=== PATIENT | male | born 1955 | race Caucasian/White ===

== ENCOUNTER → 2019-09-26 13:08 | Outpatient (CLI) | payer MEDICARE, BC, SELFPAY | PROVIDERS: PCP Family Medicine; Referring Provider Family Medicine; Visit Provider Family Medicine | DX: R68.89 Other general symptoms and signs (principal) | CPT/HCPCS: 87635; G2023; U0004 ==

== ENCOUNTER → 2020-08-26 11:32 | Outpatient (CLI) | payer MEDICARE, BC, SELFPAY ==
[2020-08-26 15:38] LABS: AST(SGOT) 16 U/L (15-37); Alanine Aminotransfer ALT/SGPT 20 U/L (16-61); Albumin, Serum 3.6 g/dL (3.2-5.0); Alkaline Phosphatase 95 U/L (45-117); Anion Gap 5 (5-15); BUN 9 mg/dL (7-18); BUN/Creat Ratio 7.5 RATIO (10-20); Calcium,Total 9.1 mg/dL (8.5-10.1); Chloride 97 mmol/L (98-107); Cholesterol 165 mg/dL (200); EST Glomerular Filtration Rate 65 mL/min (>60); Est Glom Filt Rate - Afr Amer 78 mL/min (>60); Globulin 3.5 g/dL (2.2-4.2); Glucose 101 mg/dL (74-106); High Density Lipoprotein 47 mg/dL; Potassium 3.9 mmol/L (3.5-5.1); Protein, Total 7.1 g/dL (6.4-8.2); Sodium Level 134 mmol/L (136-145); Triglycerides 253 mg/dL; Very Low Density Lipoprotein 51 mg/dL (5-40)
== END ==
PROVIDERS: PCP Family Medicine; Referring Provider Family Medicine; Visit Provider Family Medicine
DX: I10 Essential (primary) hypertension (principal); E78.5 Hyperlipidemia, unspecified
CPT/HCPCS: 36415; 80053; 80061

== ENCOUNTER → 2020-09-01 09:27 | Outpatient (CLI) | payer MEDICARE, BC, SELFPAY ==
--- NOTE | 2020-09-01 14:24 | PFTCOMP ---
COMPLETE PULMONARY FUNCTION TEST INTERPRETATION Brief HPI: Patient is a 65 year old male, currently under the care of Dr. Streeter, who presents to [facility] for complete pulmonary function tests secondary to diagnosis of COPD. Respiratory therapist reports good effort and reproducible results. Interpretation: Forced expiration spirometry shows no large airways obstructive ventilatory defect with an FEV1 of 79% predicted. There is no significant bronchodilator response by strict ATS criteria. Spirograms are of good quality and plateau normally. The respiratory flow volume loop shows a normal pattern. Lung volumes by body plethysmography show a normal total lung capacity at 5.15 L, 88% predicted. All other lung volumes are within normal limits. Diffusion capacity by carbon monoxide is normal at 90% predicted. The airway resistance is slightly elevated. No previous pulmonary function tests were available for review. Impression: These pulmonary function tests are grossly within normal limits
== END ==
PROVIDERS: PCP Family Medicine; Referring Provider Family Medicine; Visit Provider Family Medicine
DX: J44.9 Chronic obstructive pulmonary disease, unspecified (principal)
CPT/HCPCS: 94060; 94726; 94729

== ENCOUNTER → 2020-11-04 20:03 | Outpatient (CLI) | payer MEDICARE, BC, SELFPAY ==
--- NOTE | 2020-11-04 09:26 | HP.SP.AD_ITS ---
History - History Date of Eval: 11/02/20 Medical Diagnosis (from RX): CVA,I63.81;Dysarthria,I63.9,R47.1;Right sided weakness,R53.1;Ataxia,I69.393 Date of Onset of Diagnosis: 07/31/20 Previous speech therapy: Yes Results: Home Health for about 2-3 weeks, d/c 2/2 PT/OT recommendations for outpatient balance training. Other Relevant Medical History/Diagnoses/Surgery: Pt seen on this date for skill ed cognitive-linguistic assessment. Pt seen s/p CVA on July 31, 2020. Pt referred to this facility for PT/OT/ST for further evaluation of goals met during home health services since onset of CVA. Pt on speech therapy home health caseload for cognition and dysphagia, however orders for today's evaluation were only for cognition. Pt's present for session. Pt on nasal cannula, 2L. Pt described his typical day at home to include sitting and watching tv 2/2 having depression and no motivation. Pt reported he used to be more active via having a flower garden, however he no longer engages with this activity. MILITARY TECHNOLOGY MANAGER encouraged jigsaw puzzles, word search, and cross words. Pt's reporting Pt is also experiencing 'extensive white brain matter disease,' however it appears at this time Pt does not have a formal dx. 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 Visual Assistive Devices: Glasses Patients Living Arrangements: With Significant Other Subjective Dysphagia - Symptoms Reported Symptoms/Problems with: Choking, Difficulty Swallowing Liquids Other: meds whole w/puree w/no overt s/s of a/p - Current Diet Solids Current Diet: Regular Other: During HH Pt was originally on Puree, however @ d/c MILITARY TECHNOLOGY MANAGER upgraded to regular - Current Diet Liquids Current Liquids: Thin Objective Cog/Ling/Com - Test Administered Njbjbxwpw-Hmunkciqqf-Tymryxmcntdxu Assessment Administered: Yes Xbyyywvqv-Nfmhdtqwyd-Xkyyypjrqczzx Assessment: Cognitive ? Linguistic skills were evaluated using patient/family interview, skilled observation and informal evaluation through tasks completed by the patient. - Orientation Orientation: Person, Place, Day, Birthdate, Medical Diagnosis - Identification Body parts/objects: WFL Numbers: WFL - Answer Yes/No Questions Simple: WFL Complex: WFL - Follows Commands 2 Step: WFL - Repetition Words: WFL Sentences: WFL - Naming Responsive naming: WFL Abstract: Moderate - Recall Repeating Words: Immediate: 0%, benefits from min A semantic cues. Short-term: 0%, benefits from min A semantic cues and max A MC cues. Working memory: Pt demonstrated great difficulty continuous subtracting 7 from 100, He performed the task with 20% acc independently. - Problem Solving Simple: Moderate - Deductive Reasoning Deductive Reasoning: Mild - Cognitive Linguistic Supervision/Saftey Awareness of deficits: WFL Being left home alone: Mild - Executive Function Comments Comments: Pt completed planning, sequencing, and organizing task via clock drawing w/100% acc independently. Pt included appropriate contour, 12 hr markers equally spaced, and had two distinct lengths for the hr/min hands which were placed at the target time. Pt completed attention, problem solving/reasoning, and planning task via alternating trail making task with 100% acc independently following initial task instructions. Pt completed visuospatial task via copying a picture of a cube with 100% acc independently. Cognitive Linguistic Comments - Comments Areas of Greatest Deficits During today's evaluation, Pt demonstrated strengths in executive functioning, attention, and repetition. Areas of need for this Pt include memory, thought flexibility, and problem solving/reasoning. Objective Dysarthira/Motor - Speech Intelligibility Single Words: WFL Phrases: WFL Sentences: Mild Paragraphs: Mild Conversation: Mild - Volume Volume: WFL Loudness: [place] loudness - Observation Observation of Apraxia of Speech: No Oral Groping for Placement: No Inconsistent Errors: No - Awareness/Strategy Use Uses strategies intermittently to improve intelligibility or listener's understanding of message: Yes - Comments Informal Observations -: Pt's speech was observed informally throughout conversation tasks during session. Pt is edentulous and does not like to wear his dentures. Given his lack of dentition, Pt's baseline speech intelligibility would be expected to be lower than a speaker with dentition. This unknown speaker would rate his speech intelligibility as 75% acc during conversation. Pt would benefit from direct education re: compensatory strategies to assist in improving overall speech intelligibility. Plan - Plan Plan: Will recommend Pt for weekly outpatient speech therapy to address mild- moderate cognitive impairment characterized by immediate and short term memory loss, difficulty with word retrieval, and problem solving/reasoning. Pt would benefit from training in compensatory strategies for recall and word retrieval, as well as cognitive training to improve cognitive functioning. Without skilled ST services, the Pt is at risk for decreased independence completing daily living tasks. - Recommendations MBS: Yes Treatment Warranted: Yes - Frequency Frequency: 1x/Week Duration: 6 Weeks Visits in this POC: 6 - Prognosis Prognosis: Good - Goals that are Established: Determination:: Goals will be added/modified as deemed necessary and appropriate. Therapy will be discontinued when results of re-evaluation indicate therapy is no longer needed or lack of progress has been documented. - Goal #1-5 Goal #1: Pt will complete basic to mod complex immediate, short-term, and working memory tasks with 90% acc independently across 3 measured opportunities. Goal #2: Pt will complete basic to mod complex functional math, money, and time tasks with 90% acc independently across 3 measured opportunities. Goal #3: Pt will complete basic to mod complex problem solving/reasoning and safety awareness tasks with 90% acc independently across 3 measured opportunities Goal #4: Pt will complete basic to mod complex divergent naming tasks with 90% acc independently across 3 measured opportunities to improve word retrieval. Goal #5: Pt will utilize compensatory strategies to improve speech clarity with 90% acc in simple to mod complex conversation independently across 3 measured opportunities. Education - Patient has Indicated that the Following Identified Educational Needs: None The Patient has indicated that they have no educational or learning abilities that may effect their care.: Yes - Patient Instruction Patient Education: Treatment Plan, Goals Person Taught: Patient, Significant Other Teaching Method: Discussion Response to teaching: Return demonstration, Verbalize understanding
== END ==
PROVIDERS: PCP Family Medicine; Referring Provider Family Medicine; Visit Provider Family Medicine
DX: G47.10 Hypersomnia, unspecified (principal); I63.9 Cerebral infarction, unspecified; I69.322 Dysarthria following cerebral infarction; I69.351 Hemiplegia and hemiparesis following cerebral infarction affecting right dominant side; I69.393 Ataxia following cerebral infarction; Z99.81 Dependence on supplemental oxygen
CPT/HCPCS: 92523; 95810

== ENCOUNTER → 2020-11-27 20:00 | Outpatient (CLI) | payer MEDICARE, BC, SELFPAY | PROVIDERS: PCP Family Medicine; Referring Provider Family Medicine; Visit Provider Family Medicine | DX: G47.33 Obstructive sleep apnea (adult) (pediatric) (principal); R09.02 Hypoxemia | CPT/HCPCS: 95811 ==

== ENCOUNTER → 2020-12-15 20:00 | Outpatient (CLI) | payer MEDICARE, BC, SELFPAY | PROVIDERS: PCP Family Medicine; Referring Provider Family Medicine; Visit Provider Family Medicine | DX: G47.31 Primary central sleep apnea (principal) | CPT/HCPCS: 95811 ==

== ENCOUNTER → 2021-01-15 12:49 | Outpatient (CLI) | payer MEDICARE, BC, SELFPAY ==
[2021-01-15 13:11] VITALS: PULSE 103; PULSE 106; PULSE 109; PULSE 115; PULSE 79; PULSE 81; PULSE 95; O2SAT 90; O2SAT 91; O2SAT 92; O2SAT 93; O2SAT 94; O2SAT 97
--- NOTE | 2021-01-16 10:18 | PCM.PSN.6M ---
PSN 6 Minute Walk Test 6 Minute Walk Test 6 Minute Walk Test: 6 Minute Walk Test PSN:6-Minute Walk Test Start: 01/15/21 13:11 Freq: Status: Active Protocol: [id number].[id number] Document 01/15/21 13:11 KIAH (Rec: 01/15/21 13:13 KIAH [id number]) 6 Minute Walk Test Date Performed 01/15/21 Time Performed 13:00 Height 5 ft 7 in Weight: 86.183 kg Weight in Pounds 190.[address]: Eduardo Streeter Assistive device used: None Pre-test Oxygen Delivery Method Room Air Pulse Ox (%) 92 Pulse Rate (60-100 beats/min) 79 Dyspnea Kiana Scale (0-10) 0 Exertion Kiana Scale (6-20) 6 1st minute Oxygen Delivery Method Room Air Pulse Ox (%) 91 Pulse Rate (60-100 beats/min) 95 2nd minute Oxygen Delivery Method Room Air Pulse Ox (%) 90 Pulse Rate (60-100 beats/min) 103 H 3rd minute Oxygen Delivery Method Room Air Pulse Ox (%) 92 Pulse Rate (60-100 beats/min) 115 H 4th minute Oxygen Delivery Method Room Air Pulse Ox (%) 92 Pulse Rate (60-100 beats/min) 109 H 5th minute Oxygen Delivery Method Room Air Pulse Ox (%) 93 Pulse Rate (60-100 beats/min) 106 H 6th minute Oxygen Delivery Method Room Air Pulse Ox (%) 94 Pulse Rate (60-100 beats/min) 109 H Dyspnea Kiana Scale (0-10) 3 Exertion Kiana Scale (6-20) 13 Post-test Oxygen Delivery Method Room Air Pulse Ox (%) 97 Pulse Rate (60-100 beats/min) 81 Full Laps Walked 20 Partial Lap, Number of Tiles Walked 10 Total Distance Walked (ft) 1190 Interpretation Interpretation: The patient ambulated 1190 feet over the course of 6 minutes beginning on room air without assistive devices. Pretesting oxygen saturation was noted to be 92% on room air. With ambulation, the elza oxygen saturation was 90%. There was no significant exertional oxygen desaturation. Recommendations Recommendations: There is no indication for the use of supplemental oxygen at this time.
== END ==
PROVIDERS: PCP Family Medicine; Referring Provider Family Medicine; Visit Provider Family Medicine
DX: R09.02 Hypoxemia (principal); Z87.891 Personal history of nicotine dependence
CPT/HCPCS: 94618

== ENCOUNTER → 2021-01-28 13:26 | Outpatient (CLI) | payer MEDICARE, BC, SELFPAY ==
--- NOTE | 2021-01-28 15:14 | ST.MBS ---
Modified Barium Swallow - Patient Information Study Date: 01/28/21 Study Time: 13:30 Direct Billable Minutes: 135 Total Minutes procedure & reportin Diagnosis: CVA Referring Physician: Eduardo Streeter Reason for Referral: Suspected aspiration/penetration of thin liquids Medical History: Pt seen on this date d/t concerns of aspiration/penetration at bedside during OP speech therapy at [facility]. Pt w/ overt s/s of aspiration/penetration w/thin liquids at bedside when consuming sips of water throughout OP therapy sessions. Pt s/p CVA on July 31, 2020. Pt referred to this facility for PT/OT/ST for further evaluation of goals met during home health services since onset of CVA. Pt was receiving speech therapy home health for cognition and dysphagia, however orders for the outpatient evaluation were only for cognition, so BSE was not performed. Today, Pt's present for session. Pt described his typical day at home to include sitting and watching tv 2/2 having depression and no motivation. Pt reported he used to be more active via having a flower garden, however he no longer engages with this activity. Pt's reporting Pt is also experiencing 'extensive white brain matter disease,' however it appears at this time Pt does not have a formal dx. At this time, Pt and Pt's endorse difficulty w/thin liquids and choking on solids at home. Current Diet Ordered: Regular/Thins Dentition: Edentulous Mental Status: Impaired Comment: Cognitive deficits: memory, problem solving/reasoning Respiratory Status: Oxygenating on Room Air - Penetration-Aspiration Scale Penetration-Aspiration Scale: OBJECTIVE ASSESSMENT OF SWALLOW FUNCTION (QUANTITATIVE ? PER TRIAL): PENETRATION / ASPIRATION SCALE (DIAL): 1 = does not enter airway 2 = enters airway/above vocal folds/ejected 3 = enters airway/above vocal folds/not ejected 4 = enters airway/contacts vocal folds/ejected 5 = enters airway/contacts vocal folds/not ejected 6 = enters airway/below vocal folds/ejected 7 = enters airway/below vocal folds/not ejected despite effort 8 = enters airway/below vocal folds/no effort VIDEOFLOROSCOPIC SCALE SCORE (DIAL): Grade I = aspiration of material that has penetrated into the laryngeal vestibule, intact cough reflex Grade II = aspiration < 10 % of the bolus, intact cough reflex Grade III = aspiration of < 10 % of the bolus, reduced cough reflex or aspiration of > 10 % of the bolus, intact cough reflex Grade IV = aspiration of > 10 % of the bolus, reduced cough reflex - Penetration-Aspiration Scale Score Thin Liquid via teaspoon Result: 1= does not enter airway Thin Liquid via teaspoon Trial 2 Result: 1= does not enter airway - Increased residue; Cued reswallow Thin Liquid via large single sip from cup Result: 3= enters airways/above vocal folds/not ejected - Penetration w/second swallow Thin Liquid via sequential sips from cup Result: 8= enters airway/below vocal folds/no effort - SILENT ASPIRATION [place] Thick Liquid via large single sip from cup Result: 3= enters airways/above vocal folds/not ejected [place] Thick Liquid via small single sip from cup Result: 2= enter airway/above vocal folds/ejected [place] Thick Liquid via small single sip from cup Result: 1= does not enter airway - Cued reswallow 2/2 increased residue Pudding via teaspoon Result: 1= does not enter airway Cookie Result: 1= does not enter airway - Pt required two swallows to clear from oral cavity. Thin Liquid via small single sip from cup Effortful swallow Result: 8= enters airway/below vocal folds/no effort - SILENT ASPIRATION Thin Liquid via small single sip from cup - Oral Hold Result: 1= does not enter airway Thin Liquid via small single sip from cup Chin tuck Result: 3= enters airways/above vocal folds/not ejected Thin Liquid via single sip from straw Result: 1= does not enter airway - Cued double swallow to clear residue - Oral Phase Labial Seal: No Labial Escape Tongue Control During Bolus Hold: Posterior escape of less than half of bolus Bolus Preparation/Mastication: Slow prolonged chewing/mashing with complete recollection Bolus Transport/Lingual Motion: Delayed initiation of tongue motion Oral Residue: Trace residue lining oral structures - Pharyngeal Phase Initiation of Pharyngeal Swallow: Bolus head in pyriforms Soft Palate Elevation: Trace column of contrast/air between soft palate and pharyngeal wall Laryngeal Elevation: Partial superior movement thyroid cart/partial apprx aryt-epig petiole Anterior Hyoid Excursion: Partial anterior movement - Very minimal anterior excursion. Epiglottic Movement: Partial inversion Laryngeal Vestibule Closure at Height of Swallow: Incomplete; narrow column of air/contrast in laryngeal vestibule Pharyngeal Stripping Wave: Present - diminished - Reduced pharyngeal pressure/contraction Pharyngoesophageal Segment Opening: Parital distension and partial duration; parital obstruction of flow Tongue Base Retraction: Trace column of contrast between tongue base & post. pharyngeal wall Pharyngeal Residue: Collection of residue within or on pharyngeal structures - Esophageal Phase Esophageal Clearance: Esophageal retention - Treatment Strategies Effects of treatment strategies attemped:: Chin tuck posture = INEFFECTIVE 3 second bolus hold = EFFECTIVE Cough and reswallow = MOD EFFECTIVE Effortful swallow = EFFECTIVE W/SMALL BOLUS Double swallow = EFFECTIVE Reduced bolus size = EFFECTIVE - Diagnosis/Impression Diagnosis: Moderate Oropharyngeal Dysphagia (R13.12) Impression: The oral phase is primarily marked by: Mild mastication insufficiency likely 2/2 Pt being edentulous. Swallow onset delay approximately 2-3 seconds in length resulting in premature bolus loss to the pyriform sinuses The pharyngeal phase is primarily marked by: Delayed pharyngeal swallow onset timing resulting w/head of bolus in pyriform sinus contributing to prandial aspiration Poor epiglottic inversion resulting in reduced closure of the airway during deglutition Reduced laryngeal elevation and anterior hyoid excursion resulting in poor laryngeal vestibule closure and reduced PES distention SILENT ASPIRATION of thin liquids w/large or sequential cup sips Reduced strength of tongue base retraction and pharyngeal contraction/stripping wave coupled w/ reduced hyolaryngeal elevation and excursion resulted in insufficient epiglottic inversion, insufficient laryngeal vestibule closure, and reduced distention/duration of the PES w/noted significant residue remaining in the valleculae and lining the aryepiglottic folds. Small drinks, bolus hold, and double effortful swallows were effective to reduce amount of initial residue The esophageal phase is primarily marked by: Minimal esophageal retention below the level of the PES - Recommendations Diet: Mechanical Soft Textures - Easy to Chew, Thin Liquids Comment: Straws OK w/small sips Compensatory Strategies: Small Bites, Small Sips - One at a time, Slow Rate, Multiple Swallows - Two effortful swallows for every bite/drink, Alternate bites/solids and sips/liquids, Sitting upright, Remain sitting upright for 30 minutes after PO intake, Assist with verbal cues to use recommended strategies Supervision: 1:1 Close Supervision Recommend Repeat Modified Barium Swallow: TBD Need for Skilled Speech Therapy Services: Yes - Continue w/OP speech therapy Comment: Patient requires intensive skilled speech-language intervention targeting: continued diet texture management training and implementation of recommended compensatory strategies detailed above to reduce aspiration risk training and implementation of recommended oropharyngeal strengthening exercises to facilitate improved lingual strength, laryngeal vestibule closure/pressure, pharyngeal motility w/hyolaryngeal elevation, tongue base retraction), and PES opening ([place], [place], [place]aker, Effortful Swallows) Education Completed: 1. Described result of evaluation., 2. Pt understands evaluation & agrees with goals and treatment plan., 4. Family/caregivers understand evaluation & agree w/ goals & tx plan., 7. Pt requires further education on strategies & risks. - Status Active ST Patient: Active
== END ==
PROVIDERS: PCP Family Medicine; Referring Provider Family Medicine; Visit Provider Family Medicine
DX: R13.10 Dysphagia, unspecified (principal); Z86.73 Personal history of transient ischemic attack (TIA), and cerebral infarction without residual deficits
CPT/HCPCS: 74230; 92611

== ENCOUNTER 2021-02-22 15:00 | Outpatient (RCR) | payer MEDICARE, BC, SELFPAY ==
--- NOTE | 2020-10-08 16:09 | HP.PTEVAL ---
Patient's Visit Information MICHELE ALLEN is a 65 year old M referred to Physical Therapy by Dr. Eduardo Streeter, DO with a diagnosis of CVA, L/S stenosis, falls, dizzyness. Date of Evaluation: 10/08/20 Physical Therapist: Emiliano Rocha, DPT, OCS, CSCS - Visit Plan Frequency: 3x /Week Duration: 4-6 Weeks Plan: 3x/week for 3-6 weeks for. 1. sink and home based ex for postural and LE strength and progress to I. 2. Gait training for balance with weight shfit, turning, high step, stairs, head movements. 3. Progress to gym based strengthening to tolerance. 4. HS and gastroc stretching. - Subjective I had a stroke on 07/31/20, speech became rough. Went to ER and had CATSCAN adn has had 3 strokes, changed meds for cholesterol adn HTN. Found COPD , sleep apnea tests to be done. Then went to [facility] for rehab. Did not like it. Too loud and interruptive. Was in 4-5 days. Went home for home heatlh for PT, OT, speech and now PT. Has fallen 3x adn stumbles often. Had some balance issues prior to stroke. Will ahve OT and speech next week. Sees Dr. Olguin for neuro. No pain. Is on disability since 2004, fell of doc and brike hip and has had some back and hip issues since. Will see [facility] for knee adn hip soon. H/Oneck surgery. Balance much worse since stroke, no spinning dizzyness. Has had two falls since home and maybe due to fatigue. One time fell getting into car. One time tripped over o2. Has o2 since stroke and pushes tank around. Feels weak on R side adn generally. Has steps at home which with raling which he seems to maneuver OK. Carpeting is more challenging. Can catch R foot. Does not use cane or walker. Sleeping is not great and will have study. Basic ADLs are OK and gets bathroom I. Spends day sitting around. Doesn't have any hobbies and very sedentary. No regular exercises. - Objective 99% SO2 on oxygen, and 74 Resting heart rate. 93% after 500 feet walk and steps ith 88 HR. No obvious SOB. I ambulation today without AD. Trasnfers bed and chair I. Steps with rail reciprocal and I, slightly tired after. HS and gastroc mod tight. L/S AROM WFL and imited in standing more by balance. reflexes 3/3 patella adn achilles. Sensatio LE WNL to gross light touch. Coordination to reciprocal toe tap slight R deficits, heel to wells OK. LE AROM WFL. Strength LE 4 R and 4+/L. UE AROM WFL but R elevation limited slightly vs L and weaker 4- vs 4 in UE. - Balance Scores Functional Gait Assessment Score: 21 % Disability: 30.0000 CATSIB Score (Max score 120 seconds): 64 - Goals Goal 1:: Pt I appropriate home strength to limit effects of sedentary lifestyle Goal Time Frame: 4-6 Weeks Goal 2:: Pt score 25+/30 on FGA to limit fall risk. Goal Time Frame: 4-6 Weeks Goal 3:: Pt feel back to mobility and safety level prior to stroke. Goal Time Frame: 4-6 Weeks Goal 4:: 43/30 LEFS to show improved mobility. - Rehabilitation Potential Physical Therapy Diagnosis: Pt very sedentary and weaker R side giving fall risk and limiting mobility Rehabilitation Potential: Fair - Anticipated Interventions Patient/Client Instruction: Educate patient on: Condition, Plan of Care For the Purpose of:: To improve muscle performance and motor function, To increase tolerance to activity/condition/position, To improve gait and locomotor functions Therapeutic Exercise to Include: Strength training, Balance training, Flexibilty training, Gait and locomotor training For the Purpose of:: To improve muscle performance and motor function, To improve ability of physical actions for home/community/work/leisure, To improve gait and locomotor functions, To improve balance Thank you for the opportunity to evaluate your patient. For Medicare and Medicare HMO plans, please review the plan of care and approve it. It will need to be FAXED BACK to us at [phone] for Medicare purposes. For Medicare only, by signing this I certify the plan of care. Please let me know if there are questions or concerns regarding this plan of care. Physician Signature: Date:
--- NOTE | 2020-11-05 15:54 | HP.OTEVAL_ITS ---
Patient's Visit Information MICHELE ALLEN is a 65 year old M, referred to Occupational Therapy by Dr. Eduardo Streeter DO, with a diagnosis of CVA weakness. Date of Evaluation: 11/02/20 Occupational Therapist: JOE Chaparro/Briseyda, CHT - Subjective This 65 year old male was seen for OT eval with dx of CVA. pt states three mon ths ago he woke up and couldn't talk well - called squad and was taken to ER. pt states his right side does feel weak, pt was placed on O2 2 liters following his stroke. pt is right handed and is having trouble with his handwriting, cutting food. Disability since 2004. pt states he has spends time watching tv. Pt states he feels he has lost strength since his stroke and this has affected his ind. with ADLS and IADLs, cutting food and limited writing. pt states he was ind. with driving to the pharmacy and to his dr. solano. is retired but she does go to check on her 93 year old mother daily for a few hours. pt states he does struggle with depression. states pt was dx small vessel disease effecting white matter. - Pain back pain 0 Pain Intensity Range: 0, 5 - ROM ROM Comments: pt demo bilateral ROM WNL - Strength Shoulder: right 4/5 left 4+/5 Elbow: right 4/5 left 4+/5 Small Appliance Assembly Supervisor: right 50# left 65# Lateral Pinch: right 10# left 10# Tripod Pinch: right 8# left 10# - Sensation Sensation Comments: denies - Nine Hole Peg Right: 40.34 sec. Left: 28.36 sec. - Quick DASH-Disab of Arm,Shoulder& Hand Quick DASH Score: 34.0900 - Goals Goal:: pt will demo a increase in UE MMT to 5/5 to increase pts ind. with ADLs and IADls by d.c. pt will demo a increase in right tree thinner strength by 15# or greater to increase pts ind. with ADLs and IADLs by d/c Goal:: pt will demo a reduction in right hand 9hole peg testing to less than 30sec. indicating increase in FMS by d.c. pt will demo legible writing ability by d.c Goal:: pt will report he is IND with food cutting without spillage by d/c - Rehabilitation General Assessment: pt demo with weakness and limitations with his FMS. This is limiting pts ind with ADLs and IADLS. pt would benefit from skilled OT services 2-3x week for 4 weeks to increase his functional strength and increase fine motor coordination. Pt demo understanding and agrees with POC. agrees as well. Rehabilitation Potential: Good - Anticipated Interventions A/AAROM/PROM, Strengthening, Fine Motor Coord/Jose, Neuro Reeducation - Visit Plan Frequency: 2-3x /Week Duration: 4 Weeks TEXT: Thank you for the opportunity to evaluate your patient. For Medicare and Medicare HMO plans, please review the plan of care and approve it. It will need to be FAXED BACK to us at [phone] for Medicare purposes. Please let me know if there are questions or concerns regarding this plan of care. Physician Signature: Date:
--- NOTE | 2020-11-16 09:33 | HP.SP.AD_ITS ---
History - History Date of Eval: 11/02/20 Medical Diagnosis (from RX): CVA,I63.81;Dysarthria,I63.9,R47.1;Right sided weakness,R53.1;Ataxia,I69.393 Previous speech therapy: Yes Results: Home Health for about 2-3 weeks, d/c 2/2 PT/OT recommendations for outpatient balance training Other Relevant Medical History/Diagnoses/Surgery: Pt seen on this date for skilled cognitive-linguistic assessment. Pt seen s/p CVA on July 31, 2020. Pt referred to this facility for PT/OT/ST for further evaluation of goals met during home health services since onset of CVA. Pt on speech therapy home health caseload for cognition and dysphagia, however orders for today's evaluation were only for cognition. Pt's present for session. Pt on nasal cannula, 2L. Pt described his typical day at home to include sitting and watching tv 2/2 having depression and no motivation. Pt reported he used to be more active via having a flower garden, however he no longer engages with this activity. NEUROLOGY TECHNICIAN encouraged jigsaw puzzles, word search, and cross words. Pt's reporting Pt is also experiencing 'extensive white brain matter disease,' however it appears at this time Pt does not have a formal dx. 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 Linguistic skills were evaluated using patient/family interview, skilled observation and informal evaluation through tasks completed by the patient. - Orientation Orientation: Person, Place, Day, Birthdate, Medical Diagnosis - Identification Body parts/objects: WFL Numbers: WFL - Answer Yes/No Questions Simple: WFL Complex: WFL - Follows Commands 2 Step: WFL - Repetition Words: WFL Sentences: WFL - Naming Responsive naming: WFL Abstract: Moderate - Recall Repeating Words: Immediate: 0%, benefits from min A semantic cues. Short-term: 0%, benefits from min A semantic cues and max A MC cues. Working memory: Pt demonstrated great difficulty continuous subtracting 7 from 100, He performed the task with 20% acc independently. - Problem Solving Simple: Moderate - Deductive Reasoning Deductive Reasoning: Mild - Cognitive Linguistic Supervision/Saftey Awareness of deficits: WFL Being left home alone: Mild - Executive Function Comments Comments: Pt completed planning, sequencing, and organizing task via clock drawing w/100% acc independently. Pt included appropriate contour, 12 hr markers equally spaced, and had two distinct lengths for the hr/min hands which were placed at the target time. Pt completed attention, problem solving/reasoning, and planning task via alternating trail making task with 100% acc independently following initial task instructions. Pt completed visuospatial task via copying a picture of a cube with 100% acc independently. Cognitive Linguistic Comments - Comments Areas of Greatest Deficit During today's evaluation, Pt demonstrated strengths in executive functioning, attention, and repetition. Areas of need for this Pt include memory, thought flexibility, and problem solving/reasoning. Objective Dysarthira/Motor - Speech Intelligibility Single Words: WFL Phrases: WFL Sentences: Mild Paragraphs: Mild Conversation: Mild - Volume Volume: WFL Loudness: [place] loudness - Observation Observation of Apraxia of Speech: No Oral Groping for Placement: No Inconsistent Errors: No - Awareness/Strategy Use Uses strategies intermittently to improve intelligibility or listener's understanding of message: Yes - Comments Informal Observations -: Pt's speech was observed informally throughout conversation tasks during session. Pt is edentulous and does not like to wear his dentures. Given his lack of dentition, Pt's baseline speech intelligibility would be expected to be lower than a speaker with dentition. This unknown speaker would rate his speech intelligibility as 75% acc during conversation. Pt would benefit from direct education re: compensatory strategies to assist in improving overall speech intelligibility. Plan - Plan Plan: Will recommend Pt for weekly outpatient speech therapy to address mild- moderate cognitive impairment characterized by immediate and short term memory loss, difficulty with word retrieval, and problem solving/reasoning. Pt would benefit from training in compensatory strategies for recall and word retrieval, as well as cognitive training to improve cognitive functioning. Without skilled ST services, the Pt is at risk for decreased independence completing daily living tasks. - Recommendations MBS: Yes Treatment Warranted: Yes - Frequency Frequency: 1x/Week Duration: 6 Weeks Visits in this POC: 6 - Prognosis Prognosis: Good - Goals that are Established: Determination:: Goals will be added/modified as deemed necessary and appropriate. Therapy will be discontinued when results of re-evaluation indicate therapy is no longer needed or lack of progress has been documented. - Goal #1-5 Goal #1: Pt will complete basic to mod complex immediate, short-term, and working memory tasks with 90% acc independently across 3 measured opportunities. Goal #2: Pt will complete basic to mod complex functional math, money, and time tasks with 90% acc independently across 3 measured opportunities. Goal #3: Pt will complete basic to mod complex problem solving/reasoning and safety awareness tasks with 90% acc independently across 3 measured opportunities Goal #4: Pt will complete basic to mod complex divergent naming tasks with 90% acc independently across 3 measured opportunities to improve word retrieval. Goal #5: Pt will utilize compensatory strategies to improve speech clarity with 90% acc in simple to mod complex conversation independently across 3 measured opportunities. Education - Patient has Indicated that the Following Identified Educational Needs: None The Patient has indicated that they have no educational or learning abilities that may effect their care.: Yes - Patient Instruction Patient Education: Diagnosis, Treatment Plan, Goals Person Taught: Patient, Significant Other Teaching Method: Discussion Response to teaching: Return demonstration, Verbalize understanding
--- NOTE | 2020-12-03 07:41 | OTREVAL_ITS ---
Dr. Eduardo Streeter, DO, It has been my pleasure to treat MICHELE ALLEN over the last 9 visits for CVA weakness. Please see the progress note below for an update on the occupational therapy plan of care! Subjective: Pt arrives to session with and O2 tank. Pt states that he is doing fine. Objective/Function: pt has been seen for 9 OT visits- pt has a HEP for UB strength using t-band and free wts. In OT therapy is challenging him with a divers PRE program on the BTE and FMS. Pt became fatigued very easily today, so times were reduces, but resistance was increased. Nine Hole Peg: Decreased from 40 seconds to 37.72 seconds. MMT of BUE 4+/5. After re-measure pt demo with making gains with strength and endurance of UB and talking with pt's , pt would benefit from 2x a week for 4 more weeks starting after 12/18/20 to keep increasing strength and FMS and independence in ADLs and IADLs. Plan Frequency: 2x /Week Duration: 4 Weeks Plan: cont POC. initiate gym equipment. Fine motor Goals - Goals Patient Goals: Regain Strength, Use Hand/Wrist/Arm Normally Again, Be More Independent in ADLS Goal:: pt will demo a increase in UE MMT to 5/5 to increase pts ind. with ADLs and IADls by d.c. pt will demo a increase in right planting supervisor strength by 15# or greater to increase pts ind. with ADLs and IADLs by d/c Goal:: pt will demo a reduction in right hand 9hole peg testing to less than 30sec. indicating increase in FMS by d.c. pt will demo legible writing ability by d.c Goal:: pt will report he is IND with food cutting without spillage by d/c Anticipated Interventions Anticipated Interventions: A/AAROM/PROM, Strengthening, Fine Motor Coord/Jose, Neuro Reeducation Please do not hesitate to contact me at [phone] by phone or if you have questions or concerns regarding this new plan of care! Sincerely, Radha Caal, OTR/L, CHT
--- NOTE | 2020-12-30 14:20 | HP.PTREVAL_ITS ---
Dr. Eduardo Streeter, DO, It has been my pleasure to treat MICHELE ALLEN over the last 18 visits for CVA, L/S stenosis, falls, dizzyness. Please see the progress note below for an update on the physical therapy plan of care! Subjective: I am getting better. OT going much better. Getting around a lot better. Balance is not the greatest yet but can walk functionally OK. Still doesn't trust self on steps as he needs to hang on the handrail. Sleep is so- so. Will get CPAP today. Still on O2. Basic ADLs I at home. Has not mowed the lawn due to fatigue. Not doing home exercises regularly. Saw Syl yesterday and getting CPAP for sleep apnea. Will have MBS also. Objective/Function: FGA is +4 from last session and +6 opverall. improving confidence with ambulation. Noncompliance with hoime walking and HEP have limited progress but due to fatigue which CPAP could help out with. Plan Plan: f/u one month for FGA and activity check adn d/c if doing well, pt to call prior if problems. Goal is to maintain improvement over next month without regular PT but via HEP Balance/Gait/Functional tests - Balance/Special Test Scores Functional Gait Assessment Score: 27 % Disability: 10.0000 CATSIB Score (Max score 120 seconds): 64 Lower Extremity Functional Score: 38 Goals Goal 1:: Pt I appropriate home strength to limit effects of sedentary lifestyle Goal Time Frame: 4-6 Weeks Goal Progress: noncompliant Goal 2:: Pt score 25+/30 on FGA to limit fall risk. Goal Time Frame: 4-6 Weeks Goal Progress: Goal Met Goal 3:: Pt feel back to mobility and safety level prior to stroke. Goal Time Frame: 4-6 Weeks Goal Progress: 60% Goal 4:: 43/30 LEFS to show improved mobility. Goal Progress: slow progress. Goal 5:: Walk 8 houses down at home without pain or fatigue. Goal Time Frame: 4-6 Weeks Goal Progress: noncompliant trying. Anticipated Interventions Patient/Client Instruction: Educate patient on: Condition, Plan of Care For the Purpose of:: To improve muscle performance and motor function, To increase tolerance to activity/condition/position, To improve gait and locomotor functions Therapeutic Exercise to Include: Strength training, Balance training, Flexibilty training, Gait and locomotor training For the Purpose of:: To improve muscle performance and motor function, To improve ability of physical actions for home/community/work/leisure, To improve gait and locomotor functions, To improve balance Please do not hesitate to contact me at [phone] by phone or if you have questions or concerns regarding this new plan of care! Sincerely, Emiliano Rocha, DPT, OCS, CSCS
--- NOTE | 2020-12-30 16:07 | HP.OTDCSUM ---
It has been my pleasure to treat MICHELE ALLEN under orders from Dr. Eduardo Streeter DO, for the diagnosis of CVA weakness for a total of 16 visit(s). Please see the following information for a summary of their discharge status. % Improvement: 75 Objective/Function: MMT SH: 4+/5 (was 4/5 at eval). MMT Elbow: 4+/5 (was 4/5 at eval). 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 3-J: 16# (was 8# at eval). Nine-hole: R- 31.53 (was 40.34 sec). pt has demo a increase in strength Patient Goals: Regain Strength, Use Hand/Wrist/Arm Normally Again, Be More Independent in ADLS Goal:: pt will demo a increase in UE MMT to 5/5 to increase pts ind. with ADLs and IADls by d.c. pt will demo a increase in right fire extinguisher repairer inspector strength by 15# or greater to increase pts ind. with ADLs and IADLs by d/c Goal:: pt will demo a reduction in right hand 9hole peg testing to less than 30sec. indicating increase in FMS by d.c. pt will demo legible writing ability by d.c Goal:: pt will report he is IND with food cutting without spillage by d/c Plan: d/c Discharge Comments: Pt was seen for 16 visits to increase strength and FMS after a CVA. He has met 3/5 goals, with those progressing at home. He has made significant gains since the beginning of therapy and should be d/c at this time. Pt to continue to do HEP and continue to help around the house to continue to increase strength and FMS. Pt and agree and understand d/c. If there are questions or concerns regarding this patient's occupational therapy, please fell free to call me at [phone]. Thank you for the referral of this patient. Sincerely, Radha Caal, OTR/L, CHT
--- NOTE | 2021-04-22 10:57 | HP.SP.DC ---
ST Discharge Summary - Discharged: Discharge: MICHELE ALLEN, 66 yo male, was seen for initial speech evaluation at [facility] on 11/16/2020 secondary to dx of CVA. Pt attended 9 additional sessions from initial evaluation targeting dysarthria, memory, problem solving/reasoning, and executive functioning skills. Pt being discharged from speech therapy caseload on this date, 04/22/21, after deeming Pt is close to baseline functioning. Home exercise program provided for memory skills. Thank you for allowing me to participate the care of your Pt. Will reevaluate at Pt?s request following script from physician.
== END 2021-02-22 19:00 | disposition home or self-care (01) ==
LOC: SP 15:00
PROVIDERS: PCP Family Medicine; Referring Provider Family Medicine; Visit Provider Family Medicine
DX: I69.322 Dysarthria following cerebral infarction (principal); I69.393 Ataxia following cerebral infarction; I69.351 Hemiplegia and hemiparesis following cerebral infarction affecting right dominant side
CPT/HCPCS: 92507; 92526; 97110; 97163; 97164; 97166; 97530

== ENCOUNTER → 2021-09-13 | Outpatient (CLI) | payer MEDICARE, BC, SELFPAY ==
--- NOTE | 2021-09-13 16:20 | MRI_ITS ---
STUDY: MRI CERVICAL SPINE WITHOUT CONTRAST REASON FOR EXAM: Male, 66 years old. Gait disorder; Hx cervical spine fusion; neck pain TECHNIQUE: Standardized fat and water weighted pulse sequences were obtained in the sagittal and axial planes. COMPARISON: None FINDINGS: Normal foramen magnum and brainstem-cervical cord junction. Cerebellar tonsils are normally positioned. Normal craniovertebral junction. The odontoid is intact. Mild degenerative spurring noted about the predental distance. There is straightening of the normal cervical lordosis. Solid interbody fusion noted at the C4/5, C5/6 and C6/7 levels; an anterior fixation plate and screws extend from C4 to C7, with associated signal dropout and distortion. C2/3 disc is degenerated; neural foramina are patent at this level. C3/4 disc is degenerated with annular bulging and marginal osteophytes. There is minimal right paracentral broad-based disc protrusion at this level, indenting the ventral aspect of the thecal sac and minimally contacting the cervical cord, which is not effaced. Neural foramina are severely narrowed bilaterally at this level by uncinate and facet hypertrophy. Posterior osseous ridge at C4 minimally indents the ventral aspect of the thecal sac. Additional posterior osseous ridge at the C7 level minimally flattens the ventral aspect of the thecal sac. Neural foramina are widely patent at the C4/5 level. There is moderate asymmetric narrowing of the left neural foramen at C5/6 by uncinate hypertrophy. There is mild left-sided neural foraminal encroachment at C6/7 by uncinate hypertrophy. C7/T1 neural foramina are patent. Upper thoracic discs are degenerated without evidence for annular bulge or disc extrusion. There is no thecal sac stenosis. No intrinsic signal abnormalities are noted within the cervical cord. There is no abnormal epidural fluid collection. Cervical facet arthritis is present, most severe at C3/4. MRI/Spine Cervical (Routine) IMPRESSION: Solid interbody fusion from C4 to C7 with anterior fixation plate and screws in place. Annular bulging, minimal right paracentral disc protrusion, and bilateral facet hypertrophy at C3/4 level. No thecal sac stenosis or intrinsic cervical cord signal abnormalities identified. Electronically Signed: Brad Castillo MD at 1:14 EDT ,
--- NOTE | 2021-09-13 16:20 | MRI_ITS ---
STUDY: MRI BRAIN WITH AND WITHOUT CONTRAST REASON FOR EXAM: Male, 66 years old. Hx CVA; mild cognitive impairment; gait disorder TECHNIQUE: Standardized multiplanar fat and water weighted pulse sequences were obtained. IV DOTAREM 20 CC was administered for the contrast portion of the examination. COMPARISON: None. FINDINGS: Old lacunar infarct with cystic parenchymal loss is present in the posterior aspect of the left thalamic lobe and within the central aspect of the left caudate nucleus/basal ganglia. There is mild to moderate cerebral atrophy with widening of the extra-axial spaces and ventricular dilatation. There are multiple white matter hyperintensities, distributed throughout the deep white matter tracts of the cerebral hemispheres, consistent with moderate chronic white matter ischemic changes. There is no evidence for recent intracranial ischemia or other cause of cytotoxic edema on diffusion weighted imaging (DWI). No focal or suspicious parenchymal lesions of the brain. No abnormal enhancement of the brain parenchyma or meninges or dura. No visualized thickening of the meninges or dura. There is no extra-axial fluid accumulation. Normal flow voids within the major intracranial circulation suggesting patency by spin echo criteria. Normal venous enhancement. There is no enhancing intra-axial or extra-axial abnormality. Normal sella turcica, pituitary gland, infundibular stalk, optic chiasm and hypothalamus. Normal tectal plate and pineal gland. Normal midbrain, arturo and medulla. Normal cerebellum. Normal basal cisterns. Normal bilateral temporal bones. Normal bilateral internal auditory canals. No demonstrated orbital abnormality, within the constraints of a routine brain study. Normal visualized paranasal sinuses. Normal calvarium and skull base. Normal visualized soft tissue structures. Normal visualized upper cervical spine. MRI/Brain W/WO Contrast IMPRESSION: 1. Old lacunar infarct with cystic parenchymal loss is present in the posterior aspect of the left thalamic lobe and within the central aspect of the left caudate nucleus/basal ganglia. 2. Chronic ischemic and involutional changes of the brain, as described above. 3. No focal or suspicious parenchymal lesions of the brain. No abnormal enhancement of the brain parenchyma or meninges or dura. No visualized thickening of the meninges or dura. Electronically Signed: Escobar Caballero MD at 14:28 EDT ,
[2021-09-13 16:45] LABS: EGFR FINGERSTICK > 60.0000 mL/min (>60)
== END | disposition home or self-care (01) ==
LOC: MRI 16:09
PROVIDERS: PCP Family Medicine; Visit Provider Psychiatry & Neurology Neurology
DX: I69.398 Other sequelae of cerebral infarction (principal); G31.84 Mild cognitive impairment of uncertain or unknown etiology; R26.9 Unspecified abnormalities of gait and mobility; M54.2 Cervicalgia; Z98.1 Arthrodesis status
CPT/HCPCS: 70553; 72141; A9575

== ENCOUNTER → 2021-12-22 | Outpatient (CLI) | payer MEDICARE, BC, SELFPAY ==
[2021-12-22 15:20] LABS: Erythrocyte Sedimentation Rate 15 mm/hr (0-20)
[2021-12-22 15:49] LABS: Anion Gap 6 (5-15); BUN 11 mg/dL (7-18); BUN/Creat Ratio 8.2 RATIO (10-20); Chloride 97 mmol/L (98-107); Creatinine, Serum 1.34 mg/dL (0.70-1.30); EST Glomerular Filtration Rate 57 mL/min (>60); Est Glom Filt Rate - Afr Amer 69 mL/min (>60); Glucose 94 mg/dL (74-106); Potassium 3.7 mmol/L (3.5-5.1); Sodium Level 133 mmol/L (136-145)
[2021-12-24 13:15] LABS: ANTINUCLEAR ANTIBODIES DIRECT Negative (Negative)
[2021-12-30 15:07] LABS: Complement C3 152 mg/dL (82-167); Dilute Prothrombin Time (dPT) 39.8 sec (0.0-47.6); Dilute Russell Viper Venom 44.3 sec (0.0-47.0); PTT-LA 44.2 sec (0.0-51.9); Protein C Antigen 114 % (60-150); Protein S, Free 118 % (61-136); Thrombin Time 19.8 sec (0.0-23.0); Vitamin B1, Thiamine 113.9 nmol/L (66.5-200.0); dPT Confirm Ratio 1.11 Ratio (0.00-1.34)
[2021-12-31 18:10] LABS: Complement CH50 > 60 U/mL (>41); Protein C, Functional 137 % (73-180); Protein S, Funtional 107 % (63-140); Protein S, Total 120 % (60-150)
[2021-12-31 18:11] LABS: Anti-Cardiolipin Ab, IgA, Qn < 9 APL U/mL (0-11); Anti-Cardiolipin Ab, IgG, Qn < 9 GPL U/mL (0-14); Anti-Cardiolipin Ab, IgM, Qn < 9 MPL U/mL (0-12); Anti-Thrombin 3 AG, Immunol 114 % (72-124); Antithrombin 3 Function 106 % (75-135); Interpretation Comment: (.); Trileptal-Oxcarbazepine 7 ug/mL (10-35)
== END | disposition home or self-care (01) ==
PROVIDERS: PCP Family Medicine; Referring Provider Psychiatry & Neurology Neurology; Visit Provider Psychiatry & Neurology Neurology
DX: I67.9 Cerebrovascular disease, unspecified (principal); G31.84 Mild cognitive impairment of uncertain or unknown etiology; I10 Essential (primary) hypertension; F32.A Depression, unspecified
CPT/HCPCS: 36415; 80048; 81240; 81241; 82542; 84425; 84443; 85300; 85301; 85302; 85303; 85305; 85306; 85652; 86038; 86147; 86160; 86162; 86225; 86235

== ENCOUNTER → 2022-05-31 | Outpatient (CLI) | payer MEDICARE, BC, SELFPAY ==
[2022-05-31 18:59] LABS: AST(SGOT) 18 U/L (15-37); Alanine Aminotransfer ALT/SGPT 31 U/L (16-61); Alkaline Phosphatase 108 U/L (45-117); Anion Gap 8 (5-15); BUN 10 mg/dL (7-18); BUN/Creat Ratio 6.4 RATIO (10-20); Bilirubin, Direct 0.17 mg/dL (0.00-0.30); Calcium,Total 8.5 mg/dL (8.5-10.1); Chloride 102 mmol/L (98-107); Cholesterol 164 mg/dL (200); Creatinine, Serum 1.56 mg/dL (0.70-1.30); EST Glomerular Filtration Rate 48 mL/min (>60); Est Glom Filt Rate - Afr Amer 58 mL/min (>60); Globulin 3.6 g/dL (2.2-4.2); Glucose 96 mg/dL (74-106); High Density Lipoprotein 39 mg/dL; PSA,Total - Annual Screen 3.03 ng/mL (0.00-4.00); Protein, Total 6.6 g/dL (6.4-8.2); Sodium Level 137 mmol/L (136-145); Triglycerides 154 mg/dL; Very Low Density Lipoprotein 31 mg/dL (5-40)
== END | disposition home or self-care (01) ==
LOC: MTLAB 15:52
PROVIDERS: Psychiatry & Neurology Neurology; PCP Family Medicine; Referring Provider Family Medicine; Visit Provider Family Medicine
DX: N18.31 Chronic kidney disease, stage 3a (principal); I69.398 Other sequelae of cerebral infarction; E78.5 Hyperlipidemia, unspecified; R26.9 Unspecified abnormalities of gait and mobility; Z12.5 Encounter for screening for malignant neoplasm of prostate
CPT/HCPCS: 80048; 80061; 80076; 84153; G0103

== ENCOUNTER → 2022-07-14 | Outpatient (CLI) | payer MEDICARE, BC, SELFPAY ==
[2022-07-14 18:17] LABS: Hemoglobin A1c 5.7 % (3.8-5.6)
[2022-07-14 19:43] LABS: BUN 7 mg/dL (7-18); Creatinine, Serum 1.54 mg/dL (0.70-1.30); Glucose 90 mg/dL (74-106)
[2022-07-14 19:44] LABS: Anion Gap 6 (5-15); BUN/Creat Ratio 4.5 RATIO (10-20); Calcium,Total 8.7 mg/dL (8.5-10.1); Chloride 101 mmol/L (98-107); EST Glomerular Filtration Rate 48 mL/min (>60); Est Glom Filt Rate - Afr Amer 58 mL/min (>60); Potassium 4.5 mmol/L (3.5-5.1); Sodium Level 134 mmol/L (136-145)
== END | disposition home or self-care (01) ==
LOC: BFHLAB 15:17
PROVIDERS: PCP Family Medicine; Visit Provider Family Medicine
DX: R73.03 Prediabetes (principal); Z18.31 Retained animal quills or spines
CPT/HCPCS: 36415; 80048; 83036

== ENCOUNTER → 2022-11-30 | Outpatient (CLI) | payer MEDICARE, BC, SELFPAY ==
--- NOTE | 2022-11-30 15:44 | CT_ITS ---
INDICATION: SCREENING EXAMINATION: CT Low Dose CT Chest for Lung Cancer Screening TECHNIQUE: Helically acquired images were obtained of the chest with sagittal and coronal reconstructed images. Low-dose technique was utilized. Individualized dose optimization techniques were used for this CT. COMPARISON: None. FINDINGS: LUNGS, PLEURA AND LARGE AIRWAYS: No consolidation or edema. Right lower lobe calcified granuloma. No noncalcified pulmonary nodules. No pleural effusion. No pneumothorax. THYROID: Unremarkable. HEART AND PERICARDIUM: Coronary artery calcifications are present. No pericardial effusion. MEDIASTINUM AND LAMINE: No mediastinal or hilar adenopathy. Esophagus is unremarkable. No hiatal hernia. VESSELS: No thoracic aortic aneurysm. UPPER ABDOMEN: The visualized upper abdomen is unremarkable. BONES: No focal osseous abnormality. CT/Low Dose CT Lung Screening IMPRESSION: Right lower lobe calcified granuloma. No noncalcified pulmonary nodules. Lung-RADS Category 1 (negative, <1% chance of malignancy). Recommend continuing annual screening with low-dose CT. Electronically Signed: Charlie Jones DO at 3:31 EDT ,
== END | disposition home or self-care (01) ==
LOC: CT 15:43
PROVIDERS: PCP Family Medicine; Referring Provider Family Medicine; Visit Provider Family Medicine
DX: Z12.2 Encounter for screening for malignant neoplasm of respiratory organs (principal); F17.210 Nicotine dependence, cigarettes, uncomplicated
CPT/HCPCS: 71271

== ENCOUNTER → 2023-01-25 | Outpatient (CLI) | payer MEDICARE, BC, SELFPAY ==
[2023-01-25 17:38] LABS: Absolute Lymphocyte Count 1.97 X10^3/uL (0.83-4.51); Absolute Neutrophil Count 3.5 X10^3/uL (2.0-7.7); Basophil# 0.04 X10^3/uL; Basophil% 0.6 % (0-1); Eosinophil# 0.06 X10^3/uL; Hemoglobin 13.5 g/dL (13.0-16.5); Lymphocyte # 1.97 X10^3/ul (0.83-4.51); Lymphocyte % 31.9 % (19-41); Mean Corp Hgb Conc 32.1 g/dL (32-36); Mean Corpuscular Hgb 29.7 pg (27.0-32.0); Mean Corpuscular Volume 92.3 fL (80-94); Mean Platelet Vol. 10.7 fl (6.2-12.0); Monocyte% 9.7 % (0-10); NRBC Flagged by Analyzer 0 % (0-5); Neutrophil # 3.47 X10^3/uL (2.7-7.7); Neutrophil % 56.3 % (47-70); Platelet Count 271 K/mm3 (150-450); RBC Distribution Width CV 15.3 % (11.6-14.6); RBC Distribution Width SD 51.4 fl (35.1-43.9); Red Blood Count 4.55 M/mm3 (4.6-6.2); White Blood Count 6.2 K/mm3 (4.4-11.0)
[2023-01-25 18:04] LABS: ALB/GLOB Ratio 0.9 RATIO (0.9-2.4); AST(SGOT) 21 U/L (15-37); Alanine Aminotransfer ALT/SGPT 29 U/L (16-61); Albumin, Serum 3.2 g/dL (3.2-5.0); Alkaline Phosphatase 121 U/L (45-117); Anion Gap 5 (5-15); BUN 8 mg/dL (7-18); BUN/Creat Ratio 5.8 RATIO (10-20); Calcium,Total 8.5 mg/dL (8.5-10.1); Chloride 107 mmol/L (98-107); Cholesterol 140 mg/dL (200); Creatinine, Serum 1.38 mg/dL (0.70-1.30); EST Glomerular Filtration Rate 55 mL/min (>60); Est Glom Filt Rate - Afr Amer 66 mL/min (>60); Globulin 3.6 g/dL (2.2-4.2); Glucose 98 mg/dL (74-106); High Density Lipoprotein 50 mg/dL; Potassium 3.9 mmol/L (3.5-5.1); Protein, Total 6.8 g/dL (6.4-8.2); Sodium Level 138 mmol/L (136-145); Triglycerides 107 mg/dL; Very Low Density Lipoprotein 21 mg/dL (5-40)
[2023-01-25 18:09] LABS: Hemoglobin A1c 5.6 % (3.8-5.6)
== END | disposition home or self-care (01) ==
LOC: BFHLAB 14:32
PROVIDERS: PCP Family Medicine; Referring Provider Family Medicine; Visit Provider Family Medicine
DX: I25.10 Atherosclerotic heart disease of native coronary artery without angina pectoris (principal); N18.31 Chronic kidney disease, stage 3a; I12.9 Hypertensive chronic kidney disease with stage 1 through stage 4 chronic kidney disease, or unspecified chronic kidney disease; E78.5 Hyperlipidemia, unspecified; R73.03 Prediabetes
CPT/HCPCS: 36415; 80053; 80061; 83036; 85025

== ENCOUNTER → 2023-03-17 | Outpatient (CLI) | payer MEDICARE, BC, SELFPAY ==
--- NOTE | 2023-03-17 12:34 | CDU_ITS ---
Reason For Study: TIA 10/2022 w/right arm weakness Rt. Velocities/BP Lt. Velocities/BP Prox CCA 71.3/13.1 cm/sec. Prox CCA 131.3/23.6 cm/sec. Mid CCA 49.3/17.5 cm/sec. Mid CCA 89.3/21.7 cm/sec. Dist CCA 58.1/17.5 cm/sec. Dist CCA 62.9/27.3 cm/sec. Prox ICA 89.3/19.9 cm/sec. Prox ICA 64.1/16.9 cm/sec. Mid ICA 94.8/38.2 cm/sec. Mid ICA 87.5/29.9 cm/sec. Dist ICA 85.8/28.1 cm/sec. Dist ICA 62.0/23.2 cm/sec. Rt. ICA/CCA = 94.8/49.3=1.9. Lt. ICA/CCA = 87.5/89.3=1.0. Prox ECA 103.9/14.4 cm/sec. Prox ECA 92.0/12.2 cm/sec. Rt. Vert. 57.0/20.8 cm/sec. Lt. Vert. 54.4/15.7 cm/sec. Right Extracranial There is heterogeneous, smooth atherosclerotic plaque noted in the right common carotid artery. There is heterogeneous, irregular atherosclerotic plaque noted in the right internal carotid artery. There is homogeneous, smooth atherosclerotic plaque noted in the right external carotid artery. Antegrade flow is noted in the right vertebral artery. Left Extracranial There is homogeneous, smooth atherosclerotic plaque noted in the left common carotid artery. There is heterogeneous, smooth atherosclerotic plaque noted in the left internal carotid artery. There is intimal thickening but no significant atherosclerotic plaque noted in the left external carotid artery. Antegrade flow is noted in the left vertebral artery. Procedure Carotid Duplex [id number]. This is a Carotid Duplex examination using B-mode, color flow and specral Doppler. Exam performed in department. VL/Carotid Duplex Ultrasound Interpretation Summary Mild (<50%) stenosis right extracranial internal carotid. Mild (<50%) stenosis left extracranial internal carotid. Patent and antegrade vertebrals bilaterally. Ordering Physician: Isaac Gaytan Referring Physician: Eduardo Streeter Performed By: Tanisha Barros, ANAT, RVT
--- NOTE | 2023-03-17 12:34 | EKG12_ITS ---
Test Reason : Blood Pressure : / mmHG Vent. Rate : 087 BPM Atrial Rate : 087 BPM P-R Int : 170 ms QRS Dur : 084 ms QT Int : 352 ms P-R-T Axes : 049 016 073 degrees QTc Int : 423 ms Normal sinus rhythm Normal ECG Confirmed by KATHY DOVE, IRMA ([id number]), editor newspaper HELGA AYALA ([id number]) on 03/20/2023 8:21:38 AM Referred By: Isaac Gaytan Confirmed By:SHIRAZ CHAVEZ MD
== END | disposition home or self-care (01) ==
LOC: CVS 12:33
PROVIDERS: PCP Family Medicine; Referring Provider Psychiatry & Neurology Neurology; Visit Provider Psychiatry & Neurology Neurology
DX: I25.10 Atherosclerotic heart disease of native coronary artery without angina pectoris (principal); Z86.73 Personal history of transient ischemic attack (TIA), and cerebral infarction without residual deficits
CPT/HCPCS: 93005; 93880

== ENCOUNTER 2023-07-03 17:00 | Outpatient (RCR) | payer MEDICARE, BC, SELFPAY ==
--- NOTE | 2023-07-12 14:45 | SP.MBSS_ITS ---
Modified Barium Swallow Patient Information Study Date: 07/12/23 Study Time: 13:00 Direct Billable Minutes: 116 Total Minutes procedure & reportin Diagnosis: Dysphagia R13.10 Referring Physician: Isaac Gaytan Reason for Referral: Objectively assess swallow function, assess risk for aspiration, and determine recommendations for least restrictive diet textures and compensatory strategies to improve safety of swallow. Medical History: PMH: Dysphagia, CVA (left posterior limb internal capsule ischemic stroke in July 2020), MCI, HLD, Fatigue, CAD, COPD (See EMR for full PMH). The patient had moderate oropharyngeal dysphagia s/p CVA in July 2020. He did participate in OP and HH ST to address dysphagia, as well as dysarthria and cognitive impairment from his CVA. In the past 3 months, he has had worsening swallow functioning per his . She is concerned for choking. He will consume food/drinks with coughing episodes, turning bright red. She feels his swallowing difficulties are on both solids and liquids. He avoids regular textured meats and veggies. His cuts tougher meats/foods into bite sizes. Current Diet Ordered: Soft solids / Thin liquids Dentition: Edentulous Mental Status: Impaired (MCI) Respiratory Status: Oxygenating on Room Air Penetration-Aspiration Scale Penetration-Aspiration Scale: OBJECTIVE ASSESSMENT OF SWALLOW FUNCTION (QUANTITATIVE ? PER TRIAL): PENETRATION / ASPIRATION SCALE (DIAL): 1 = does not enter airway 2 = enters airway/above vocal folds/ejected 3 = enters airway/above vocal folds/not ejected 4 = enters airway/contacts vocal folds/ejected 5 = enters airway/contacts vocal folds/not ejected 6 = enters airway/below vocal folds/ejected 7 = enters airway/below vocal folds/not ejected despite effort 8 = enters airway/below vocal folds/no effort VIDEOFLOROSCOPIC SCALE SCORE (DIAL): Grade I = aspiration of material that has penetrated into the laryngeal vesti bule, intact cough reflex Grade II = aspiration < 10 % of the bolus, intact cough reflex Grade III = aspiration of < 10 % of the bolus, reduced cough reflex or aspiration of > 10 % of the bolus, intact cough reflex Grade IV = aspiration of > 10 % of the bolus, reduced cough reflex Penetration-Aspiration Scale Score Thin Liquid via teaspoon: Result: 1= does not enter airway Thin Liquid via teaspoon Trial 2: Result: 5= enters airways/contacts vocal folds/not ejected (trace) Thin Liquid via small single sip: cup: Result: 3= enters airways/above vocal folds/not ejected (trace) Konterra Thick Liquid via small single sip: cup: Result: 5= enters airways/contacts vocal folds/not ejected (trace) Pudding via teaspoon: Result: 1= does not enter airway 1/4 Cookie: Result: 1= does not enter airway Thin Liquid via small single sip: straw: Result: 1= does not enter airway Thin Liquid via large single sip: straw: Result: 2= enter airway/above vocal folds/ejected [place] Thick Liquid via small single sip: cup Trial 2: Result: 2= enter airway/above vocal folds/ejected Oral Phase Labial Seal: No Labial Escape Tongue Control During Bolus Hold: Posterior escape of greater than half of bolus Bolus Preparation/Mastication: Slow prolonged chewing/mashing with complete recollection Bolus Transport/Lingual Motion: Delayed initiation of tongue motion Oral Residue: Trace residue lining oral structures Pharyngeal Phase Initiation of Pharyngeal Swallow: Bolus head in pyriforms Soft Palate Elevation: Trace column of contrast/air between soft palate and phar yngeal wall Laryngeal Elevation: Partial superior movement thyroid cart/partial apprx aryt- epig petiole Anterior Hyoid Excursion: Partial anterior movement Epiglottic Movement: Partial inversion Laryngeal Vestibule Closure at Height of Swallow: Incomplete; narrow column of air/contrast in laryngeal vestibule Pharyngeal Stripping Wave: Present - diminished Pharyngoesophageal Segment Opening: Parital distension and partial duration; parital obstruction of flow Tongue Base Retraction: Wide column of contrast between tongue base & post. pharyngeal wall Pharyngeal Residue: Collection of residue within or on pharyngeal structures Esophageal Phase Esophageal Clearance: Esophageal retention w/ retrograde flow below pharyngoesophageal seg. Diagnosis/Impression Diagnosis: Moderate oropharyngeal dysphagia R13.12; Esophageal dysphagia R13.14 Impression: The oral phase is primarily marked by... -Decreased bolus control with >1/2 of the bolus spilling posteriorly to the pharynx prior to swallow onset observed with thin liquids especially. -Slowed, but complete mastication of 1/4 Evonne Doone cookie. The pharyngeal phase is primarily marked by... -Decreased airway closure during the swallow due to decreased anterior hyoid excursion, partial epiglottic inversion, and decreased laryngeal elevation. -Decreased tongue base retraction, UES opening/duration, and pharyngeal stripping wave with resulting mild-moderate pharyngeal residues after the swallow. Double swallow was most effective in clearing pharyngeal residue. -Aspiration of thin liquids by cup w/ cued double swallow with delayed, weak cough reflex. Deep laryngeal penetration with thin liquids via tsp and nectar thick liquids via cup, which did not reliably eject from the laryngeal vestibule after the swallow. Consuming sips via straw was most effective in decreasing laryngeal penetration. The esophageal phase is primarily marked by... -Esophageal retention of pudding in mid and lower esophagus, which somewhat cleared when provided thin liquid wash; however, retrograde flow of thin liquid wash was observed. Recommendations Diet: Mechanical Soft Textures (Easy to Chew textures - IDDSI Level 7 w/ meats prepared bite size) and Thin Liquids Compensatory Strategies: Small Bites, Small Sips, Slow Rate, Alternate bites/solids and sips/liquids, Sitting upright, Remain sitting upright for 30 minutes after PO intake and Assist with verbal cues to use recommended strategies ( to assist with verbal cues) Supervision: 1:1 Close Supervision Recommend Repeat Modified Barium Swallow: TBD (Repeat MBSS if concern for increased s/s of aspiration or worsening respiratory status) Need for Skilled Speech Therapy Services: Yes Comment: -Train the patient in use of strategies to decrease risk for aspiration and reflux aspiration. -Ongoing assessment of diet tolerance of recommended textures. -Train the patient oropharyngeal exercise program to improve bolus control, pharyngeal motility, and airway closure (lingual resistance, Eugenia, [place], CTAR). Recommended Referrals: GI Consult Education Completed: 1. Described result of evaluation., 4. Family/caregivers understand evaluation & agree w/ goals & tx plan., 6. Family/caregivers demonstrate recommended strategies. and 7. Pt requires further education on strategies & risks. Status Active ST Patient: Active Contact Information [facility]:: Roselyn Dietrich M.A. CCC-GEOMAGNETIST? Speech-Language Pathologist?? [facility] [address]?? [place] [address]?? [email or web address]?? [phone]?
== END 2023-07-03 19:00 | disposition home or self-care (01) ==
LOC: SP 17:00
PROVIDERS: PCP Family Medicine; Referring Provider Psychiatry & Neurology Neurology; Visit Provider Psychiatry & Neurology Neurology
DX: R13.10 Dysphagia, unspecified (principal); I69.322 Dysarthria following cerebral infarction
CPT/HCPCS: 92611

== ENCOUNTER → 2023-07-12 | Outpatient (CLI) | payer MEDICARE, BC, SELFPAY | END | disposition home or self-care (01) | LOC: RAD 12:49 | PROVIDERS: PCP Family Medicine; Referring Provider Psychiatry & Neurology Neurology; Visit Provider Psychiatry & Neurology Neurology | DX: R13.10 Dysphagia, unspecified (principal); I69.322 Dysarthria following cerebral infarction | CPT/HCPCS: 74230 ==

== ENCOUNTER → 2023-07-17 | Outpatient (CLI) | payer MEDICARE, BC, SELFPAY ==
[2023-07-17 18:11] LABS: Vitamin D,25 Hydroxy 35.6 ng/mL
[2023-07-17 18:12] LABS: Anion Gap 5 (5-15); BUN 10 mg/dL (7-18); BUN/Creat Ratio 7.1 RATIO (10-20); Calcium,Total 8.6 mg/dL (8.5-10.1); Chloride 107 mmol/L (98-107); EST Glomerular Filtration Rate 54 mL/min (>60); Est Glom Filt Rate - Afr Amer 65 mL/min (>60); Glucose 96 mg/dL (74-106); Sodium Level 140 mmol/L (136-145); T4 Free Direct 1.01 ng/dL (0.76-1.46); Thyroid Stim Hormone (TSH) 4.27 uIU/mL (0.358-3.74)
--- OUTSIDE RECORDS SUMMARY | 2023-07-17 21:22 | XMS RPT_ITS | CCD ---
Author Name Unknown Address [address] [place] [address] Organization [facility] Care Team Providers Care Journalist Name Role Phone TYRA GIGI Unavailable Unavailable Petrilla, Michele Unavailable Unavailable Petrilla, Michele Unavailable Unavailable TYRA, GIGI Unavailable Unavailable Petrilla, Michele Unavailable Unavailable Petrilla, Michele Unavailable Unavailable TYRA, GIGI Unavailable Unavailable Petrilla, Michele Unavailable Unavailable TYRA, GIGI HERNANDEZ Unavailable Unavail able PETRILLA, MICHELE F Unavailable Unavailable TYRA, GIGI MARY Unavailable Unavail able Petrilla, Michele F Primary Care Provider Syl DO, Brooks A Primary Care Provider Syl DO, Brooks A Primary Care Provider Syl DO, Brooks A Primary Care Provider LOW BROWN Referring Unavailable BROOKS STREETER A Primary Care Unavailable LOW BROWN Attending Unavailable BROOKS STREETER A Primary Care Unavailable LOW BROWN Attending Unavailable BROOKS STREETER A Primary Care Unavailable LOW BROWN Attending Unavailable SYLBROOKS A Primary Care Unavailable BROOKS STREETER A Primary Care Unavailable Allergies Allergy Classification Reported Allergen(s) Allergy Type Date of Onset Reaction(s) Facility (7 sources) Tolmetin; Translations: [TOLMETIN] Drug Allergy 09-23-2010 Unknown [facility] Repository Medications Current Medications Medication Drug Class(es) Dates Sig (Normalized) Sig (Original) 168 hr buprenorphine 0.01 mg/hr transdermal system (7 sources) Partial Opioid Agonist Start: 03-15-2021 End: 11-17-2022 apply 1 dose transdermal route every week buprenorphine (BUTRANS) 10 mcg/hour Indications: Postlaminectomy syndrome of cervical region , Cervical radicular pain , Spinal stenosis, lumbar region, without neurogenic claudication , Lumbosacral spondylosis without myelopathy Apply 1 Patch as directed one time a week for 84 days. 12 Patch 1 08/25/2022 11/17/2022 Active Completed/Discontinued Medications Medication Drug Class(es) Dates Sig (Normalized) Sig (Original) aspirin 81 mg chewable tablet (3 sources) Platelet Aggregation Inhibitor, Nonsteroidal Anti-inflammatory Drug Start: 08-05-2020 take 1 tablet by mouth once daily aspirin 81 mg chewable tablet 1 tablet by ORAL/FEEDING TUBE route once daily. 0 08/05/2020 Active Problems Active Problems Problem Classification Problem Date Documented Date Episodic/Chronic Anxiety disorders (3 sources) Mixed anxiety and depressive disorder; Translations: [Anxiety disorder, unspecified] Onset: 10-11-2020 10-13-2020 Chronic Disorders of lipid metabolism (3 sources) Hypercholesterolemia; Translations: [Pure hypercholesterolemia] Onset: 07-09-2015 Resolved: 01-25-2016 01-25-2016 Chronic Essential hypertension (4 sources) Essential hypertension; Translations: [Essential (primary) hypertension] Onset: 05-08-2010 10-09-2017 Chronic Hyperplasia of prostate (2 sources) Benign prostatic hyperplasia with lower urinary tract symptoms; Translations: [Benign prostatic hyperplasia] Onset: 03-12-2018 11-27-2014 Chronic Mood disorders (2 sources) Depressive disorder; Translations: [Major depressive disorder] 01-25-2016 Chronic Other aftercare (1 source) Patient encounter status; Translations: [Other fpc (current) drug therapy] Episodic Other diseases of bladder and urethra (2 sources) Other specified disorders of bladder; Translations: [Other specified disorders of bladder] Onset: 03-12-2018 Chronic Other diseases of kidney and ureters (1 source) Other obstructive and reflux uropathy; Translations: [Other obstructive and reflux uropathy] Onset: 03-12-2018 Episodic Other endocrine disorders (3 sources) Syndrome of inappropriate vasopressin secretion; Translations: [Syndrome of inappropriate secretion of antidiuretic hormone] Onset: 10-12-2020 10-14-2020 Chronic Other male genital disorders (1 source) Male erectile dysfunction, unspecified; Translations: [Male erectile dysfunction, unspecified] Onset: 03-12-2018 Chronic Other nervous system disorders (4 sources) Chronic postoperative pain; Translations: [Other chronic postprocedural pain] Onset: 07-07-2015 12-18-2017 Chronic Other nutritional; endocrine; and metabolic disorders (1 source) Cholesterol level - finding; Translations: [Low HDL (under 40)] 11-27-2014 Chronic Other nutritional; endocrine; and metabolic disorders (3 sources) Obese class I; Translations: [Obesity, unspecified] Onset: 08-04-2020 10-11-2020 Chronic Other screening for suspected conditions (not mental disorders or infectious disease) (1 source) Hypotestosteronism; Translations: [Hypotestosteronism] Onset: 11-05-2010 11-27-2014 Chronic Other screening for suspected conditions (not mental disorders or infectious disease) (1 source) Encounter for screening for malignant neoplasm of prostate; Translations: [Encounter for screening for malignant neoplasm of prostate] Onset: 03-12-2018 Episodic Residual codes; unclassified (3 sources) Restlessness and agitation; Translations: [Restlessness and agitation] Onset: 10-11-2020 10-13-2020 Chronic Residual codes; unclassified (1 source) H/O: Disorder; Translations: [History of ulcer disease] 11-27-2014 Episodic Respiratory failure; insufficiency; arrest (adult) (3 sources) Chronic respiratory failure; Translations: [Chronic respiratory failure with hypoxia] Onset: 08-04-2020 08-04-2020 Chronic Spondylosis; intervertebral disc disorders; other back problems (15 sources) Prolapsed cervical intervertebral disc; Translations: [Lumbosacral spondylosis without myelopathy] Onset: 04-10-2012 11-27-2014 Chronic Spondylosis; intervertebral disc disorders; other back problems (20 sources) Thoracic and lumbosacral neuritis; Translations: [Chronic low back pain] Onset: 04-10-2012 12-18-2017 Episodic Substance-related disorders (2 sources) Smoker; Translations: [Smoker] 11-27-2014 Chronic Unclassified (1 source) Unknown / UNK(Unknown) Onset: 03-12-2018 Past or Other Problems Problem Classification Problem Date Documented Date Episodic/Chronic Diseases of white blood cells (1 source) Granulomatous disorder; Translations: [Granulomatous lung disease] Onset: 05-08-2016 12-03-2017 Episodic Other aftercare (1 source) Other fpc (current) drug therapy; Translations: [Encounter for long-term (current) use of medications] Onset: 08-18-2022 Episodic Other and unspecified benign neoplasm (1 source) History of polyp of colon; Translations: [History of colonic polyps] Onset: 05-08-2010 01-25-2016 Episodic Results Test Name Value Interpretation Reference Range Facil ity Vital Signs Date Time Vital Sign Value Performing Clinician Lili chase 08-23-2021 15:03-0400 Body weight 99.79 kg Low Brown APRN.CNP Work Phone: [facility] 08-23-2021 15:03-0400 Heart rate 82 /min Low Brown APRN.CNP Work Phone: [facility] 08-23-2021 15:03-0400 SaO2% (BldA) [Mass fraction] 100 % Low Brown APRN.CNP Work Phone: [facility] Encounters Encounter Date Encounter Type Care Provider Facility Start: 05-04-2023 End: 05-04-2023 ambulatory LOW BROWN Facility:[facility] Start: 11-24-2022 End: 11-24-2022 [facility] Start: 08-25-2022 End: 08-25-2022 ambulatory [facility] Facility:[facility] Start: 08-25-2022 End: 08-25-2022 Patient encounter procedure Low Brown APRN.CNP Work Phone: Pain Management Plan of Treatment Date Care Activity Detail Author Start: 06-19-2028 Colon cancer screen colonoscopy Colon cancer screen colon[place] Start: 10-11-2025 LIPID SCREEN LIPID SCREEN [facility] Start: 06-19-2025 PROSTATE CANCER SCREENING DISCUSSION PROSTATE CANCER SCREENING DISCUSSION [facility] Start: 10-15-2023 DIABETES SCREEN DIABETES SCREEN [facility] Start: 12-22-2022 Lipid screen [place] Start: 08-23-2022 End: 10-23-2022 PAIN PANEL, UR QUANT PAIN PANEL, UR QUANT Lab Routine Encounter for long-term (current) use of medications Expected: 08/23/2022, Expires: 10/23/2022 [facility] Work Phone: Immunizations Immunization Date Immunization Notes Care Provider Josh snyder 08-05-2020 COVID-19 vaccine, ag e 12+ yr (PFIZER-BIONTECH - PURPLE TOP) Low Youngle FAMILY NURSE PRACTITIONER.SLIME PLANT OPERATOR Work Phone: [facility] 07-15-2020 COVID-19 vaccine, ag e 12+ yr (PFIZER-BIONTECH - PURPLE TOP) Low Brwon FAMILY NURSE PRACTITIONER.SLIME PLANT OPERATOR Work Phone: [facility] 03-10-2019 Influenza, injectabl e, Madin Marisol Canine Kidney, quadrivalent with preservative Low Froy FAMILY NURSE PRACTITIONER.SLIME PLANT OPERATOR Work Phone: [facility] 02-20-2018 influenza, injectabl e, quadrivalent, preservative free Lowalmas Brown FAMILY NURSE PRACTITIONER.SLIME PLANT OPERATOR Work Phone: [facility] 11-03-2016 pneumococcal polysaccharide vaccine, 23 valent [facility] 01-28-2014 zoster vaccine, live [facility] Payers Date Payer Category Payer Unknown [id number] 2018 Unknown CARMELITA MAE BS FEP PPO [id number] 2018-Present [phone] [address] [place] [address] PPO [id number] 2018 Unknown CARMELITA MAE BS FEP PPO [id number] 2018-Present [phone] [address] [place] [address] PPO [id number] 2014 Medicare MEDICARE MEDICAR E PART A AND B xxxxxxxxxxx 2014-Present [phone] [place] [address] xxxxxxxxxxx [id number] 2014 Unknown BCBS [place] P PO xxxxxxxxx 2014-Present [address] [place] [address] xxxxxxxxx [id number] 2010 Medicare MEDICARE MEDICAR E A AND B [id number] 2010-Present [phone] [address] [place] [id number] Medicare [id number] 2010 Medicare MEDICARE MEDICAR E A AND B [id number] 2010-Present [phone] [place] [address] Medicare [id number] 2010 Medicare [id number] 1955 Unknown [id number] 1955 Unknown [id number] 1955 Unknown [id number] Medicare [id number] Social History Date Type Detail Facility Start: 12-12-2018 [facility] End: 07-31-2020 History of tobacco use Cigarette Smoker Jacquie [facility] Start: 12-12-2018 End: 01-01-2021 Cigarettes smoked current (pack per day) - Reported [facility] Start: 12-12-2018 Alcohol intake No Jacquie [facility] Start: 12-12-2018 History SDOH Alcohol Frequency 1 [facility] Start: 12-12-2018 History SDOH Social Connections Phone 2 [place], [place] Start: 12-12-2018 History SDOH Social Connections Living 3 [place] Start: 12-12-2018 History SDOH Physica l Activity DPW 0 [place], [place] Start: 12-12-2018 History SDOH Financial 5 [place], [place] Start: 11-27-2014 Tobacco Comment [place] Start: 1955 Sex Assigned At Not on file [place] Start: 01-01-2021 Tobacco smoking stat us [facility] Ex-smoker [facility] End: 07-31-2020 History of tobacco use Current smoker [facility] Start: 01-01-2021 Tobacco use and exposure Smoke less tobacco non-user [facility] Start: 08-23-2021 Alcohol intake Current non-dr 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 Author Type: Nurse Practitioner Type: Progress Notes Filed: 05/05/2023 6:27 PM Note Text: Subjective Genaro Willams presents to [facility] for a follow up appointment. Since the last visit, Genaro Willams states the pain has been a little better recently. Current pain intensity is 4 on a scale of 0-10. Pain located in Back, neck, left hip, and right knee Pain described as aching. The patient denies numbness and tingling in his legs. Symptoms interfere with walking and standing. Pain is exacerbated by standing and walking. Pain is mitigated by medication, relaxation, distractions, and positioning. Review of Systems Constitutional: (-) Weight Gain (-) Weight Loss (+) Fatigue Cardiovascular: (-) hx heart surgery (-) Pacemaker Respiratory: (-) Shortness of Breath (-) Cough (-) Snoring Gastrointestinal: (-) Incontinence (-) Diarrhea (-) Constipation (-) Nausea/Vomiting Endocrine: (-) Thyroid Disorder (-) Diabetes Hematologic: (-) Prolonged Bleeding (-) Easy Bruising Genitourinary: (-) Incontinence (-) Frequency (-) Urinary Urgency Skin: (-) Open sores/wound Neurologic: (+) Headache (-) Double Vision Psychiatric: (-) Depression (-) Anxiety (-) Personal History of Alcohol or Substance Abuse (-) Family History of Alcohol or Substance Abuse Chief Complaint Patient presents with: Refill Request Back Pain Joint Pain Physical Examination There were no vitals taken for this visit. General:alert Skin: Skin color, texture, turgor normal, no rashes or lesions HEENT: normal Cardiovascular: Regular, rate and rhythm Lungs: Normal respiratory rate and rhythm, unlabored on room air Musculoskeletal: Neck: Tenderness over the cervical spine, Tenderness over the bilateral cervical facets, Tenderness over the bilateral cervical paraspinal muscles, neg facet loading Back: Tenderness on palpation over the lumbar spine. , Tenderness over the bilateral lumbar facets, Pain reproduced with flexion of the lumbar spine., Pain reproduced with extension of the lumbar spine. , Diffiuclty going from sitting to standing., pos facet loading Extremities: chronic left hip and right knee pain Neurological: Mental Status: alert Motor Strength: Motor strength and tone are 5/5 all throughout. Sensory: Not Examined Gait: Antalgic. Trigger points: paravertebral cervical muscles and lumbosacral spine muscles. Assessment Assessment : Patient presents for medication refills. He is accompanied with his Patient has chronic neck and back pain, denies radicular sxs He has chronic joint pain in the right knee and left hip Pain increased with the cold and rainy weather, pain with sitting in the chair for too long Pain is decreased with medication, laying down and sitting He takes Butran, flexeril and lyrica to help manage his chronic pain Encounter Diagnosis ICD-10-CM 1. Pain in joint, multiple sites M25.50 2. Postlaminectomy syndrome of cervical region M96.1 Pregabalin (LYRICA) 200 mg capsule buprenorphine (BUTRANS) 10 mcg/hour 3. Cervical radicular pain M54.12 Pregabalin (LYRICA) 200 mg capsule buprenorphine (BUTRANS) 10 mcg/hour 4. Spinal stenosis, lumbar region, without neurogenic claudication M48.061 Pregabalin (LYRICA) 200 mg capsule buprenorphine (BUTRANS) 10 mcg/hour 5. Lumbosacral spondylosis without myelopathy M47.817 Pregabalin (LYRICA) 200 mg capsule buprenorphine (BUTRANS) 10 mcg/hour PROMIS CAT Pain Interference 11/24/2022 PROMIS Pain Interference T-Score (range: 10 - 90) 72 (severe) PROMIS Pain Interference Percentile 1% PROMIS CAT Physical Function 11/24/2022 T-Score 25 (severe dysfunction) Percentile 1 Percentiles provide an indication of how a patient?s score ranks in relation to the [place] general population. > 31st percentile is within normal limits or better * < 31st percentile is at least ? SD worse than population, which may be clinically relevant < 16th percentile is at least 1 SD worse than population and warrants attention OARRS Report: Reviewed: The patient's OARRS report was reviewed and is consistent with the reported medication use. Urine Panel: Lab Results Component Value Date Cannabinoid Quant, Urine <16 08/19/2022 Cannabinoid Quant, Urine <16 04/10/2012 Benzoylecognine Quant, Urine <24 04/10/2012 Benzoylecgonine Quant, Urine <24 08/19/2022 6-Acetylmorphine Quant, Urine <5 08/19/2022 6-Acetylmorphine Quant, Urine <5 04/10/2012 Amphetamine Quant, Urine <5 08/19/2022 Amphetamine Quant, Urine <5 04/10/2012 Methamphetamine Quant, Urine <8 08/19/2022 Methamphetamine Quant, Urine <8 04/10/2012 Buprenorphine Quant, Urine <20 08/19/2022 Buprenorphine Quant, Urine 146 04/10/2012 Norbuprenorphine Quant, Urine <20 08/19/2022 Norbuprenorphine Quant, Urine 125 (more content not included)... [facility] 11-24-2022 Note HNO ID: [id number] Author: Low Brown, FAMILY NURSE PRACTITIONER.SLIME PLANT OPERATOR Service: ? Author Type: Nurse Practitioner Type: Progress Notes Filed: 11/26/2022 12:05 PM Note Text: SUBJECTIVE: Genaro Richard Willams presents to [facility] for a follow up appointment. Since the last visit, Genaro Willams states the pain has been a little bit better. Current pain intensity is 5 on a scale of 0-10. Since the last visit, Genaro Willams states the pain has been stable. Current pain intensity is 5 on a scale of 0-10. Pain located in Back, neck, left hip, and right knee Pain described as aching. The patient denies numbness and tingling in his legs. Symptoms interfere with walking and standing. Pain is exacerbated by standing and walking. Pain is mitigated by medication, relaxation, distractions, and positioning. The medications are partially effective. The patient states the last dose pregabalin was taken last night, the butrans patch was applied this morning, and flexeril was taken last night. REVIEW OF SYSTEMS: Constitutional: (-) Weight Gain (-) Weight Loss (+) Fatigue Cardiovascular: (-) hx heart surgery (-) Pacemaker Respiratory: (-) Shortness of Breath (-) Cough (-) Snoring Gastrointestinal: (-) Incontinence (-) Diarrhea (-) Constipation (-) Nausea/Vomiting Endocrine: (-) Thyroid Disorder (-) Diabetes Hematologic: (-) Prolonged Bleeding (-) Easy Bruising Genitourinary: (-) Incontinence (-) Frequency (-) Urinary Urgency Skin: (-) Open sores/wound Neurologic: (+) Headache (-) Double Vision Psychiatric: (-) Depression (-) Anxiety (-) Personal History of Alcohol or Substance Abuse (-) Family History of Alcohol or Substance Abuse CHIEF COMPLAINT:Patient presents with: Refill Request Back Pain OBJECTIVE: There were no vitals taken for this visit. PHYSICAL EXAMINATION: General appearance: Well appearing, in no acute distress, alert and oriented x3 Skin: Skin color, texture, turgor normal, no rashes or lesions Neck: Tenderness over the cervical paraspinous muscles. Intact ROM Cardiovascular: Regular, rate and rhythm Lungs: Normal respiratory rate and rhythm, Lungs clear to auscultation Back: Intact range of motion with pain reproduction. Facet:positive lumbar facet loading Spine: Reports Tenderness on palpation: Lumbar- axial Extremities: No deformities, edema, or skin discoloration. Good capillary refill. Musculoskeletal: Left hip tenderness and right knee tenderness, no edema , no extremity tenderness Neuro: No loss of sensation is noted. Motor skills intact Station and Gait: antalgic gait Motor: Exhibits full strength in all four extremities. Trigger points: paravertebral cervical muscles and lumbosacral spine muscles. ASSESSMENT: Assessment : Patient presents for injection refills. He is accompanied by his Patient has a chronic history of low back pain, denies radicular symptoms Patient has intermittent neck pain that radiates down the left upper extremity into the fingers. He reports his cervical surgery has helped decrease his pain in the neck Patient also has joint pain in the left hip and right knee Patient takes Flexeril, Lyrica and the Butrans patch to help manage his chronic pain Encounter Diagnosis ICD-10-CM 1. Postlaminectomy syndrome of cervical region M96.1 Pregabalin (LYRICA) 200 mg capsule buprenorphine (BUTRANS) 10 mcg/hour 2. Cervical radicular pain M54.12 Pregabalin (LYRICA) 200 mg capsule buprenorphine (BUTRANS) 10 mcg/hour 3. Spinal stenosis, lumbar region, without neurogenic claudication M48.061 Pregabalin (LYRICA) 200 mg capsule buprenorphine (BUTRANS) 10 mcg/hour 4. Lumbosacral spondylosis without myelopathy M47.817 Pregabalin (LYRICA) 200 mg capsule buprenorphine (BUTRANS) 10 mcg/hour PDMP website checked and validated. All prescriptions have been APPROPRIATELY filled. No suspicious activity was identified. 11/24/2022 by Low Brown APRN.SLIME PLANT OPERATOR Narcotic Agreement reviewed and signed?: N/A on November 24, 2022 Urine Panel: Lab Results Component Value Date Cannabinoid Quant, Urine <16 08/19/2022 Cannabinoid Quant, Urine <16 04/10/2012 Benzoylecognine Quant, Urine <24 04/10/2012 Benzoylecgonine Quant, Urine <24 08/19/2022 6-Acetylmorphine Quant, Urine <5 08/19/2022 6-Acetylmorphine Quant, Urine <5 04/10/2012 Amphetamine Quant, Urine <5 08/19/2022 Amphetamine Quant, Urine <5 04/10/2012 Methamphetamine Quant, Urine <8 08/19/2022 Methamphetamine Quant, Urine <8 04/10/2012 Buprenorphine Quant, Urine <20 08/19/2022 Buprenorphine Quant, Urine 146 04/10/2012 Norbuprenorphine Quant, Urine <20 08/19/2022 Norbuprenorphine Quant, Urine 125 04/10/2012 Methadone Quant, Urine <16 08/19/2022 Methadone Quant, Urine <16 04/10/2012 EDDP Quant, Urine <6 08/19/2022 EDDP Quant, Urine <6 04/10/2012 Tramadol Quant, Urine <25 08/19/2022 Tramadol Quant, (more content not included)... [facility] 08-25-2022 Note HNO ID: [id number] Author: Low Brown APRN.SLIME PLANT OPERATOR Service: ? Author Type: Nurse Practitioner Type: Progress Notes Filed: 08/26/2022 11:28 AM Note Text: SUBJECTIVE: Genaro Willams presents to [facility] for a follow up appointment Since the last visit, Genaro Willams states the pain has been stable. Current pain intensity is 5 on a scale of 0-10. Pain located in Back, Neck, and right knee Pain described as aching and stiff The patient Reports morning stiffness. Symptoms interfere with walking and standing. Pain is exacerbated by standing and walking. Pain is mitigated by sitting, lying down, and medications. The medications are partially effective. The patient states the last dose pregabalin was taken the morning, the butrans patch was applied this morning, and flexeril was taken last night. REVIEW OF SYSTEMS: Constitutional: (-) Weight Gain (-) Weight Loss (+) Fatigue Cardiovascular: (-) hx heart surgery (-) Pacemaker Respiratory: (-) Shortness of Breath (-) Cough (-) Snoring Gastrointestinal: (-) Incontinence (-) Diarrhea (-) Constipation (-) Nausea/Vomiting Endocrine: (-) Thyroid Disorder (-) Diabetes Hematologic: (-) Prolonged Bleeding (-) Easy Bruising Genitourinary: (-) Incontinence (-) Frequency (-) Urinary Urgency Skin: (-) Open sores/wound Neurologic: (+) Headache (-) Double Vision Psychiatric: (-) Depression (-) Anxiety (-) Personal History of Alcohol or Substance Abuse (-) Family History of Alcohol or Substance Abuse CHIEF COMPLAINT:Patient presents with: Pain Refill Request OBJECTIVE: There were no vitals taken for this visit. PHYSICAL EXAMINATION: General appearance: Well appearing, in no acute distress, alert and oriented x3 Skin: Skin color, texture, turgor normal, no rashes or lesions Neck: Tenderness to palpation over the cervical paraspinous muscles. ROM intact Cardiovascular: Regular, rate and rhythm Lungs: Normal respiratory rate and rhythm, Lungs clear to auscultation Back: Intact range of motion with pain reproduction. Spine: Reports Tenderness on palpation: lumbar spine- axial pain, facet tenderness Extremities: No deformities, edema, or skin discoloration. Good capillary refill. Musculoskeletal: chronic right knee pain Neuro: No loss of sensation is noted. Motor skills intact Station and Gait: antalgic gait Trigger points: paravertebral cervical muscles and lumbosacral spine muscles. ASSESSMENT: Assessment : Patient presents for medication refills. He is accompanied with his Patient has a history of chronic neck pain, denies radicular symptoms Patient has a chronic history of low back pain Patient has a history of chronic right knee pain with stiffness He reports that he fell today in the shower. He reports he does have grab bars in the shower Recently diagnosed with stage III kidney disease Patient takes Lyrica, Flexeril and uses the Butrans patch Encounter Diagnosis ICD-10-CM 1. Postlaminectomy syndrome of cervical region M96.1 Pregabalin (LYRICA) 200 mg capsule buprenorphine (BUTRANS) 10 mcg/hour 2. Cervical radicular pain M54.12 Pregabalin (LYRICA) 200 mg capsule buprenorphine (BUTRANS) 10 mcg/hour 3. Spinal stenosis, lumbar region, without neurogenic claudication M48.061 Pregabalin (LYRICA) 200 mg capsule buprenorphine (BUTRANS) 10 mcg/hour 4. Lumbosacral spondylosis without myelopathy M47.817 Pregabalin (LYRICA) 200 mg capsule buprenorphine (BUTRANS) 10 mcg/hour PDMP website checked and validated. All prescriptions have been APPROPRIATELY filled. No suspicious activity was identified. 08/25/2022 by Low Brown APRN.[employer] Narcotic Agreement reviewed and signed?: N/A on August 25, 2022 Urine Panel: Lab Results Component Value Date Cannabinoid Quant, Urine <16 08/19/2022 Cannabinoid Quant, Urine <16 04/10/2012 Benzoylecognine Quant, Urine <24 04/10/2012 Benzoylecgonine Quant, Urine <24 08/19/2022 6-Acetylmorphine Quant, Urine <5 08/19/2022 6-Acetylmorphine Quant, Urine <5 04/10/2012 Amphetamine Quant, Urine <5 08/19/2022 Amphetamine Quant, Urine <5 04/10/2012 Methamphetamine Quant, Urine <8 08/19/2022 Methamphetamine Quant, Urine <8 04/10/2012 Buprenorphine Quant, Urine <20 08/19/2022 Buprenorphine Quant, Urine 146 04/10/2012 Norbuprenorphine Quant, Urine <20 08/19/2022 Norbuprenorphine Quant, Urine 125 04/10/2012 Methadone Quant, Urine <16 08/19/2022 Methadone Quant, Urine <16 04/10/2012 EDDP Quant, Urine <6 08/19/2022 EDDP Quant, Urine <6 04/10/2012 Tramadol Quant, Urine <25 08/19/2022 Tramadol Quant, Urine <25 04/10/2012 Desmethyltramadol Quant, Urine <20 08/19/2022 Desmethyltramadol Quant, Urine <20 04/10/2012 Fentanyl Quant, Urine <6 08/19/2022 Fentanyl Quant, Urine <6 04/10/2012 Norfentanyl Quant, Urine <6 08/19/2022 Norfentanyl Quant, Urine <6 04/10/2012 Codeine Quant (more content not included)... [facility] 08-25-2022 History of Present illness Narrative SUBJECTIVE: Genaro Will[facility] for a follow up appointment Since the last visit, Genaro Willams states the pain has been stable. Current pain intensity is 5 on a scale of 0-10. Pain located in Back, Neck, and right knee Pain described as aching and stiff The patient Reports morning stiffness. Symptoms interfere with walking and standing. Pain is exacerbated by standing and walking. Pain is mitigated by sitting, lying down, and medications. The medications are partially effective. The patient states the last dose pregabalin was taken the morning, the butrans patch was applied this morning, and flexeril was taken last night. REVIEW OF SYSTEMS: Constitutional: (-) Weight Gain (-) Weight Loss (+) Fatigue Cardiovascular: (-) hx heart surgery (-) Pacemaker Respiratory: (-) Shortness of Breath (-) Cough (-) Snoring Gastrointestinal: (-) Incontinence (-) Diarrhea (-) Constipation (-) Nausea/Vomiting Endocrine: (-) Thyroid Disorder (-) Diabetes Hematologic: (-) Prolonged Bleeding (-) Easy Bruising Genitourinary: (-) Incontinence (-) Frequency (-) Urinary Urgency Skin: (-) Open sores/wound Neurologic: (+) Headache (-) Double Vision Psychiatric: (-) Depression (-) Anxiety (-) Personal History of Alcohol or Substance Abuse (-) Family History of Alcohol or Substance Abuse CHIEF COMPLAINT:Patient presents with: Pain Refill Request OBJECTIVE: There were no vitals taken for this visit. PHYSICAL EXAMINATION: General appearance: Well appearing, in no acute distress, alert and oriented x3 Skin: Skin color, texture, turgor normal, no rashes or lesions Neck: Tenderness to palpation over the cervical paraspinous muscles. ROM intact Cardiovascular: Regular, rate and rhythm Lungs: Normal respiratory rate and rhythm, Lungs clear to auscultation Back: Intact range of motion with pain reproduction. Spine: Reports Tenderness on palpation: lumbar spine- axial pain, facet tenderness Extremities: No deformities, edema, or skin discoloration. Good capillary refill. Musculoskeletal: chronic right knee pain Neuro: No loss of sensation is noted. Motor skills intact Station and Gait: antalgic gait Trigger points: paravertebral cervical muscles and lumbosacral spine muscles. ASSESSMENT: Assessment : Patient presents for medication refills. He is accompanied with his Patient has a history of chronic neck pain, denies radicular symptoms Patient has a chronic history of low back pain Patient has a history of chronic right knee pain with stiffness He reports that he fell today in the shower. He reports he does have grab bars in the shower Recently diagnosed with stage III kidney disease Patient takes Lyrica, Flexeril and uses the Butrans patch Encounter Diagnosis ICD-10-CM 1. Postlaminectomy syndrome of cervical region M96.1 Pregabalin (LYRICA) 200 mg capsule buprenorphine (BUTRANS) 10 mcg/hour 2. Cervical radicular pain M54.12 Pregabalin (LYRICA) 200 mg capsule buprenorphine (BUTRANS) 10 mcg/hour 3. Spinal stenosis, lumbar region, without neurogenic claudication M48.061 Pregabalin (LYRICA) 200 mg capsule buprenorphine (BUTRANS) 10 mcg/hour 4. Lumbosacral spondylosis without myelopathy M47.817 Pregabalin (LYRICA) 200 mg capsule buprenorphine (BUTRANS) 10 mcg/hour PDMP website checked and validated. All prescriptions have been APPROPRIATELY filled. No suspicious activity was identified. 08/25/2022 by Low Brown APRN.[employer] Narcotic Agreement reviewed and signed?: N/A on August 25, 2022 Urine Panel: Lab Results Component Value Date Cannabinoid Quant, Urine <16 08/19/2022 Cannabinoid Quant, Urine <16 04/10/2012 Benzoylecognine Quant, Urine <24 04/10/2012 Benzoylecgonine Quant, Urine <24 08/19/2022 6-Acetylmorphine Quant, Urine <5 08/19/2022 6-Acetylmorphine Quant, Urine <5 04/10/2012 Amphetamine Quant, Urine <5 08/19/2022 Amphetamine Quant, Urine <5 04/10/2012 Methamphetamine Quant, Urine <8 08/19/2022 Methamphetamine Quant, Urine <8 04/10/2012 Buprenorphine Quant, Urine <20 08/19/2022 Buprenorphine Quant, Urine 146 04/10/2012 Norbuprenorphine Quant, Urine <20 08/19/2022 Norbuprenorphine Quant, Urine 125 04/10/2012 Methadone Quant, Urine <16 08/19/2022 Methadone Quant, Urine <16 04/10/2012 EDDP Quant, Urine <6 08/19/2022 EDDP Quant, Urine <6 04/10/2012 Tramadol Quant, Urine <25 08/19/2022 Tramadol Quant, Urine <25 04/10/2012 Desmethyltramadol Quant, Urine <20 08/19/2022 Desmethyltramadol Quant, Urine <20 04/10/2012 Fentanyl Quant, Urine <6 08/19/2022 Fentanyl Quant, Urine <6 04/10/2012 Norfentanyl Quant, Urine <6 08/19/2022 Norfentanyl Quant, Urine <6 04/10/2012 Codeine Quant, Urine <11 08/19/2022 Codeine Quant, Urine <11 04/10/2012 Morphine Quant, Urine <10 08/19/2022 Morphine Quant, Urine <5 04/10/2012 Dihydrocodeine Quant, Urine <5 08/19/2022 Dihydrocodeine Quant, Urine <5 04/10/2012 Hydrocodone Quant, Urine <8 08/19/2022 Hydrocodone Quant, Urine <8 04/10/2012 Oxycodone Quant, Urine <10 08/19/2022 Oxycodone Quant, Urine <5 04/10/2012 Hydromorphone Quant, Urine <5 08/19/2022 Hydromorphone Quant, Urine <5 04/10/2012 Oxymorphone Quant, Urine <5 08/19/2022 Oxymorphone Quant, Urine <5 04/10/2012 Creatinine,Ur Pain Senior 20-50 04/10/2012 Urine pH, Pain Senior 4-10 04/10/2012 Specific [place],Ur Pain Senior 1.005-1.020 04/10/2012 Oxidants,Ur Negative 04/10/2012 Specimen Quality, Ur Pain Senior Specimen quality results within acceptable limits. 04/10/2012 The pain panel was Obtained. PLAN: Injection history was reviewed. Medication use and compliance were reviewed. 1. Continue medication management through the [facility] 2. The following approved medication requests have been transmitted electronically. Requested Prescriptions Signed Prescriptions Disp Refills cyclobenzaprine (FLEXERIL) 10 mg tablet 270 tablet 1 Sig: Take 1 tablet by mouth three times daily as needed. Pregabalin (LYRICA) 200 mg capsule 180 capsule 1 Sig: Take 1 capsule by mouth twice daily for 90 days. buprenorphine (BUTRANS) 10 mcg/hour 12 Patch 1 Sig: Apply 1 Patch as directed one time a week for 84 days. Low Brown APRN.[employer] 3. Interventional procedure options discussed. none 4. Encouraged regular home exercise program. 5) F/U in 3 months I spent a total of 20 minutes on the date of the service which included preparing to see the patient, [id number] patient care, completing clinical documentation, performing a medically appropriate examination, and ordering medications, tests, or procedures. The above plan and management options were discussed at length with patient. Patient is in agreement with the above and verbalized understanding. Low Brown APRN, [employer] August 25, 2022 documented in this encounter [facility] 02-22-2022 History of Present illness Narrative SUBJECTIVE: Genaro Willams presents to [facility] for a follow up appointment for knee pain. Since the last visit, Genaro Willams states the pain has been worse. Current pain intensity is 5 on a scale of 0-10. Pain located in right leg area and right knee. Pain described as grinding pain. The patient Denies numbness and tingling. Symptoms interfere with physical activity. Pain is exacerbated by weight bearing, physical activity, and stairs. Pain is mitigated by resting. The medications are partially effective. The patient states the last dose of Butrans patch was applied this morning, Lyrica was taken this morning, and flexeril was taken last night. REVIEW OF SYSTEMS: Constitutional: (-) Weight Gain (-) Weight Loss (+) Fatigue Cardiovascular: (-) hx heart surgery (-) Pacemaker Respiratory: (-) Shortness of Breath (-) Cough (+) Snoring Gastrointestinal: (-) Incontinence (-) Diarrhea (-) Constipation (-) Nausea/Vomiting Endocrine: (-) Thyroid Disorder (-) Diabetes Hematologic: (-) Prolonged Bleeding (-) Easy Bruising Genitourinary: (-) Incontinence (-) Frequency (-) Urinary Urgency Skin: (-) Open sores/wound Neurologic: (+) Headache (-) Double Vision Psychiatric: (-) Depression (-) Anxiety (-) Personal History of Alcohol or Substance Abuse (-) Family History of Alcohol or Substance Abuse CHIEF COMPLAINT:Patient presents with: Pain Refill Request OBJECTIVE: There were no vitals taken for this visit. PHYSICAL EXAMINATION: General appearance: Well appearing, in no acute distress, alert and oriented x3 Skin: Skin color, texture, turgor normal, no rashes or lesions Neck: Tenderness to palpation over the cervical paraspinous muscles. Intact ROM Cardiovascular: Regular, rate and rhythm Lungs: Normal respiratory rate and rhythm, Lungs clear to auscultation Back: Intact range of motion with pain reproduction. Spine: Reports Tenderness on palpation: Lumbar- axial and right paraspinals Extremities: No deformities, edema, or skin discoloration. Good capillary refill. Musculoskeletal: No Joint pain, no edema , no extremity tenderness Neuro: No loss of sensation is noted. Motor skills intact Station and Gait: antalgic gait Motor: Exhibits full strength in all four extremities. Trigger points: paravertebral cervical muscles and lumbosacral spine muscles. ASSESSMENT: Assessment : Patient presents for follow-up visit. He is accompanied by his Patient has a history of chronic neck pain, denies radicular symptoms. He does have intermittent numbness in the left hand Patient has a history of chronic lower back pain that radiates down the right lower extremity to the right knee He takes the Butrans patch, Flexeril, and Lyrica to help manage his chronic pain Discussed talk screen and pain panel before next visit Encounter Diagnosis ICD-10-CM 1. Encounter for long-term (current) use of medications Z79.899 PAIN PANEL, UR QUANT TOX SCREEN ROUT UR 2. Postlaminectomy syndrome of cervical region M96.1 Pregabalin (LYRICA) 200 mg capsule buprenorphine (BUTRANS) 10 mcg/hour 3. Cervical radicular pain M54.12 Pregabalin (LYRICA) 200 mg capsule buprenorphine (BUTRANS) 10 mcg/hour 4. Spinal stenosis, lumbar region, without neurogenic claudication M48.061 Pregabalin (LYRICA) 200 mg capsule buprenorphine (BUTRANS) 10 mcg/hour 5. Lumbosacral spondylosis without myelopathy M47.817 Pregabalin (LYRICA) 200 mg capsule buprenorphine (BUTRANS) 10 mcg/hour PDMP website checked and validated. All prescriptions have been APPROPRIATELY filled. No suspicious activity was identified. 02/22/2022 by Low Brown APRN.[facility] Narcotic Agreement reviewed and signed?: N/A on February 22, 2022 Urine Panel: Lab Results Component Value Date Cannabinoid Quant, Urine <16 04/10/2012 Benzoylecognine Quant, Urine <24 04/10/2012 6-Acetylmorphine Quant, Urine <5 04/10/2012 Amphetamine Quant, Urine <5 04/10/2012 Methamphetamine Quant, Urine <8 04/10/2012 Buprenorphine Quant, Urine 146 04/10/2012 Norbuprenorphine Quant, Urine 125 04/10/2012 Methadone Quant, Urine <16 04/10/2012 EDDP Quant, Urine <6 04/10/2012 Tramadol Quant, Urine <25 04/10/2012 Desmethyltramadol Quant, Urine <20 04/10/2012 Fentanyl Quant, Urine <6 04/10/2012 Norfentanyl Quant, Urine <6 04/10/2012 Codeine Quant, Urine <11 04/10/2012 Morphine Quant, Urine <5 04/10/2012 Dihydrocodeine Quant, Urine <5 04/10/2012 Hydrocodone Quant, Urine <8 04/10/2012 Oxycodone Quant, Urine <5 04/10/2012 Hydromorphone Quant, Urine <5 04/10/2012 Oxymorphone Quant, Urine <5 04/10/2012 Creatinine,Ur Pain Senior 20-50 04/10/2012 Urine pH, Pain Senior 4-10 04/10/2012 Specific [place],Ur Pain Senior 1.005-1.020 04/10/2012 Oxidants,Ur Negative 04/10/2012 Specimen Quality, Ur Pain Senior Specimen quality results within acceptable limits. 04/10/2012 The pain panel was Ordered. PLAN: Injection history was reviewed. Medication use and compliance were reviewed. 1. Continue medication management through the [facility] 2. The following approved medication requests have been transmitted electronically. Requested Prescriptions Signed Prescriptions Disp Refills cyclobenzaprine (FLEXERIL) 10 mg tablet 270 tablet 1 Sig: Take 1 tablet by mouth three times daily as needed. Pregabalin (LYRICA) 200 mg capsule 180 capsule 1 Sig: Take 1 capsule by mouth twice daily for 90 days. buprenorphine (BUTRANS) 10 mcg/hour 12 Patch 1 Sig: Apply 1 Patch as directed one time a week for 84 days. 3. Interventional procedure options discussed. none 4. Encouraged regular home exercise program. 5. Ordered pain panel and tox screen 6) F/U in 3 months. I spent a total of 30 minutes on the date of the service which included preparing to see the patient, [id number] patient care, completing clinical documentation, performing a medically appropriate examination, and ordering medications, tests, or procedures. The above plan and management options were discussed at length with patient. Patient is in agreement with the above and verbalized understanding. Low Brown APRN, [employer] February 22, 2022 documented in this encounter [facility] 08-23-2021 History of Present illness Narrative SUBJECTIVE: Genaro Willams presents to [facility] for a follow up appointment for right knee. Since the last visit, Genaro Willams states the pain has been sore. Current pain intensity is 6 on a scale of 0-10. Pain located in Right leg area and radiates down the posterior leg. Pain described as soreness . Symptoms interfere with care movement Pain is exacerbated by physical activity, stairs Pain is mitigated by sitting yes injection has help Buprenorphine patch helps. The medications are effective. pregabalin 200 mg dose Today at 1100 REVIEW OF SYSTEMS: Constitutional: (+) Weight Gain (-) Weight Loss (+) Fatigue Cardiovascular: (-) hx heart surgery (-) Pacemaker Respiratory: (+) Shortness of Breath (-) Cough (-) Snoring Gastrointestinal: (-) Incontinence (-) Diarrhea (-) Constipation (-) Nausea/Vomiting Endocrine: (-) Thyroid Disorder (-) Diabetes Hematologic: (-) Prolonged Bleeding (-) Easy Bruising Genitourinary: (-) Incontinence (-) Frequency (-) Urinary Urgency Skin: (-) Open sores/wound Neurologic: (+) Headache (-) Double Vision Psychiatric: (-) Depression (-) Anxiety (-) Personal History of Alcohol or Substance Abuse (-) Family History of Alcohol or Substance Abuse CHIEF COMPLAINT:Patient presents with: Follow Up OBJECTIVE: Pulse 82 Wt 220 lb (99.8kg) SpO2 100% PHYSICAL EXAMINATION: General appearance: Well appearing, in no acute distress, alert and oriented x3 Skin: Skin color, texture, turgor normal, no rashes or lesions Neck: Tenderness to palpation over the cervical paraspinous muscles. No pain with neck flexion, extension, or lateral flexion Cardiovascular: Regular, rate and rhythm Lungs: Normal respiratory rate and rhythm, Lungs clear to auscultation Back: Intact range of motion with pain reproduction. . Spine: Reports Tenderness on palpation: Lumbar-right paraspinals Extremities: No deformities, edema, or skin discoloration. Good capillary refill. Musculoskeletal: Chronic right knee tenderness Neuro: No loss of sensation is noted. Motor skills intact Station and Gait: antalgic gait Motor: Exhibits full strength in all four extremities. ASSESSMENT: Assessment : Patient presents for medication refills. He is accompanied by his Patient has a history of chronic neck and back pain Patient reports that his pain is radiating down the lateral side of the right leg Patient reports right knee pain Patient reports that he has not been experiencing numbness, tingling and burning in the hands lately Patient uses the Butrans patch, Lyrica, and Flexeril to help manage his chronic pain and neuropathy Encounter Diagnosis ICD-10-CM 1. Postlaminectomy syndrome of cervical region M96.1 buprenorphine (BUTRANS) 10 mcg/hour Pregabalin (LYRICA) 200 mg capsule 2. Cervical radicular pain M54.12 buprenorphine (BUTRANS) 10 mcg/hour Pregabalin (LYRICA) 200 mg capsule 3. Spinal stenosis, lumbar region, without neurogenic claudication M48.061 buprenorphine (BUTRANS) 10 mcg/hour Pregabalin (LYRICA) 200 mg capsule 4. Lumbosacral spondylosis without myelopathy M47.817 buprenorphine (BUTRANS) 10 mcg/hour Pregabalin (LYRICA) 200 mg capsule PDMP website checked and validated. All prescriptions have been APPROPRIATELY filled. No suspicious activity was identified. 08/23/2021 by Low Brown APRN.[employer] Narcotic Agreement reviewed and signed?: N/A on August 23, 2021 Urine Panel: Lab Results Component Value Date Cannabinoid Quant, Urine <16 04/10/2012 Benzoylecognine Quant, Urine <24 04/10/2012 6-Acetylmorphine Quant, Urine <5 04/10/2012 Amphetamine Quant, Urine <5 04/10/2012 Methamphetamine Quant, Urine <8 04/10/2012 Buprenorphine Quant, Urine 146 04/10/2012 Norbuprenorphine Quant, Urine 125 04/10/2012 Methadone Quant, Urine <16 04/10/2012 EDDP Quant, Urine <6 04/10/2012 Tramadol Quant, Urine <25 04/10/2012 Desmethyltramadol Quant, Urine <20 04/10/2012 Fentanyl Quant, Urine <6 04/10/2012 Norfentanyl Quant, Urine <6 04/10/2012 Codeine Quant, Urine <11 04/10/2012 Morphine Quant, Urine <5 04/10/2012 Dihydrocodeine Quant, Urine <5 04/10/2012 Hydrocodone Quant, Urine <8 04/10/2012 Oxycodone Quant, Urine <5 04/10/2012 Hydromorphone Quant, Urine <5 04/10/2012 Oxymorphone Quant, Urine <5 04/10/2012 Creatinine,Ur Pain Senior 20-50 04/10/2012 Urine pH, Pain Senior 4-10 04/10/2012 Specific [place],Ur Pain Senior 1.005-1.020 04/10/2012 Oxidants,Ur Negative 04/10/2012 Specimen Quality, Ur Pain Senior Specimen quality results within acceptable limits. 04/10/2012 The pain panel was N/A PLAN: Injection history was reviewed. Medication use and compliance were reviewed. 1. Continue medication management through the [facility] 2. Signed Prescriptions Disp Refills buprenorphine (BUTRANS) 10 mcg/hour 12 Patch 1 Sig: Apply 1 Patch as directed one time a week for 84 days. MIGUEL Class: C-III JASMINA: No Pregabalin (LYRICA) 200 mg capsule 180 capsule 1 Sig: Take 1 capsule by mouth twice daily for 90 days. MIGUEL Class: C-V JASMINA: No cyclobenzaprine (FLEXERIL) 10 mg tablet 270 tablet 1 Sig: Take 1 tablet by mouth three times daily as needed. JASMINA: No 3. Interventional procedure options discussed. none 4. Encouraged regular home exercise program. 5. Will need a pain panel next OV 5) F/U in 6 months. May be virtual I spent a total of 20 minutes on the date of the service which included preparing to see the patient, [id number] patient care, completing clinical documentation, performing a medically appropriate examination and ordering medications, tests, or procedures. The above plan and management options were discussed at length with patient. Patient is in agreement with the above and verbalized understanding. Low Brown APRN, ASHWINI August 23, 2021 documented in this encounter [facility] 10-14-2020 Note HNO ID: [id number] Author: Manas White MD Service: Hospital Medicine Author Type: Physician Type: Progress Notes Filed: 10/14/2020 8:57 AM Note Text: DEPARTMENT OF HOSPITAL MEDICINE PROGRESS NOTE Date: 10/13/20 Chief Concern: Follow-up on periodic aggressive behavior HPI: No new symptoms Exam: BP 121/61 Pulse 66 Temp 36.4 ?C (97.6 ?F) (Temporal) Resp 16 Wt 85.6 kg (188 lb 11.4 oz) SpO2 97% BMI 29.56 kg/m? Physical Exam Constitutional: General: He is not in acute distress. Appearance: He is not diaphoretic. HENT: Head: Normocephalic. Cardiovascular: Rate and Rhythm: Normal rate. Pulmonary: Effort: Pulmonary effort is normal. Abdominal: General: There is no distension. Palpations: Abdomen is soft. Skin: General: Skin is warm. Neurological: Mental Status: He is alert. DATA: Diagnostic tests reviewed: Most recent labs and imaging Assessment: Mr. 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 You presented to the hospital with increasing agitation and argument with with concern of her safety. [place] slipped in ED temporarily. Neuro and metabolic workup without new finding or medical pathology to explain behavior change. After talking with patient and daughter who is a Urologist, will trial increased effexor and an am dose of seroquel. Awaiting formal psych eval: If has capacity: patient does not want to go anywhere else but home at this point. No STR/SNF or transfer inpt to inpt to [facility] for psychiatrist med eval. Patient does not want voluntary transfer or inpt psych somewhere and he is not voicing thoughts/actions at current time that would prompt involuntary admission. Family would have to arrange different living situation with social work's help. If doesn't have capacity: dispo dependent not on patient but formal guardianship. Updated daughter at 840 am after permission obtained from patient. SIADH stable with fluid restriction Status of medical issues: Active Hospital Problems Diagnosis Date Noted - SIADH (syndrome of inappropriate ADH production) ([facility]) 10/12/2020 Assessment AND Plan Note: Likely from psychiatric meds. Continue fluid restriction - Agitation 10/11/2020 Assessment AND Plan Note: Continue same psych meds but trial am dose of seroquel and increased dose of effexor to 100 mg. - Anxiety and depression 10/11/2020 Assessment AND Plan Note: stable - Obesity, Class I, BMI 30-34.9 08/04/2020 Leg blood clot prevention: SCD SIGNATURE: Manas White MD If you have any concerns regarding your visit note today, feel free to reach out to me via [facility] [facility] Note HNO ID: [id number] Author: Manas Whiet MD Service: Hospital Medicine Author Type: Physician Type: Progress Notes Filed: 10/13/2020 8:44 AM Note Text: DEPARTMENT OF HOSPITAL MEDICINE PROGRESS NOTE Date: 10/13/20 Chief Concern: Follow-up on aggressive behavior HPI: No new symptoms Exam: BP 147/65 Pulse 68 Temp 36.4 ?C (97.5 ?F) (Temporal) Resp 18 Wt 85.6 kg (188 lb 11.4 oz) SpO2 93% BMI 29.56 kg/m? Physical Exam Constitutional: General: He is not in acute distress. Appearance: He is not diaphoretic. HENT: Head: Normocephalic. Cardiovascular: Rate and Rhythm: Normal rate. Pulmonary: Effort: Pulmonary effort is normal. Abdominal: General: There is no distension. Palpations: Abdomen is soft. Skin: General: Skin is warm. Neurological: Mental Status: He is alert. Psychiatric: Comments: Not friendly DATA: Diagnostic tests reviewed: Most recent labs and imaging Assessment: Mr. 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 You presented to the hospital with increasing agitation and argument with with concern of her safety. Chandni slipped in ED temporarily. Neuro and metabolic workup without new finding or medical pathology to explain behavior change. After talking with daughter who is a Urologist, will trial increased effexor and an am dose of seroquel. Awaiting psych capacity eval. If has capacity, options include setting up for alternative living arrangement where he doesn't live with or perhaps transfer to [facility] for psychiatry medication assessment. If doesn't have capacity, options to also include transfer to [facility] for med titration. Updated daughter at 830 am after permission obtained from patient. SIADH improved with fluid restriction Status of medical issues: Active Hospital Problems Diagnosis Date Noted - SIADH (syndrome of inappropriate ADH production) ([facility]) 10/12/2020 Assessment AND Plan Note: Likely from psychiatric meds. Continue fluid restriction - Agitation 10/11/2020 Assessment AND Plan Note: Continue same psych meds but trial am dose of seroquel and increased dose of effexor to 100 mg. - Anxiety and depression 10/11/2020 Assessment AND Plan Note: stable - Obesity, Class I, BMI 30-34.9 08/04/2020 Leg blood clot prevention: SCD SIGNATURE: Manas White MD If you have any concerns regarding your visit note today, feel free to reach out to me via [facility] 10-12-2020 Note HNO ID: [id number] Author: Dolores Fermin APRN.[employer] Service: Hospital Medicine Author Type: Nurse Practitioner Type: Progress Notes Filed: 10/12/2020 8:48 PM Note Text: DEPARTMENT OF [facility] MEDICINE PROGRESS NOTE SERVICE DATE: 10/12/2020 SERVICE TIME: 7:13 PM Hospital Medicine/Primary Attending: Dany Bella MD NIGHT AND WEEKEND COVERAGE: ELROY COVERAGE: Days: [phone], please page attending physician. Nights: [phone], please page [place] Hospitalist Night coverage pager [phone]. Subjective INTERVAL HPI: Sitter at bedside, no events overnight. States he is tired and nothing is wrong with me . Asking about discharge. Would not open eyes for assessment. Denies any specific complaints. Na down to 128, slightly worse after IVF. Nephro and Psych to evaluate. Current Facility-Administered Medications Medication Dose Route Frequency - carvedilol 25 mg tab(s) (COREG) 25 mg ORAL BID w MEALS - OXcarbazepine 150 mg tab(s) (TRILEPTAL) 150 mg ORAL BID - pregabalin 200 mg cap(s) (LYRICA) 200 mg ORAL BID - atorvastatin 80 mg tab(s) (LIPITOR) 80 mg ORAL DAILY - lisinopril 10 mg tab(s) (ZESTRIL, PRINIVIL) 10 mg ORAL DAILY - tamsulosin 0.8 mg cap(s) (FLOMAX) 0.8 mg ORAL DAILY - omega-3 acid ethyl esters 1 g cap(s) (LOVAZA) 1 capsule ORAL BID - [START ON 10/14/2020] buprenorphine 10 mcg/hour 1 Patch (BUTRANS) 1 Patch TRANSDERMAL q WED - melatonin 3 mg tab(s) 3 mg ORAL HS PRN - aspirin 81 mg chewable tab(s) 81 mg ORAL/FEEDING TUBE DAILY - pantoprazole DR 40 mg tab(s) (PROTONIX) 40 mg ORAL DAILY (6 AM) - cyclobenzaprine 10 mg tab(s) (FLEXERIL) 10 mg ORAL TID PRN - sodium chloride 0.9 % (flush) 3-5 mL (BD POSIFLUSH) 3-5 mL INTRAVENOUS q 12 H - sodium chloride 0.9 % (flush) 2-10 mL (BD POSIFLUSH) 2-10 mL INTRAVENOUS q 12 H - acetaminophen 650 mg tab(s) (TYLENOL) 650 mg ORAL/FEEDING TUBE q 4 H PRN - ondansetron (PF) 4 mg injection (ZOFRAN) 4 mg INTRAVENOUS q 6 H PRN - QUEtiapine 50 mg tab(s) (SEROquel) 50 mg ORAL DAILY - venlafaxine 75 mg tab(s) (EFFEXOR) 75 mg ORAL DAILY - heparin 5,000 Units injection 5,000 Units SUBCUTANEOUS q 12 H - haloperidol lactate 2 mg short-acting injection (HALDOL) 2 mg INTRAVENOUS q 6 H PRN Objective PHYSICAL EXAM: BP 128/66 Pulse 78 Temp (Src) 98 (Oral) Resp 18 Wt 191 lb 9.3 oz (86.9kg) SpO2 97% O2 Therapy: Room Air Physical Exam Performed: GENERAL: Tired and in no acute distress HEART: RRR, no murmur, gallop or rub, normal, S1, S2 LUNGS: Clear throughout ABDOMEN: Soft, nontender, non-distended bowel sounds present x4 EXTREMITY: Normal exam of the extremities. No clubbing, cyanosis, or edema. NEURO: Moves all extremities, face symmetric, speech clear.. Mild facial drop. PULSES: 2+ radial Lines, Drains, and Airways Line Peripheral Left Antecubital 20 Gauge -- days Reviewed lines and needs to be continued: REASONS: Telemetry DATA: Diagnostic tests reviewed for today's visit: Most recent labs Most recent imaging Most recent EKG Assessment/Plan HOSPITAL COURSE: Genaro Willams is a 65 year old male PMHx of HTN, tobacco use, pre-diabetes, anxiety and depression and CVA 08/01/2020 who presented for evaluation of increased agitation. Patient had called police regarding an argument with his after which he was brought to the ED and pink slipped. Infectious work up negative. Evaluated by Neurology. CT brain and MRI with no acute findings. B12, ammonia, folate and TSH WNL. Sodium is downtrending. Thiamine pending. Nephrology and Psychology to evaluate. TIA (transient ischemic attack) Hx of recent stroke 08/01 small lacunar infarcts in left posterior limb internal capsule, and Background of extensive nonspecific, likely microvascular ischemic white matter change and several remote lacunar infarcts. Dysphagia since event on 08/01 Facial droop -- Patient admitted w/ worsening agitation and pink slipped in the ED. -- Had stroke event on 08/01, per family patient is following Neurology and was recommended to stop driving but is having difficultly accepting it and is getting progressively agitated. -- CT brain and MRI done this admission show no evidence of acute stroke -- DC stroke pathway, continue with Lipitor and statin -- Neuro recommending Psych evaluation -- Follow up thiamine level -- Psych to evaluate Agitation Anxiety and depression -- Hx of debilitating anxiety and depression on Trileptal, Seroquel and Effexor for many years, behavior under control prior to stroke now having agitation and aggressive towards family. -- Per daughter Effexor dose has been recently decreased. -- Also on Buprenorphrine patch and Lyrica for chronic pain -- Resume home meds with plan to adjust timing of Seroquel to time of day agitation is greatest -- Continue with PRN Hadolol, may also consider low dose Risperdal if ineffective -- Psychology consult, patient may benefit from transfer to inpatient p (more content not included)... [facility] 10-12-2020 Note HNO ID: [id number] Author: Dolores Fermin APRN.[employer] Service: Hospital Medicine Author Type: Nurse Practitioner Type: Plan of Care Filed: 10/12/2020 3:31 PM Note Text: At present, patient lacks sufficient decision making ability to make informed decisions to leave the hospital due to a current condition of agitation, family do not feel save having patient discharge home. Need psychiatry consult ? Therefore, Genaro Willams should not be allowed to leave the hospital against medical advice. ? The patient will be reevaluated within 24 hours for assessment of their decision making ability to make informed decisions to leave the hospital. ? An attempt will be made to identify an appropriate surrogate decision maker to be an active participant in this patients care. ? The LIP should follow the [facility] patient management guidance referenced below (can be pasted into browser): ? ? 5. Against Medical Advice ( AMA ) Policy [email or web address] 6. Against Medical Advice ( AMA ) Attachment A-? Evaluation of Capacity [email or web address] 7. Against Medical Advice ( AMA ) Attachment B-? Release of Responsibility [email or web address] 8. Patients Without Surrogate Standard Operating Procedure [email or web address] ? Signature: Dolores Fermin APRN.[facility] 10-12-2020 Note HNO ID: [id number] Author: Gilbert Mc MD Service: Neurology General Author Type: Physician Type: Plan of Care Filed: 10/12/2020 9:35 AM Note Text: MRI reviewed. No acute infarct seen. B12 ok, ammonia ok, folate ok, TSH ok, thiamine pending. Recs -D/c stroke pathway. -Continue ASA and atorva. -If thiamine low, recommend starting supplementation at 100mg daily. -Psych eval Neurology signing off. Page with questions. Patient can follow up with Dr. Olguin as an outpatient. Gilbert Mc M.D. [facility] Associate Staff Department of Neurology [facility] 10-11-2020 Note HNO ID: [id number] Author: Shea Fenton PA-C Service: Hospital Medicine Author Type: Physician Cardiac Rehab Nurse Type: Plan of Care Filed: 10/11/2020 2:43 PM Note Text: At present, patient lacks sufficient decision making ability to make informed decisions to leave the hospital due to a current condition of agitation, family do not feel save having patient discharge home. Need psychiatry consult ? Therefore, Genaro Willams should not be allowed to leave the hospital against medical advice. ? The patient will be reevaluated within 24 hours for assessment of their decision making ability to make informed decisions to leave the hospital. ? An attempt will be made to identify an appropriate surrogate decision maker to be an active participant in this patients care. ? The LIP should follow the [facility] patient management guidance referenced below (can be pasted into browser): ? ? 5. Against Medical Advice ( AMA ) Policy [email or web address] [email or web address] 6. Against Medical Advice ( AMA ) Attachment A-? Evaluation of Capacity [email or web address] 7. Against Medical Advice ( AMA ) Attachment B-? Release of Responsibility [email or web address] 8. Patients Without Surrogate Standard Operating Procedure [email or web address] ? Signature: Shea Fenton PA-C [facility] 10-11-2020 Note HNO ID: [id number] Author: Shea Fenton PA-C Service: Hospital Medicine Author Type: Physician Cardiac Rehab Nurse Type: Progress Notes Filed: 10/11/2020 1:57 PM Note Text: DEPARTMENT OF HOSPITAL MEDICINE PROGRESS NOTE SERVICE DATE: 10/11/2020 SERVICE TIME: 1:16 PM Hospital Medicine/Primary Attending: Dany Bella MD NIGHT AND WEEKEND COVERAGE: [employer] COVERAGE: Days: [phone], please page attending physician. Nights: [phone], please page [place] Hospitalist Night coverage pager [phone]. Subjective INTERVAL HPI: Patient presented w/ AMS and worsening agitation, UA no evidence of UTI, Brain CT no acute findings. Neurology was consult given hx of recent stroke 3 months ago. MRI No acute intracranial findings. ?Chronic changes, as detailed. Per neurology agitation unlikely related to acute stroke. Mild facial droop since prior stroke, per RN failed bedside swallow evaluation, will speech evaluation Recommended psychiatry consult Patient is on Effexor, Trileptal and Seroquel for severe years due hx of severe anxiety and depression. Daughter Nina reports behavior changes since stroke 3 months ago. Pt is no allowed to drive since stroke but he is having a hard time agreeing with it and feels frustrated w/his and daughter. Patient reports this morning that he feels that they are trying to control him too much Patient Denies vision changes, JARVIS, Fever, chills, nausea, vomiting, chest pain, SOB, palpitation, abd pain or diarrhea. Current Facility-Administered Medications Medication Dose Route Frequency - carvedilol 25 mg tab(s) (COREG) 25 mg ORAL BID w MEALS - OXcarbazepine 150 mg tab(s) (TRILEPTAL) 150 mg ORAL BID - pregabalin 200 mg cap(s) (LYRICA) 200 mg ORAL BID - atorvastatin 80 mg tab(s) (LIPITOR) 80 mg ORAL DAILY - lisinopril 10 mg tab(s) (ZESTRIL, PRINIVIL) 10 mg ORAL DAILY - tamsulosin 0.8 mg cap(s) (FLOMAX) 0.8 mg ORAL DAILY - omega-3 acid ethyl esters 1 g cap(s) (LOVAZA) 1 capsule ORAL BID - [START ON 10/14/2020] buprenorphine 10 mcg/hour 1 Patch (BUTRANS) 1 Patch TRANSDERMAL q WED - melatonin 3 mg tab(s) 3 mg ORAL HS PRN - aspirin 81 mg chewable tab(s) 81 mg ORAL/FEEDING TUBE DAILY - pantoprazole DR 40 mg tab(s) (PROTONIX) 40 mg ORAL DAILY (6 AM) - cyclobenzaprine 10 mg tab(s) (FLEXERIL) 10 mg ORAL TID PRN - sodium chloride 0.9 % (flush) 3-5 mL (BD POSIFLUSH) 3-5 mL INTRAVENOUS q 12 H - sodium chloride 0.9 % (flush) 2-10 mL (BD POSIFLUSH) 2-10 mL INTRAVENOUS q 12 H - acetaminophen 650 mg tab(s) (TYLENOL) 650 mg ORAL/FEEDING TUBE q 4 H PRN - ondansetron (PF) 4 mg injection (ZOFRAN) 4 mg INTRAVENOUS q 6 H PRN - QUEtiapine 50 mg tab(s) (SEROquel) 50 mg ORAL DAILY - venlafaxine 75 mg tab(s) (EFFEXOR) 75 mg ORAL DAILY Objective PHYSICAL EXAM: BP 117/65 Pulse 77 Temp (Src) 98.3 (Oral) Resp 18 Wt 189 lb (85.7kg) SpO2 96% O2 Therapy: Room Air, Liters: 1 Physical Exam Performed: GENERAL: well appearing, alert and in no acute distress HEART: regular rate and rhythm, no murmur, gallop or rub, normal, S1, S2 LUNGS: clear to auscultation and no rales or wheezing. ABDOMEN: Soft, nontender, bowel sounds normal, no palpable organomegaly EXTREMITY: Normal exam of the extremities. No clubbing, cyanosis, or edema. NEURO: Sensation grossly intact, Cranial nerves II-VII intact. Mild facial drop. PULSES: 2+ radial Lines, Drains, and Airways Line Peripheral Left Antecubital 20 Gauge -- days Reviewed lines and needs to be continued: REASONS: Difficulty in obtaining/maintaining access DATA: Diagnostic tests reviewed for today's visit: Most recent labs Recent Labs 10/11/20 0936 10/11/20 0615 10/10/20 1323 WBC -- 7.16 6.42 HB -- 10.6* 10.8* HCT -- 32.5* 32.6* PLT -- 282 272 NA 130* 130* 131* K 4.8 Unable to assay due to interference from hemolysis. Suggest reorder as clinically indicated. 4.9 CHLOR 91* 91* 92* CO2 32* 29 32* CREAT 1.12 1.11 1.16 BUN 12 12 11 GLUC 107* 94 113* TPROT -- 6.3 6.3 ALB -- 3.7* 3.9 MG -- -- 1.7 CA 8.9 9.1 9.3 ALKPHOS -- 110 105 TBILI -- 0.4 0.4 AST -- 19 Unable to assay due to interference from hemolysis. Suggest reorder as clinically indicated. 16 ALT -- 16 Unable to assay due to interference from hemolysis. Suggest reorder as clinically indicated. 16 Assessment/Plan Problem List Stroke (cerebrum) (HCC) POA: Yes Dysphagia POA: Yes Hypertension POA: Yes Smoking POA: Yes Prediabetes POA: Yes Obesity, Class I, BMI 30-34.9 POA: Yes TIA (transient ischemic attack) POA: Yes Agitation POA: Unknown Anxiety and depression POA: Unknown HOSPITAL COURSE: Genaro Willams is a 65 year old male PMHx of HTN, tobacco use, pre-diabetes, anxiety and depression, stroke 08/01/2020 who presented with w/ complain of agitation. Pt called police about argument w/ his and brought the ED in the ED he was pink slipped, UA negative, CT brain negative, neurology con (more content not included)... [facility] documented as of this encounter (statuses as of 08/24/2021) [facility]06-05-2021 History of Past illness Narrative* Problem Noted Date Resolved Date TIA (transient ischemic attack) 10/10/2020 10/13/2020 Prediabetes 08/04/2020 10/13/2020 Stroke (cerebrum) 08/01/2020 10/13/2020 Last Assessment & Plan: Await MRI to confirm Dysphagia 08/01/2020 10/13/2020 Last Assessment & Plan: NPO speech eval. May need MBS Hypertension 08/01/2020 10/13/2020 Last Assessment & Plan: PRN hydralazine but allowance of permissive HTN Smoking 08/01/2020 10/13/2020 Last Assessment & Plan: Nicotine patch. Cessation recommended to patient Left arm pain 08/14/2016 08/15/2016 documented as of this encounter (statuses as of 02/28/2022) [facility]06-05-2021 History of Past illness Narrative* Problem Noted Date Resolved Date TIA (transient ischemic attack) 10/10/2020 10/13/2020 Prediabetes 08/04/2020 10/13/2020 Stroke (cerebrum) 08/01/2020 10/13/2020 Last Assessment & Plan: Await MRI to confirm Dysphagia 08/01/2020 10/13/2020 Last Assessment & Plan: NPO speech eval. May need MBS Hypertension 08/01/2020 10/13/2020 Last Assessment & Plan: PRN hydralazine but allowance of permissive HTN Smoking 08/01/2020 10/13/2020 Last Assessment & Plan: Nicotine patch. Cessation recommended to patient Left arm pain 08/14/2016 08/15/2016 documented as of this encounter (statuses as of 08/26/2022) [facility]03-30-2021 NoteHNO ID: [id number] Author: Hue (Rn) LAMAR Pfeiffer Service: Care Management Author Type: Registered Nurse Type: Care Mgt Progress Note Filed: 08/04/2020 3:04 PM Note Text: CARE MANAGEMENT DISCHARGE NOTE SERVICE DATE: 08/04/2020 SERVICE TIME: 3:01 PM LOS: 3 days Admission Date: 07/31/2020 DISCHARGE ARRANGEMENT (list agency and phone number) Discharge Arrangement: [facility] CAREGIVER ASSESSMENT: Caregiver is ready, willing and able to meet the patient's needs as recommended by the inter-professional team:: Yes Does the patient have an acute stroke diagnosis, or has the patient had a stroke during this admission?: Yes Patient's transition needs and plan for meeting these needs: Acute Rehab at [facility] HANDOFF COMMUNICATION: Handoff to: Primary Care Physician;Other Caregiver Primary Care Physician Name/Phone: Michele Brambila [phone] Other Caregiver Name/Phone: [facility] TRANSPORTATION ARRANGEMENTS: Transportation Arrangements: Ambulance/[place] Transportation Agency and Phone #:: [facility] [phone] Date of Trip: 08/04/20 Time of Trip: 1530 Type of Service: BLS Non-emergency Is Patient Medicaid Pending?: No Discussion of financial coverage occurred with: 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 and agreeable. Discussed with patient and transportation. Patient is new on oxygen and family does not have a portable oxygen tank to provide oxygen during transport. Discussed potential financial responsibility for ambulance transport and family is agreeable. Ambulance arranged for 3:30 PM corn picker. [facility] updated. SIGNATURE: Hue Pfeiffer RN PATIENT NAME: Genaro Willams DATE: August 04, 2020 TIME: 3:01 PM PAGER/CONTACT #: [phone] [id number] NoteHNO ID: [id number] Author: Asif Cruz MD Service: Hospital Medicine Author Type: Physician Type: Progress Notes Filed: 08/04/2020 1:29 PM Note Text: DEPARTMENT OF HOSPITAL MEDICINE PROGRESS NOTE SERVICE DATE: 08/04/2020 SERVICE TIME: 12:48 PM Hospital Medicine/Primary Attending: Asif Cruz MD NIGHT AND WEEKEND COVERAGE: [employer] COVERAGE: Nights: [phone], please page [place] Hospitalist Night coverage pager [phone]. Assessment/Plan ASSESSMENT No chest pain but some cough and shortness of breath. The patient had dysarthria swallow studies okay now he may have aspirated and also has been very lethargic unclear etiology PLAN 1. ABG-consistent chronic with hypercapnic/hypoxic respiratory failure 2. Continue electronic device monitor and plan Salbador Weaver tomorrow if everything comes together-no significant dysrhythmia 3. CT chest -chronic granulomas 4. Aspirin/Plavix as per neurology 5. LVH otherwise unremarkable echocardiogram result 6. Overnight desaturation study-did not desaturate during sleep Reason for Admission: Acute stroke acute lethargy Consultants: Teleneurology PROCEDURES: NONE Disposition: Acute Rehab HOSPITAL COURSE: Genaro Willams is a 65 year old male presented with past medical history of anxiety GERD HPL HTN smoking presenting with dysarthria and right sided facial droop noticed by family late evening of 07/31/20. Last normal ~6 pm. Patient reports he also had some coordination difficulties. No vision change. Symptoms sudden without exacerbating or relieving factors. ? Stroke (cerebrum) (HCC) Spinal stenosis, lumbar region, without neurogenic claudication Dysphagia Hypertension Smoking Prediabetes Chronic respiratory failure with hypoxia and hypercapnia (HCC) Principal Problem: Stroke (cerebrum) (HCC) Assessment AND Plan: As above with neurology recommendations for statin aspirin and Plavix Active Problems: Spinal stenosis, lumbar region, without neurogenic claudication Assessment AND Plan: Continue current therapy Dysphagia Assessment AND Plan: Has improved per speech therapy need just to monitor in case he had some aspiration Hypertension Assessment AND Plan: Careful monitoring of blood pressure with medication adjustment as needed Smoking Assessment AND Plan: Cessation encouraged RESOLVED PROBLEMS Recent Labs 08/03/20 1355 PH 7.377 PCO2 52.6* PO2 62.6* HCO3 30.2* BE 4.3 Recent Labs 08/03/20 1355 O2HB 87.1* COHB 1.4 MHGB 0.9 Recent Labs 08/04/20 0525 08/03/20 0553 08/02/20 0510 08/01/20 0433 08/01/20 0005 TROPT -- -- -- -- <0.010 MCV 96.4 96.6 95.5 < > 95.2 MCH 31.7 31.4 31.2 < > 32.0 MPV 10.0 10.0 9.6 < > 9.4 < > = values in this interval not displayed. Recent Labs 08/04/20 0508/03/20 0553 08/02/20 0510 WBC 9.34 8.05 7.75 RBC 3.91* 4.07* 3.97* HB 12.4* 12.8* 12.4* HCT 37.7* 39.3 37.9* PLT 277 281 261 MCV 96.4 96.6 95.5 MCH 31.7 31.4 31.2 MPV 10.0 10.0 9.6 Recent Labs 08/04/20 0525 08/03/20 0553 08/02/20 0510 GLUC 102* 100* 92 NA 139 141 137 K 3.8 4.7 3.4* CHLOR 102 103 100 CO2 26 29 26 CREAT 1.25* 1.26* 1.17 BUN 14 15 10 ANION 11 9 11 CA 9.1 9.5 9.0 Recent Labs 08/04/20 0525 08/03/20 0553 08/02/20 0510 BUN 14 15 10 CREAT 1.25* 1.26* 1.17 CA 9.1 9.5 9.0 MG 2.0 2.1 2.0 Most recent labs PHYSICAL EXAM: BP 156/70 Pulse 76 Temp (Src) 97 (Temporal) Resp 20 Ht 5' 7 (1.70m) Wt 195 lb 15.8 oz (88.9kg) SpO2 95% BMI 30.69 kg/(m2). O2 Therapy: Room Air Physical Exam Performed GENERAL: Lethargic, no distress, cooperative NECK: No jugulovenous distention, Supple LUNGS: Clear to auscultation, respiratory distress - no CARDIAC: Rhythm: regular rate and rhythm, Rate: normal, S1: decreased intensity, S2: paradoxically splitting, murmur -none heard ABDOMEN: Abdomen soft, non-tender, BS normal, No masses or organomegaly EXTREMITIES: No edema, no cords NEURO: Grossly normal cognition and persistent right facial weakness with some slight right arm drift The remainder of the physical exam is noncontributory. Current Facility-Administered Medications Medication Dose Route Frequency - sodium chloride 0.9 % (flush) 3-5 mL (BD POSIFLUSH) 3-5 mL INTRAVENOUS q 12 H - polyethylene glycol 3350 17 g packet (MIRALAX, GLYCOLAX) 17 g ORAL DAILY PRN - benzocaine-menthol 1 Lozenge (CEPACOL) 1 Lozenge MUCOUS MEMBRANE (TOPICAL MOUTH AND THROAT) q 2 H PRN - calcium carbonate 1,000 mg chewable tab(s) (TUMS) 1,000 mg ORAL TID PRN - melatonin 3 mg tab(s) 3 mg ORAL HS PRN - ondansetron (PF) 4 mg injection (ZOFRAN) 4 mg INTRAVENOUS q 6 H PRN - acetaminophen 1,000 mg tab(s) (TYLENOL) 1,000 mg ORAL q 6 H PRN - nicotine 21 mg/24 hr 1 Patch (NICODERM) 1 Patch TRANSDERMAL DAILY - nicotine -- REMOVE patch OTHER DAILY - nicotine - verify patch OTHER q 8 H - aspirin 81 mg chewable tab(s) 81 mg ORAL/FEEDING TUBE DAILY (more content not included)...[id number] NoteHNO ID: [id number] Author: Hue (Rn) LAMAR Pfeiffer Service: Care Management Author Type: Registered Nurse Type: Care Mgt Progress Note Filed: 08/03/2020 5:30 PM Note Text: CARE MANAGEMENT PROGRESS NOTE SERVICE DATE: 08/03/2020 SERVICE TIME: 5:29 PM LOS: 2 days Needs Prior to Discharge: To Be Determined EMR reviewed, discussed POC with Dr Cruz. Sal[facility]ador Weaver accepted patient. Per Dr Cruz plan d/c Monday. Salbador weaver updated. Positive stroke. No precert needed. Transportation TBD. SIGNATURE: Hue Pfeiffer RN PATIENT NAME: Genaro Willams DATE: August 03, 2020 TIME: 5:29 PM PAGER/CONTACT #: [phone] [id number] NoteHNO ID: [id number] Author: Asif Cruz MD Service: Hospital Medicine Author Type: Physician Type: Progress Notes Filed: 08/03/2020 1:11 PM Note Text: DEPARTMENT OF HOSPITAL MEDICINE PROGRESS NOTE SERVICE DATE: 08/03/2020 SERVICE TIME: 1:03 PM Hospital Medicine/Primary Attending: Asif Cruz MD NIGHT AND WEEKEND COVERAGE: [employer] COVERAGE: Nights: [phone], please page [place] Hospitalist Night coverage pager [phone]. Assessment/Plan ASSESSMENT No chest pain but some cough and shortness of breath. The patient had dysarthria swallow studies okay now he may have aspirated and also has been very lethargic unclear etiology PLAN 1. ABG 2. Continue electronic device monitor and plan Salbador Weaver tomorrow if everything comes together 3. CT chest for aspiration 4. Aspirin/Plavix as per neurology 5. Check echocardiogram result 6. Overnight desaturation study Reason for Admission: Acute stroke acute lethargy Consultants: Teleneurology PROCEDURES: NONE Disposition: Acute Rehab EKG: HOSPITAL COURSE: Genaro Willams is a 65 year old male presented with past medical history of anxiety GERD HPL HTN smoking presenting with dysarthria and right sided facial droop noticed by family late evening of 07/31/20. Last normal ~6 pm. Patient reports he also had some coordination difficulties. No vision change. Symptoms sudden without exacerbating or relieving factors. ? Stroke (cerebrum) (HCC) Spinal stenosis, lumbar region, without neurogenic claudication Dysphagia Hypertension Smoking Principal Problem: Stroke (cerebrum) (HCC) Assessment AND Plan: As above with neurology recommendations for statin aspirin and Plavix Active Problems: Spinal stenosis, lumbar region, without neurogenic claudication Assessment AND Plan: Continue current therapy Dysphagia Assessment AND Plan: Has improved per speech therapy need just to monitor in case he had some aspiration Hypertension Assessment AND Plan: Careful monitoring of blood pressure with medication adjustment as needed Smoking Assessment AND Plan: Cessation encouraged RESOLVED PROBLEMS No results for input(s): PH, PHABG, PCO2, PO2, HCO3, BEABG, BE, VPH, VPC2, VPO2C, ATY3NFD, VBE, BICARB, PHCAP, UFQ4STR, PO2POC, VEC2XBU, BEPOC, LACT in the last 168 hours. No results for input(s): GLB, GLUCOSEPOC, HCTPOC, HGBPOC, HCTVBG, HGBVGB, Z3PXVMN, O2HB, O2CT, COHB, MHGB, KWB, CLWH, IC in the last 168 hours. Invalid input(s): NAB Recent Labs 08/03/20 0553 08/02/20 0510 08/01/203 08/01/20 0005 08/01/20 0005 TROPT -- -- -- -- <0.010 MCV 96.6 95.5 94.8 < > 95.2 MCH 31.4 31.2 31.8 < > 32.0 MPV 10.0 9.6 9.6 < > 9.4 < > = values in this interval not displayed. Recent Labs 08/03/2053 08/02/20 0508/01/20432 WBC 8.05 7.75 8.39 RBC 4.07* 3.97* 4.02* HB 12.8* 12.4* 12.8* HCT 39.3 37.9* 38.1* PLT 281 261 265 MCV 96.6 95.5 94.8 MCH 31.4 31.2 31.8 MPV 10.0 9.6 9.6 Recent Labs 08/03/20 0553 08/02/20 0510 08/01/20 043 GLUC 100* 92 100* NA 141 137 136 K 4.7 3.4* 4.2 CHLOR 103 100 98 CO2 29 26 25 CREAT 1.26* 1.17 1.15 BUN 15 10 9 ANION 9 11 13 CA 9.5 9.0 9.1 Recent Labs 08/03/20 0553 08/02/20 0510 08/01/20432 BUN 15 10 9 CREAT 1.26* 1.17 1.15 CA 9.5 9.0 9.1 MG 2.1 2.0 1.8 Most recent labs PHYSICAL EXAM: BP 128/62 Pulse 80 Temp (Src) 97.4 (Temporal) Resp 16 Ht 5' 7 (1.70m) Wt 191 lb 12.8 oz (87.0kg) SpO2 94% BMI 30.03 kg/(m2). O2 Therapy: Room Air Physical Exam Performed GENERAL: Lethargic, no distress, cooperative NECK: No jugulovenous distention, Supple LUNGS: Clear to auscultation, respiratory distress - no CARDIAC: Rhythm: regular rate and rhythm, Rate: normal, S1: decreased intensity, S2: paradoxically splitting, murmur -none heard ABDOMEN: Abdomen soft, non-tender, BS normal, No masses or organomegaly EXTREMITIES: No edema, no cords NEURO: Grossly normal cognition and motor function The remainder of the physical exam is noncontributory. Current Facility-Administered Medications Medication Dose Route Frequency - sodium chloride 0.9 % (flush) 3-5 mL (BD POSIFLUSH) 3-5 mL INTRAVENOUS q 12 H - polyethylene glycol 3350 17 g packet (MIRALAX, GLYCOLAX) 17 g ORAL DAILY PRN - benzocaine-menthol 1 Lozenge (CEPACOL) 1 Lozenge MUCOUS MEMBRANE (TOPICAL MOUTH AND THROAT) q 2 H PRN - calcium carbonate 1,000 mg chewable tab(s) (TUMS) 1,000 mg ORAL TID PRN - melatonin 3 mg tab(s) 3 mg ORAL HS PRN - ondansetron (PF) 4 mg injection (ZOFRAN) 4 mg INTRAVENOUS q 6 H PRN - acetaminophen 1,000 mg tab(s) (TYLENOL) 1,000 mg ORAL q 6 H PRN - nicotine 21 mg/24 hr 1 Patch (NICODERM) 1 Patch TRANSDERMAL DAILY - nicotine -- REMOVE patch OTHER DAILY - nicotine - verify patch OTHER q 8 H - aspirin 81 mg chewable tab(s) 81 mg ORAL/FEEDING TUBE DAILY Or - aspirin 300 mg suppository 300 mg RECTAL DAILY - atorvastatin 80 mg tab(s (more content not included)...[facility] 08-02-2020 NoteHNO ID: [id number] Author: Mignon Hyde Service: Hospital Medicine Author Type: Physician Type: Progress Notes Filed: 08/02/2020 4:39 PM Note Text: DEPARTMENT OF HOSPITAL MEDICINE PROGRESS NOTE SERVICE DATE: 08/02/2020 SERVICE TIME: 4:35 PM Hospital Medicine/Primary Attending: Mignon Hyde NIGHT AND WEEKEND COVERAGE: [place] COVERAGE: : [phone], please page attending physician. Nights: [phone], please page [place] [facility] Night coverage pager [phone]. Subjective INTERVAL HPI: resting in bed. Right side is moving more but still unsteady on his feet. Speech remains garbled and he declined to work with [facility] today. He is willing to go to acute rehab No fever or chills. Denies CP, SOB abd pain N/V Current Facility-Administered Medications Medication Dose Route Frequency - sodium chloride 0.9 % (flush) 3-5 mL (BD POSIFLUSH) 3-5 mL INTRAVENOUS q 12 H - polyethylene glycol 3350 17 g packet (MIRALAX, GLYCOLAX) 17 g ORAL DAILY PRN - benzocaine-menthol 1 Lozenge (CEPACOL) 1 Lozenge MUCOUS MEMBRANE (TOPICAL MOUTH AND THROAT) q 2 H PRN - calcium carbonate 1,000 mg chewable tab(s) (TUMS) 1,000 mg ORAL TID PRN - melatonin 3 mg tab(s) 3 mg ORAL HS PRN - ondansetron (PF) 4 mg injection (ZOFRAN) 4 mg INTRAVENOUS q 6 H PRN - acetaminophen 1,000 mg tab(s) (TYLENOL) 1,000 mg ORAL q 6 H PRN - nicotine 21 mg/24 hr 1 Patch (NICODERM) 1 Patch TRANSDERMAL DAILY - nicotine -- REMOVE patch OTHER DAILY - nicotine - verify patch OTHER q 8 H - aspirin 81 mg chewable tab(s) 81 mg ORAL/FEEDING TUBE DAILY Or - aspirin 300 mg suppository 300 mg RECTAL DAILY - atorvastatin 80 mg tab(s) (LIPITOR) 80 mg ORAL DAILY - sodium chloride 0.9 % (flush) 2-10 mL (BD POSIFLUSH) 2-10 mL INTRAVENOUS DIRECTED PRN And - perflutren lipid microspheres 1.1 mg/mL 1.3 mL injection (DEFINITY) 1.3 mL INTRAVENOUS DIRECTED PRN - heparin 5,000 Units injection 5,000 Units SUBCUTANEOUS q 12 H - carvedilol 25 mg tab(s) (COREG) 25 mg ORAL BID w MEALS - OXcarbazepine 150 mg tab(s) (TRILEPTAL) 150 mg ORAL BID - tamsulosin 0.8 mg cap(s) (FLOMAX) 0.8 mg ORAL DAILY - [START ON 08/07/2020] buprenorphine 10 mcg/hour 1 Patch (BUTRANS) 1 Patch TRANSDERMAL 1/WK - QUEtiapine 50 mg tab(s) (SEROquel) 50 mg ORAL DAILY - venlafaxine 37.5 mg tab(s) (EFFEXOR) 37.5 mg ORAL BID - venlafaxine 100 mg tab(s) (EFFEXOR) 100 mg ORAL TID - lisinopril 10 mg tab(s) (ZESTRIL, PRINIVIL) 10 mg ORAL DAILY - clopidogrel 75 mg tab(s) (PLAVIX) 75 mg ORAL/FEEDING TUBE DAILY Objective PHYSICAL EXAM: BP 122/75 Pulse 76 Temp (Src) 96.9 (Temporal) Resp 16 Ht 5' 7 (1.70m) Wt 191 lb 12.8 oz (87.0kg) SpO2 93% BMI 30.03 kg/(m2). O2 Therapy: Room Air Physical Exam Performed GENERAL: Alert, no distress, cooperative LUNGS: Lungs clear to auscultation, Good diaphragmatic excursion CARDIAC: Normal S1 and S2; no rubs, murmurs, or gallops ABDOMEN: Abdomen soft, non-tender, BS normal, EXTREMITIES: Extremities normal, no deformities, edema, clubbing or skin discoloration. Good capillary refill., No ulcers NEURO: Reflexes normal and symmetric. Sensation grossly intact, Cranial nerves II-XII intact. Right facial droop, right side weakness in UE and LE +dysarthria and limb ataxia. No drift Lines, Drains, and Airways Line Peripheral 07/31/20 Admission to Hospital Right Hand 18 Gauge 2 days Peripheral 07/31/20 Left Antecubital 18 Gauge 2 days DATA: Diagnostic tests reviewed for today's visit: Most recent labs Most recent imaging Assessment/Plan Problem List Stroke (cerebrum) (HCC) Dysphagia Spinal stenosis, lumbar region, without neurogenic claudication Hypertension Smoking HOSPITAL COURSE: Genaro Willams is a 65 year old male presented with past medical history of hx of anxiety GERD HPL HTN and chronic back pain presents with right side weakness and dysarthria Principal Problem: Acute Stroke (cerebrum) MRI with acute infarcts in left posterior limb internal capsule. Background nonspecific extensive microvascular ischemic white matter change and several remote lacunar infarcts Continue stroke protocol Neurology following On asa, plavix statin and BP control HgA1c and lipid panel reviewed with , will need close follow up and aggressive mgmt ST, PT/OT and CM consult Active Problems: Dysphagia Speech therapy eval reviewed. Attempt puree diet with thin liquids Spinal stenosis, lumbar region, without neurogenic claudication Continue buprenorphine, trileptal, effexor, lyrica Pharmacy reviewed med rec for accuracy Hypertension Continue carvedilol, benzapril and add meds if needed for goal BP 120/80 Smoking Smoking cessation advised Nicotine patch ordered For echocardiogram tomorrow and then disposition planning for acute rehab Medication and Non-Pharmacologic VTE Prophylaxis/Anticoagulants Anticoagulant AND Antiplatelet Medications (From admission, onward) Comment Start Dose R (more content not included)...[facility] [id number] NoteHNO ID: [id number] Author: Ayaan Melara (Pharmacist) Service: Pharmacy Author Type: Pharmacist Type: Plan of Care Filed: 08/01/2020 4:48 PM Note Text: MEDICATION HISTORY AND MEDICATION RECONCILIATION Patient Name:Anat Willams : 1955 Source of history:Patient: Reliability of source: Appears reliable, clearly identified: Medication name, Medication route and Medication frequency, Family: Reliability of source: Was reading from the bottles the patient had at home and [facility] records Medication Nonadherence Identified: No barriers noted The above information represents the best possible medication history: Yes ? Medications removed: ? Afluria 8568-6241 vaccine ? Pregabalin 200 mg (last filled 12/04/2019 - patient stated he forgot about it and doesn't take it) ? Quetiapine XR 150 mg (most recent fill was IR formulation - addressed below) ? Medications adjusted: ? Simvastatin most recent fill was 80 mg daily at bedtime instead of 40 mg ? Medications added: ? Quetiapine IR 50 mg daily Reconciliation completed? 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 Patient's family member was able to find the medication at home. Patient stated he combines venlafaxine XR 150 mg with venlafaxine XR 75 mg in the morning. And takes an additional XR 150 mg at bedtime. 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 08/01/2020 at Unknown time Yes simvastatin (ZOCOR) 80 mg tablet Take 80 mg by mouth daily at bedtime. Yes QUEtiapine (SEROQUEL) 50 mg tablet Take 50 mg by mouth once daily. Yes buprenorphine (BUTRANS) 10 mcg/hour Apply 1 Patch as directed one time a week for 84 days. Patient taking differently: Apply 1 Patch as directed one time a week. On Monday Yes carvedilol (COREG) 25 mg tablet 25 mg twice daily with meals. 08/01/2020 at Unknown time Yes venlafaxine XR 75 mg 24 hr capsule Take 1 capsule by mouth once daily. Patient taking differently: Take 75 mg by mouth once daily. In combination with 150 mg dose in the morning 07/31/2020 at Unknown time Yes Omeprazole (PRILOSEC) 40 mg capsule Take 1 capsule by mouth once daily. 07/31/2020 at Unknown time Yes OXcarbazepine (TRILEPTAL) 150 mg tablet Take 1 tablet by mouth twice daily. 07/31/2020 at Unknown time Yes venlafaxine XR 150 mg 24 hr capsule Take 1 capsule by mouth twice daily. 07/31/2020 at Unknown time Yes tamsulosin (FLOMAX) 0.4 mg Cp24 Take 2 capsules by mouth once daily. 07/31/2020 at Unknown time Yes Foyhu-0-SNT-EPA-Fish Oil 1,200 (144-216) mg cap Take 1 capsule by mouth twice daily. Past Week at Unknown time Yes MULTIVITAMIN WITH MINERALS (MULTIVITAMIN AND MINERAL FORMULA ORAL) Take 1 tablet by mouth once daily. Past Week at Unknown time Yes Ayaan Melara, Pharmacist August 01, 2020 4:42 PMToledo [id number] NoteHNO ID: [id number] Author: Mignon Hyde Service: Hospital Medicine Author Type: Physician Type: Progress Notes Filed: 08/01/2020 3:58 PM Note Text: DEPARTMENT OF HOSPITAL MEDICINE PROGRESS NOTE SERVICE DATE: 08/01/2020 SERVICE TIME: 3:40 PM Hospital Medicine/Primary Attending: Mignon Hyde NIGHT AND WEEKEND COVERAGE: [place] COVERAGE: Days: [phone], please page attending physician. Nights: [phone], please page [place] [facility]ist Night coverage pager [phone]. Subjective INTERVAL HPI: resting in bed. Says he didn't sleep last night and very tired. Still with garbled speech and right side weakness. Had swallow study earlier. No fever or chills. Denies CP, SOB abd pain N/V Current Facility-Administered Medications Medication Dose Route Frequency - iv contrast (radiology procedure) INTRAVENOUS DIRECTED PRN - sodium chloride 0.9 % (flush) 3-5 mL (BD POSIFLUSH) 3-5 mL INTRAVENOUS q 12 H - polyethylene glycol 3350 17 g packet (MIRALAX, GLYCOLAX) 17 g ORAL DAILY PRN - benzocaine-menthol 1 Lozenge (CEPACOL) 1 Lozenge MUCOUS MEMBRANE (TOPICAL MOUTH AND THROAT) q 2 H PRN - calcium carbonate 1,000 mg chewable tab(s) (TUMS) 1,000 mg ORAL TID PRN - melatonin 3 mg tab(s) 3 mg ORAL HS PRN - ondansetron (PF) 4 mg injection (ZOFRAN) 4 mg INTRAVENOUS q 6 H PRN - acetaminophen 1,000 mg tab(s) (TYLENOL) 1,000 mg ORAL q 6 H PRN - nicotine 21 mg/24 hr 1 Patch (NICODERM) 1 Patch TRANSDERMAL DAILY - [START ON 08/02/2020] nicotine -- REMOVE patch OTHER DAILY - nicotine - verify patch OTHER q 8 H - aspirin 81 mg chewable tab(s) 81 mg ORAL/FEEDING TUBE DAILY Or - aspirin 300 mg suppository 300 mg RECTAL DAILY - atorvastatin 80 mg tab(s) (LIPITOR) 80 mg ORAL DAILY - sodium chloride 0.9 % (flush) 2-10 mL (BD POSIFLUSH) 2-10 mL INTRAVENOUS DIRECTED PRN And - perflutren lipid microspheres 1.1 mg/mL 1.3 mL injection (DEFINITY) 1.3 mL INTRAVENOUS DIRECTED PRN - heparin 5,000 Units injection 5,000 Units SUBCUTANEOUS q 12 H - carvedilol 25 mg tab(s) (COREG) 25 mg ORAL BID w MEALS - OXcarbazepine 150 mg tab(s) (TRILEPTAL) 150 mg ORAL BID - pregabalin 200 mg cap(s) (LYRICA) 200 mg ORAL BID - benazepril 10 mg tab(s) (LOTENSIN) 10 mg ORAL DAILY - QUEtiapine XR 150 mg tab(s) (SEROquel XR) 150 mg ORAL DAILY - tamsulosin 0.8 mg cap(s) (FLOMAX) 0.8 mg ORAL DAILY - buprenorphine 10 mcg/hour 1 Patch (BUTRANS) 1 Patch TRANSDERMAL 1/WK - venlafaxine ER 150 mg cap(s) (EFFEXOR XR) 150 mg ORAL BID Objective PHYSICAL EXAM: BP 197/91 Pulse 88 Temp (Src) 96.9 (Temporal) Resp 16 Ht 5' 7 (1.70m) Wt 191 lb 12.8 oz (87.0kg) SpO2 98% BMI 30.03 kg/(m2). O2 Therapy: Room Air Physical Exam Performed GENERAL: Alert, no distress, cooperative LUNGS: Lungs clear to auscultation, Good diaphragmatic excursion CARDIAC: Normal S1 and S2; no rubs, murmurs, or gallops ABDOMEN: Abdomen soft, non-tender, BS normal, EXTREMITIES: Extremities normal, no deformities, edema, clubbing or skin discoloration. Good capillary refill., No ulcers NEURO: Reflexes normal and symmetric. Sensation grossly intact, Cranial nerves II-XII intact. Right facial droop, right side weakness in UE and LE +dysarthria and limb ataxia. No drift Lines, Drains, and Airways Line Peripheral 07/31/20 Admission to Hospital Right Hand 18 Gauge 1 day Peripheral 07/31/20 Left Antecubital 18 Gauge 1 day DATA: Diagnostic tests reviewed for today's visit: Most recent labs Most recent imaging Assessment/Plan Problem List Stroke (cerebrum) (HCC) Dysphagia Spinal stenosis, lumbar region, without neurogenic claudication Hypertension Smoking HOSPITAL COURSE: Genaro Willams is a 65 year old male presented with past medical history of hx of anxiety GERD HPL HTN and chronic back pain presents with right side weakness and dysarthria Principal Problem: Acute Stroke (cerebrum) MRI with acute infarcts in left posterior limb internal capsule. Background nonspecific extensive microvascular ischemic white matter change and several remote lacunar infarcts Continue stroke protocol Neurology following On asa, statin and BP control HgA1c and lipid panel in process ST, PT/OT and CM consult Active Problems: Dysphagia Speech therapy eval reviewed. Attempt puree diet with thin liquids Spinal stenosis, lumbar region, without neurogenic claudication Continue buprenorphine, trileptal, effexor, lyrica Asked pharmacy to review med rec for accuracy Hypertension Continue carvedilol, benzapril and add meds if needed for goal BP 120/80 Smoking Smoking cessation advised Nicotine patch ordered Medication and Non-Pharmacologic VTE Prophylaxis/Anticoagulants Anticoagulant AND Antiplatelet Medications (From admission, onward) Comment Start Dose Route Frequency Last Action Ordered Stop 08/01/20 0930 heparin 5,000 Units injection 5,000 Units SUBCUTANEOUS EVERY 12 HOURS Given, 08/01 1113 08/01/20 0922 -- 0 (more content not included)...[facility]* Diagnosis Postlaminectomy syndrome of cervical region Postlaminectomy syndrome, cervical region Cervical radicular pain Brachial neuritis or radiculitis nos Spinal stenosis, lumbar region, without neurogenic claudication Lumbosacral spondylosis without myelopathy documented in this encounter [facility] Diagnosis Encounter for long-term (current) use of medications- Primary Encounter for long-term (current) use of other medications Postlaminectomy syndrome of cervical region Postlaminectomy syndrome, cervical region Cervical radicular pain Brachial neuritis or radiculitis nos Spinal stenosis, lumbar region, without neurogenic claudication Lumbosacral spondylosis without myelopathy documented [facility] this [facility] Diagnosis Postlaminectomy syndrome of cervical region Postlaminectomy syndrome, cervical region Cervical radicular pain Brachial neuritis or radiculitis nos Spinal stenosis, lumbar region, without neurogenic claudication Lumbosacral spondylosis without myelopathy documented in this encounter [facility] Summary Purpose Family History No Family History Records FoundNo Family History Records FoundNo Family History Records FoundNo Family History Records FoundNo Family History Records FoundNo Family History Records Found Advance Directives No Advanced Directives Records FoundDocuments on File Type Date Recorded 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 Advance Directives and Living Will Power of Business Development Engineer Documents on File Type Date Recorded 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 Advance Directive(s) 10/10/2020 1:21 PM Advance Directive(s) 08/01/2020 12:15 AM Latest Code Status on File Code Status Date Activated Date Inactivated Comments Full Code 10/13/2020 8:44 AM 10/14/2020 8:35 PM Full Code Order Discussed With: Patient Full Code 08/01/2020 1:47 AM 08/04/2020 6:54 PM Reason for Referral Status Reason Specialty Diagnoses / Procedures Referre d By Contact Referred To Contact Open Radiology Diagnoses Smoker Procedures CT CHEST LOW DOSE (LDCT) Michele Brambila DO [address] [place] [address] Assessments Diagnosis Smoker Tobacco use disorder Additional Source Comments (unrecognized sect ion and content) No Status Records FoundNo Status Records FoundNo Status Records FoundNo Status Records FoundNo Status Records FoundNo Status Records Found INFORMATION SOURCE (unrecogn ized section and content) DATE CREATED AUTHOR AUTHOR'S ORGANIZ ATION 04/15/2018 [facility] DATE CREATED AUTHOR AUTHOR'S ORGANIZ ATION 02/09/2019 [facility] DATE CREATED AUTHOR AUTHOR'S ORGANIZ ATION 05/28/2020 [facility] DATE CREATED AUTHOR AUTHOR'S ORGANIZ ATION 10/16/2020 [facility] DATE CREATED AUTHOR AUTHOR'S ORGANIZ ATION 05/31/2023 [facility] Source Comments (unrecognize d section and content) In the event this informatio n is protected by the Federal Confidentiality of Alcohol and Drug Abuse Patient Records regulations: The Federal rules restrict any use of the information to criminally investigate or prosecute any alcohol or drug abuse patient.[facility] the event this information is protected by the Federal Confidentiality of Alcohol and Drug Abuse Patient Records regulations: The Federal rules restrict any use of the information to criminally investigate or prosecute any alcohol or drug abuse patient.[facility] the event this information is protected by the Federal Confidentiality of Alcohol and Drug Abuse Patient Records regulations: The Federal rules restrict any use of the information to criminally investigate or prosecute any alcohol or drug abuse patient.[facility] Reason for Visit (unrecogniz ed section and content) Reason Comments Pain Refill Request Care Teams (unrecognized sec tion and content) Journalist Relationship Specialty Start Date End Date Brooks Streeter [address] [place] [address] PCP - General Family Medicine 10/10/20 Journalist Relationship Specialty Start Date End Date Brooks StreeterDO [address] [place] [address] PCP - General Family Medicine 10/10/20 FOR RECORDS PERTAINING TO PATIENTS WHO ARE OR HAVE BEEN ENROLLED IN A CHEMICAL DEPENDENCY/SUBSTANCEABUSE PROGRAM, SOME INFORMATION MAY BE OMITTED. This clinical summary was aggregated from multiple sources. Caution should be exercised in using it in the provision of clinical care. This summary normalizes information from multiple sources, and as a consequence, information in this document may materially change the coding, format and clinical context of patient data. In addition, data may be omitted in some cases. CLINICAL DECISIONS SHOULD BE BASED ON THE PRIMARY CLINICAL RECORDS. [email or web address] provides no warranty or guarantee of the accuracy or completeness of information in this document.
== END | disposition home or self-care (01) ==
LOC: BFHLAB 16:31
PROVIDERS: PCP Family Medicine; Visit Provider Family Medicine
DX: N18.31 Chronic kidney disease, stage 3a (principal); E55.9 Vitamin D deficiency, unspecified; R53.83 Other fatigue
CPT/HCPCS: 36415; 80048; 82306; 84439; 84443

== ENCOUNTER → 2024-01-15 | Outpatient (CLI) | payer MEDICARE, BC, SELFPAY ==
[2024-01-15 17:55] LABS: Absolute Lymphocyte Count 2.24 X10^3/uL (0.83-4.51); Absolute Neutrophil Count 4.1 X10^3/uL (2.0-7.7); Basophil# 0.04 X10^3/uL; Basophil% 0.5 % (0-1); Eosinophil# 0.12 X10^3/uL; Eosinophils% 1.6 % (0-5); Hematocrit 39.1 % (40-54); Hemoglobin 12.7 g/dL (13.0-16.5); Lymphocyte # 2.24 X10^3/ul (0.83-4.51); Lymphocyte % 29.4 % (19-41); Mean Corp Hgb Conc 32.5 g/dL (32-36); Mean Corpuscular Hgb 31.1 pg (27.0-32.0); Mean Corpuscular Volume 95.6 fL (80-94); Mean Platelet Vol. 10.5 fl (6.2-12.0); Monocyte# 1.07 X10^3/uL; NRBC Flagged by Analyzer 0 % (0-5); Neutrophil % 53.8 % (47-70); Platelet Count 277 K/mm3 (150-450); Red Blood Count 4.09 M/mm3 (4.6-6.2); White Blood Count 7.6 K/mm3 (4.4-11.0)
[2024-01-15 18:29] LABS: Hemoglobin A1c 5.7 % (3.8-5.6)
[2024-01-15 20:38] LABS: ALB/GLOB Ratio 0.8 RATIO (0.9-2.4); AST(SGOT) 17 U/L (15-37); Alanine Aminotransfer ALT/SGPT 20 U/L (16-61); Alkaline Phosphatase 111 U/L (45-117); Anion Gap 11 (5-15); BUN 11 mg/dL (7-18); BUN/Creat Ratio 7.2 RATIO (10-20); Calcium,Total 9.1 mg/dL (8.5-10.1); Chloride 106 mmol/L (98-107); Cholesterol 159 mg/dL (200); Creatinine, Serum 1.53 mg/dL (0.70-1.30); EST Glomerular Filtration Rate 48 mL/min (>60); Est Glom Filt Rate - Afr Amer 59 mL/min (>60); Globulin 3.7 g/dL (2.2-4.2); Glucose 84 mg/dL (74-106); High Density Lipoprotein 49 mg/dL; PSA,Total - Annual Screen 2.76 ng/mL (0.00-4.00); Potassium 3.9 mmol/L (3.5-5.1); Protein, Total 6.7 g/dL (6.4-8.2); Sodium Level 138 mmol/L (136-145); T4 Free Direct 1.09 ng/dL (0.76-1.46); Triglycerides 191 mg/dL; Very Low Density Lipoprotein 38 mg/dL (5-40)
== END | disposition home or self-care (01) ==
LOC: BFHLAB 16:13
PROVIDERS: PCP Family Medicine; Referring Provider Family Medicine; Visit Provider Family Medicine
DX: I12.9 Hypertensive chronic kidney disease with stage 1 through stage 4 chronic kidney disease, or unspecified chronic kidney disease (principal); N18.31 Chronic kidney disease, stage 3a; I67.9 Cerebrovascular disease, unspecified; R73.03 Prediabetes; R79.89 Other specified abnormal findings of blood chemistry; Z12.5 Encounter for screening for malignant neoplasm of prostate
CPT/HCPCS: 36415; 80053; 80061; 83036; 84153; 84439; 84443; 85025; G0103

== ENCOUNTER → 2024-01-30 | Outpatient (CLI) | payer MEDICARE, BC, SELFPAY ==
--- NOTE | 2024-01-30 18:48 | CT_ITS ---
STUDY: LOW DOSE CT LUNG CANCER SCREENING REASON FOR EXAM: Male, 68 years old. FORMER SMOKER. Patient smoked 2 cigarettes per day for 45 years. RADIATION DOSAGE (If Supplied By Facility): CTDIvol = ( 4.02 ) mGy, DLP = ( 136.92 ) mGycm TECHNIQUE: No contrast was administered. Low dose technique was utilized (average mAS-38 and kVp 120). 1.25 mm axial source images with a slice interval of 1.25-mm were reconstructed in lung windows. 2.5 mm axial source images with a slice interval of 2.5-mm were reconstructed in lung windows. 5.0 mm axial source images with a slice interval of 5.0-mm were reconstructed in soft tissue windows. COMPARISON: Comparison is made with prior study November 30, 2022. NODULES: No suspicious nodules seen. Emphysema: Stable minimal increased markings in the posterior aspect of the lingular segment of the left upper lobe abutting the left major fissure as seen on axial image #139. Calcified granuloma in the right lower lobe. Endobronchial lesion: Unremarkable Aorta: Atherosclerotic plaque formation of the aortic arch. CORONARY ARTERIES: Coronary artery calcification is seen. Heart: Unremarkable Pulmonary artery: Unremarkable Mediastinal nodes: Small mediastinal lymph nodes. Other chest and abdominal findings: CT/Low Dose CT Lung Screening IMPRESSION: Lung-RADS category 2 - Continue annual screening with LDCT in 12 months. IMPORTANT NOTES FOR USE: ACR Lung-RADS Version 1.1 Assessment Categories Release Date: 2018 Category: Coded 0-4 bases on nodule(s) with highest degree of suspicion. Negative screen is defined as categories 1 and 2; a positive screen is defined as categories 3 and 4. Category 3 and 4A nodules that are unchanged on interval CT should be coded as category 2, and individuals returned to screening in 12 months. Category 4X: Category 3 or 4 nodules with additional imaging findings that increase the suspicion of lung cancer, such as spiculation, GGN that doubles in size in 1 year, enlarged lymph notes, etc. Category Modifiers: S (significant finding unrelated to lung cancer) Electronically Signed: Daryl Bethea MD at 14:08 EDT ,
== END | disposition home or self-care (01) ==
LOC: CT 03-26 10:50
PROVIDERS: PCP Family Medicine; Referring Provider Family Medicine; Visit Provider Family Medicine
DX: Z12.2 Encounter for screening for malignant neoplasm of respiratory organs (principal); Z87.891 Personal history of nicotine dependence
CPT/HCPCS: 71271

== ENCOUNTER 2024-05-21 16:30 | Inpatient (IN) | payer MEDICARE, BC, SELFPAY ==
--- NOTE | 2024-05-21 16:47 | HP.PCM_ITS ---
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 He sustained a closed mildly displaced intertrochanteric fracture of the right femur. He ws taken to surgery underwent cephalomedullary nailing at [facility] on 05/15/2024. Creat was 2.2 at presentation to [place]. Lisinopril was placed on hold and he was hydrated. Creat at admission to [facility] is 1.1. Review of labs over the past 18 months shows creat ranging form 1.38-1.53 which is consistent with stage 3a CRF. Postoperatively he had hypercapnic/hypoxic acute respiratory failure and was intubated and transferred to the intensive care. This was thought to be secondary to narcotics/sedation. He was extubated on 05/17/2024. Genaro was transferred to the acute inpt rehab unit at [facility] on 05/21/24 for 3 hours of therapy daily to restore function/independence at or near his level prior to the hip fracture. He was ambulating without an AD prior to the fall. He was independent with ADL's. Genaro tells me that he chronically has insomnia. He has a chronic cough productive of clear sputum but the cough has been worse the past few days. The sputum is still clear. He denies fevers, night sweats, shaking chills. He also denies chest pain. Admits to coughing when drinking liquids. He has no teeth and so he mostly eats soft foods. He denies not thicken his liquids. Swallowing difficulties date back to when he had the CVA in 2020. He also tells me that he has stopped using his PAP therapy for the past couple months. He has known central sleep apnea per a note from neurology. Has been on 2 LPM NC O2 since extubation. Tells me the pain is worse in the R hip today and he attributes this to the ambulance ride yesterday. the Oxycodone is effective when he takes it. All lab drawn this morning was personally reviewed. White blood cell count is normal. Hemoglobin is mildly decreased at 11.3. The last hemoglobin from [facility] and it was 10.6. Ligaments are within normal limits. Sodium is mildly decreased at 134 and the potassium is 4.1. The BUN is 15 with a creatinine of 1.1 which is actually better than his baseline for the past 18 months. [facility] Medical History (Updated 05/22/24 @ 10:[address] Luna Stone, ) HTN (hypertension) Glucose intolerance (impaired glucose tolerance) Insomnia Chronic renal failure (CRF), stage 3a Obesity (BMI 35.0-39.9 without comorbidity) Fatigue Dysarthria Chronic back pain greater than 3 months duration Lumbar canal stenosis Central sleep apnea Edentulous Right hemiparesis Transient ischemic attack Vision problems Stroke High cholesterol Migraines COPD (chronic obstructive pulmonary disease) History of emotional problems Chronic bronchitis UTI (urinary tract infection) Bone fracture Arthritis Home Medications ?Medication ?Instructions ?Recorded ?Last Taken ?Type aspirin 81 mg tablet,delayed 81 mg PO DAILY heart health 08/30/21 05/21/24 History release atorvastatin 80 mg tablet 80 mg PO QHS cholesterol 08/30/21 05/20/24 History buprenorphine 10 mcg/hour weekly 1 patch transdermal QWEEK pain 08/30/21 Unknown History transdermal patch carvedilol 25 mg tablet 12.5 mg PO BID blood pressure 08/30/21 05/21/24 History cyclobenzaprine 10 mg tablet 10 mg PO TID PRN muscle spasm 08/30/21 05/20/24 History lansoprazole 30 mg capsule,delayed 30 mg PO DAILY Gerd 08/30/21 Unknown History release melatonin 3 mg capsule 3 mg PO HS PRN sleep 08/30/21 Unknown History metformin 500 mg tablet 500 mg PO DAILY DM 08/30/21 Unknown History multivitamin 1 tab PO DAILY supplement 08/30/21 Unknown History omega-3 fatty acids-fish oil 360 1 cap PO BID supplement 08/30/21 Unknown History mg-1,200 mg capsule (Fish Oil) oxcarbazepine 150 mg tablet 150 mg PO BID seizures 08/30/21 Unknown History pregabalin 200 mg capsule 200 mg PO BID pain 08/30/21 05/21/24 History tamsulosin 0.4 mg capsule 0.8 mg PO BID retention 08/30/21 05/21/24 History venlafaxine 150 mg 150 mg PO BID mood 08/30/21 Unknown History capsule,extended release 24 hr 3 mm syringe with 25-gauge 1 inch #9 ea 11/02/23 Unknown Rx needle ascorbic acid (vitamin C) 500 mg 500 mg PO BID supplement 05/21/24 05/21/24 History tablet clobetasol 0.05 % topical ointment 1 applic topical BID PRN sores 05/21/24 05/21/24 History cyanocobalamin (vitamin B-12) 1,500 mcg IM QMONTH supplement 05/21/24 Unknown History 1,000 mcg/mL injection solution ferrous sulfate 325 mg (65 mg 325 mg PO DAILY supplement 05/21/24 05/21/24 History iron) tablet oxycodone 5 mg tablet 5 mg PO Q8H PRN pain 05/21/24 05/20/24 History Allergy/AdvReac Type Severity Reaction Status Date / Time tolmetin (From Tolectin) Allergy Severe Anaphylaxis Verified 11/02/23 15:09 Family History Mother Asthma Arthritis Anxiety Bowel disease Depression Hypertension Mental disorder CVA (cerebral vascular accident) Suicide attempt Father Heart disease Other Myocardial infarction Surgical History (Updated 05/22/24 @ 10:[address] Luna Stone DO) History of open reduction and internal fixation (ORIF) procedure History of neck surgery History of hernia surgery History of elbow surgery History of knee surgery Social History (Updated 05/22/24 @ 10:[address] Luna Stone DO) household members: spouse housing: house Smoking Status: Former smoker Tobacco: How many years used: 45 how long ago did patient quit smokin....was smoking 2-3 packs/day for 45 years. alcohol intake: never substance use type: does not use what type of physical activity do you participate in: none ROS Review of Systems ROS Unobtainable: Denies due to encephalopathy, due to endotracheal tube, due to mental condition or due to mental status Constitutional Constitutional: Reports weakness; Denies anorexia, change in weight, chills, fatigue, fever(s) or night sweats Eyes Eyes: Denies blurry vision, change in vision, eye pain or loss of vision ENT HEENT: Reports dysphagia and headache(s); Denies abnormal hearing, dizziness, hearing loss, mouth pain, nasal congestion or sore throat Cardiovascular Cardiovascular: Reports dyspnea on exertion and other Details: Chronic right hemiparesis secondary to remote CVA in 2020. ; Denies chest pain, edema, lightheadedness, orthopnea, orthostatic symptoms, palpitations, paroxysmal nocturnal dyspnea or syncope Respiratory/Chest Respiratory/Chest: Reports cough, productive cough, shortness of breath with exertion and wheezing; Denies dyspnea or shortness of breath at rest Gastrointestinal Gastrointestinal: Reports constipation; Denies abdominal pain, diarrhea, dyspepsia, hematemesis, hematochezia, nausea or vomiting Genitourinary Genitourinary: Reports nocturia, urinary hesitancy and urinary incontinence; Denies dysuria, hematuria, urinary frequency or urinary urgency Musculoskeletal Musculoskeletal: Reports back pain, difficulty walking, extremity pain, muscle weakness and radiating pain into limb; Denies joint pain, joint swelling or neck pain Integumentary Integumentary: Reports alopecia and dry skin; Denies jaundice, pruritus or rash Neurologic Neurologic: Reports focal weakness and headache(s); Denies confusion, disequilibrium, dizziness, paresthesias, seizures or tremor(s) Psychiatric Psychiatric: Reports anxiety and depression; Denies homicidal ideation or suicidal ideation Endocrine Endocrinology: Denies change in body appearance, polydipsia or polyuria Hematologic/Lymphatic Hematologic/Lymphatic: Denies easy bleeding, easy bruising or lymphadenopathy Allergic/Immunologic Allergic/Immunologic: Denies rhinitis, eczemia or asthma Physical Exam Const alert, oriented x3 and no apparent distress Constitutional Narrative: Very pleasant and talkative. Appropriate, polite, making good eye contact when we speak. Some dysarthria making him difficult to understand at times. General Appearance: well kempt and well developed HEENT head/scalp atraumatic HEENT Narrative: MM are a little dry. No thrush. Eyes PERRL, EOMs intact bilaterally, conjunctivae normal and no scleral icterus Eyes Narrative: No discharge from the eyes. No visual field cuts General Eye: normal appearance of both eyes Neck supple and no carotid bruits General: trachea midline Chest Chest: symmetrical chest wall rise Resp normal respiratory effort Resp Narrative: Diminished breath sounds. Scattered expiratory wheezing. Able to take a deep breath without coughing. Seems to cough more after drinking water. Able to use the IS and did 1250 X 5 for me. Effort and Inspection: able to speak in complete sentences Cardio regular rate, regular rhythm, S1 normal heart sound, S2 normal heart sound, no murmurs, no rub and no gallops Cardio Narrative: No ectopy GI GI Narrative: distended and a little firm. Tells me that he is constipated. Does not take stool softeners or laxatives at home But, he sometimes does not move his bowels for a week. Bowel sounds heard in all 4 quadrants. No guarding with palpation. No abdominal bruits appreciated Extremity no calf tenderness and no pedal edema Skin no jaundice Skin Narrative: No rashes Neuro Neuro Narrative: Alert and oriented x 3. Cranial nerves II through XII are grossly intact. Tongue protrudes on the midline. Mild right hemiparesis but is able to hold the right upper extremity up for a count of 10 without significant drift. He was unable to lift the right lower extremity off the bed. Good strength on the left side. Psych cooperative and affect normal Appearance: grossly normal, appropriate and well kempt Attitude: calm Activity / Motor Behavior: appropriate eye contact Speech: normal speech Results Lab / Micro Data 05/22/24 05:32 05/22/24 05:32 Assessment & Plan Assessment/Plan (1) Debility: (2) Fall: QUALIFIERS: Encounter type: subsequent encounter Qualified Code(s): W19.XXXD - Unspecified fall, subsequent encounter (3) Intertrochanteric fracture of right femur: QUALIFIERS: Encounter type: subsequent encounter Fracture type: c losed Fracture alignment: displaced (4) History of open reduction and internal fixation (ORIF) procedure: (5) Acute blood loss anemia: (6) Hyponatremia: (7) Insomnia: QUALIFIERS: Insomnia type: unspecified Qualified Code(s): G47.00 - Insomnia, unspecified (8) Central sleep apnea: (9) Right hemiparesis: (10) Dysarthria as late effect of cerebrovascular accident (CVA): (11) Mild cognitive impairment: (12) Dysphagia: QUALIFIERS: Dysphagia type: unspecified Qualified Code(s): R13.10 - Dysphagia, unspecified (13) Chronic bronchitis: QUALIFIERS: Chronic bronchitis type: simple Qualified Code(s): J 41.0 - Simple chronic bronchitis (14) Glucose intolerance (impaired glucose tolerance): (15) Abnormality of gait as late effect of cerebrovascular accident (CVA): (16) HTN (hypertension): QUALIFIERS: Hypertension type: primary hypertension Qualified Code(s): I10 - Essential (primary) hypertension (17) Chronic renal failure (CRF), stage 3a: (18) Dysarthria: (19) Lumbar canal stenosis: QUALIFIERS: Neurogenic claudication status: with neurogenic claudication Qualified Code(s): M48.062 - Spinal stenosis, lumbar region with neurogenic claudication (20) Chronic back pain greater than 3 months duration: PLAN: Follows with [facility] pain management at [facility] PLAN: Plan PLAN PT for gait stability OT for ADL's ST for evaluation-for dysarthria and swallowing difficulties Analgesics as needed Bowel protocol Fall precautions Assess for Anxiety/Depression GI prophylaxis -lansoprazole DVT prophylaxis with apixaban 2.5 mg twice daily Follow up with orthopedics, Dr. Gaytan and Dr. Streeter following DC from [facility] AM lab including CMP, CBC, Mag and Phos was personally reviewed Changed the Effexor to 225 mg once daily in the AM. Suspect the twice daily dosing is contributing to insomnia. Continue oxycodone 5 mg p.o. every 8 hours as needed for breakthrough pain. May need to increase the dosing frequency since he will be doing 3 hours of therapy daily.. Increase Coreg to 18.75 mg twice daily. DC labetalol and institute hydralazine as needed elevated blood pressure. Encouraged him to have his family bring in his servo unit to see if we can adjust to get a better fit. IS 5-10 breaths Q 1 H while awake. PA and lat CXR today Check a UA since he is retaining and he had a Partida at [place]. Wean O2 as tolerated......was not on O2 prior to the recent hospital admission Charges/Coding Visit Charges Inpatient E&M: 37389 Init Hosp L2
[2024-05-21 17:14] VITALS: BP 185/100; PULSE 99; RESP 17; TEMP 36.4; O2SAT 94; BMI 35.5
[2024-05-21 18:00] VITALS: BP 185/105; PULSE 100; RESP 16; TEMP 36.6; O2SAT 94
[2024-05-21] MEDS: Labetalol 100 MG Tablet PO (19:12)
[2024-05-21 21:05] VITALS: PULSE 109; RESP 18; O2SAT 91
[2024-05-21] MEDS: Tamsulosin HCl 0.4 MG Capsule 0.8 MG PO (22:19)
[2024-05-21] MEDS: Atorvastatin Calcium 80 MG Tablet PO (22:20)
[2024-05-21] MEDS: APIXABAN 2.5 MG TABLET (WCH) PO (22:20)
[2024-05-21] MEDS: Senna/Docusate Sodium 1 Tablet 2 TABLET PO (22:20)
[2024-05-21] MEDS: Venlafaxine XR 150 MG Capsule PO (22:20)
[2024-05-21] MEDS: Carvedilol 12.5 MG Tablet PO (22:20)
[2024-05-21] MEDS: Pregabalin 50 MG Capsule 200 MG PO (22:20)
[2024-05-21] MEDS: oxyCODONE 5 MG Tablet PO (22:20)
[2024-05-21] MEDS: Ascorbic Acid 500 MG Tablet PO (22:20)
[2024-05-21] MEDS: OXcarbazepine 150 MG Tablet PO (22:21)
[2024-05-21] MEDS: Clobetasol Propionate 0.05% Ointment 1 APPLIC TOPICAL (22:24)
[2024-05-22] MEDS: Labetalol 200 MG Tablet PO ×2 (00:46→07:04)
[2024-05-22 00:47] VITALS: BP 163/83
--- NOTE | 2024-05-22 03:36 | NURSING ---
pt sleeping poorly and was up to the [facility] x's 2 in an attempt to us the toilet with no success. pt bladder scanned and value was 164cc. pt has drank 700cc since the start of the shift. rn aware
[2024-05-22 05:43] LABS: Absolute Lymphocyte Count 2.29 X10^3/uL (0.83-4.51); Absolute Neutrophil Count 5.1 X10^3/uL (2.0-7.7); Basophil# 0.07 X10^3/uL; Basophil% 0.8 % (0-1); Eosinophil# 0.18 X10^3/uL; Hematocrit 33.3 % (40-54); Hemoglobin 11.3 g/dL (13.0-16.5); Lymphocyte # 2.29 X10^3/ul (0.83-4.51); Mean Corp Hgb Conc 33.9 g/dL (32-36); Mean Corpuscular Hgb 30.8 pg (27.0-32.0); Mean Corpuscular Volume 90.7 fL (80-94); Mean Platelet Vol. 9.8 fl (6.2-12.0); Monocyte% 14.2 % (0-10); NRBC Flagged by Analyzer 0 % (0-5); Neutrophil # 5.14 X10^3/uL (2.7-7.7); Platelet Count 288 K/mm3 (150-450); RBC Distribution Width CV 14.3 % (11.6-14.6); RBC Distribution Width SD 47.8 fl (35.1-43.9); Red Blood Count 3.67 M/mm3 (4.6-6.2); White Blood Count 9.2 K/mm3 (4.4-11.0)
[2024-05-22 06:00] VITALS: BP 136/90; PULSE 91; RESP 18; TEMP 36.5; O2SAT 95
[2024-05-22 06:26] LABS: ALB/GLOB Ratio 0.6 RATIO (0.9-2.4); AST(SGOT) 27 U/L (15-37); Alanine Aminotransfer ALT/SGPT 21 U/L (16-61); Albumin, Serum 2.6 g/dL (3.2-5.0); Alkaline Phosphatase 84 U/L (45-117); Anion Gap 5 (5-15); BUN 15 mg/dL (7-18); BUN/Creat Ratio 13.6 RATIO (10-20); Calcium,Total 8.9 mg/dL (8.5-10.1); Chloride 103 mmol/L (98-107); EST Glomerular Filtration Rate 71 mL/min (>60); Est Glom Filt Rate - Afr Amer 86 mL/min (>60); Estimated Creatinine Clearance 73.47 ml/min; Glucose 121 mg/dL (74-106); Magnesium 2.3 mg/dL (1.6-2.6); Phosphorus 2.7 mg/dL (2.5-4.9); Potassium 4.1 mmol/L (3.5-5.1); Protein, Total 6.6 g/dL (6.4-8.2); Sodium Level 134 mmol/L (136-145)
[2024-05-22 08:10] VITALS: O2SAT 92
[2024-05-22] MEDS: Carvedilol 12.5 MG Tablet PO (08:14)
[2024-05-22] MEDS: OXcarbazepine 150 MG Tablet PO ×2 (08:14→20:28)
[2024-05-22] MEDS: metFORMIN HCl 500 MG Tablet PO (08:14)
[2024-05-22] MEDS: Aspirin E.C. 81 MG Tablet PO (08:14)
[2024-05-22] MEDS: Venlafaxine XR 150 MG Capsule PO (08:14)
[2024-05-22] MEDS: Multivitamins,Therapeutic Tablet 1 TABLET PO (08:14)
[2024-05-22] MEDS: Polyethylene Glycol 3350 17 GM PACKET PO (08:15)
[2024-05-22] MEDS: Senna/Docusate Sodium 1 Tablet 2 TABLET PO ×2 (08:15→20:28)
[2024-05-22] MEDS: Ascorbic Acid 500 MG Tablet PO ×2 (08:15→17:28)
[2024-05-22] MEDS: Lansoprazole 15 MG Capsule.DR 30 MG PO (08:15)
[2024-05-22] MEDS: APIXABAN 2.5 MG TABLET (WCH) PO ×2 (08:15→20:27)
[2024-05-22] MEDS: oxyCODONE 5 MG Tablet PO ×2 (08:28→20:26)
[2024-05-22] MEDS: Pregabalin 50 MG Capsule 200 MG PO ×2 (09:38→20:30)
[2024-05-22] MEDS: Buprenorphine 10 MCG PATCH.TDWK 1 PATCH TD (09:38)
--- NOTE | 2024-05-22 10:00 | RAD_ITS ---
INDICATION: cough EXAMINATION/TECHNIQUE: X-RAY - XR Chest 2 Views COMPARISON: No relevant prior comparison study available FINDINGS: LINES/DEVICES: None. LUNGS: No consolidation, edema or effusion. No pneumothorax. MEDIASTINUM AND CARDIOVASCULAR STRUCTURES: Cardiac silhouette not enlarged. Central airways and mediastinal contour are unremarkable. BONES AND SOFT TISSUES: Fusion of the lower cervical spine with plate and screws. RAD/Chest PA and Lateral IMPRESSION: No radiographic evidence of acute cardiopulmonary disease. Electronically Signed: Venancio Barkley MD at 12:13 EST ,
--- NOTE | 2024-05-22 10:32 | REHABEVAL_ITS ---
Admission Information Primary Diagnosis:: Debility secondary to right hip fracture Status Changes from Prescreening?: No changes Identified Actual Problem List:: Falls, Skin Intergrity, Pain, ALteration in Cmfrt, Cognitve Impr/Memory Loss, Depression, Bladder Incontinence (Urine retention with incontinence usually at night), Bowel, Constipation, Alteration in Sleep, Mobility Impaired, Self Care Deficit, Alteration/ Air Exchange and Alteration- Leisure Activ. Potential Problem List:: DVT, Bleeding, Infection, UTI, Aspiration, Falls, Skin Integrity and Depression Risk of Complications DVT: ELIANA Talbert and - (Apixaban 2.5 mg twice daily) Bleeding: Monitor Lab Values, Nursing to Teach Precautions for anti-coagulation therapy., Wound, if applicable, to be assessed every shift. and Stroke patients assessed for lethargy or change in status. Infection: Clinical Staff to Monitor for S/S of infection: and S/S of infection include fever, redness, warmth, etc. Urinary Tract Infection: Monitor for frequency, burning, discomfort, or incontinence. and Nursing will obtain urine sample for urinalysis and C&S when ordered. Aspiration: Clinical staff will monitor for coughing, drooling, congestion., Speech will evaluate swallowing and dsyphasia. and Nursing will monitor patient swallowing during meals. Falls: Patient will be evaluated for Fall Precautions and Patient will be placed on Fall Precautions as indicated per protocol. Skin Breakdown: Nursing will assess skin daily using assessment tool. and Nursing will place on Skin Breakdown Precautions as indicated. Pain: Clinical staff will assess patient's pain level per protocol., Medications will be given, if needed, and the pain level reassessed. and Other methods: Massage, distraction, decrease stimulus, etc. used PRN. Plan of Care Patient requires physician specializing in physical medicine and rehab oversight to provide close medical supervision of rehab issues including: Pain Management, Sleep Problems, Bowel and Bladder, Medical and co-morbidity Management, DVT prophylaxis, Rehabilitation Leadership and Coordination of treatment team Patient needs Physical Therapy: For a minimum of 1 hour and At least 5 out of 7 days Patient needs Physical Therapy to improve:: Mobility, Strengthening, Transfers, Stretching, ROM, Endurance, Stairs, Gait and Balance Patient needs Occupational Therapy: For a minimum of 1 hour and At least 5 out of 7 days Patient needs Occupational Therapy to improve ADL's incl.: Eating, Grooming, Bathing, Dressing, Toileting, Toilet transfers, Community Reintegration, Higher functioning activities, Household tasks, Adaptive Equipment, Splinting and Other activities as determined Patient requires speech therapy: For a minimum of 1 hour and At least 5 out of 7 days Patient requires speech therapy for: Swallowing, Cognition, Language Skills and Compensatory Strategies Patient requires 24/ Rehabilitation Nursing for: Pain Issues, Identifying and preventing risk factors, Monitoring and reporting current medical conditions, Assisting with ambulation, transfer, and all ADL's, Teaching patients about disease process and medications, Family teaching, Providing safe environment, Bowel and Bladder Issues, Skin integrity and Medication Management Patient needs Physician Liaison/ Case Management for: Discharge Planning, Arranging Home Equipment or Services and Family Interventions Patient needs Dietary and Nutrition Services for: Adequate Nutrition, Nutritional Supplements and Nutritional Education Goals Goals Patient will remain: free from falls Patient will perform eating at: MOD I level of assist. Patient will perform bed mobility at: MOD I level of assist. Patient will complete transfers from bed to chair at: MOD I level of assist. Patient will ambulate: - (20 feet with a wheeled walker at contact-guard assist while maintaining toe-touch weightbearing on various surfaces.) Patient will complete upper body dressing at: - (Set up) Patient will complete lower body dressing at: - (Supervision with adaptive equipment as needed) Patient will complete toilet transfer at: - (Supervision) Patient will complete toileting at: - (Supervision) Patient will perform bathing at: - (He will complete upper body bathing at set up and lower body bathing and supervision with adaptive ointment as needed.) Patient will perform Tub/Shower transfer at: - (Supervision using DME as needed) Patient will complete grooming at: - (Set up while standing at the sink) Patient will achieve: - Patient will have pain level of: of 3 or less Patient's skin will: remain intact Patient will receive: adequate nutrition. Discharge Planning Pt Prognosis for Sig. Practical Improv. w/in Reasonable Time: Good Estimated Length of stay (days): 21 Anticipated D/C Destination: Home with Home Health Was Preadmission Assessment Accurate?: Yes
[2024-05-22] MEDS: Ferrous Sulfate 325 MG Tablet PO (12:08)
[2024-05-22] MEDS: Fluticasone/Salmeterol 232-14 Inhaler 1 PUFF INHALATION ×2 (12:09→20:31)
[2024-05-22] MEDS: Carvedilol 6.25 MG Tablet PO (12:09)
[2024-05-22] MEDS: Venlafaxine XR 75 MG Capsule PO (12:09)
[2024-05-22 12:56] LABS: Mucous, Urine 0 SEEN /hpf (<or=2+)
[2024-05-22 12:59] LABS: Color, Urine Yellow (Yellow); Glucose, Dipstick Normal (Normal); Ketone-Dipstick 5 mg/dl (Negative); Leukocyte Esterase-Dipstick 25 /ul (Negative); Nitrite-Dipstick Negative (Negative); Occult Blood-Urine 10 /ul (Negative); Protein-Dipstick 30 mg/dl (Negative); Specific Gravity, Urine 1.015 (1.002-1.030); Urine Bilirubin Dipstick Negative (Negative); Urine Clarity Clear (Clear); Urine Urobilinogen 1 mg/dl (Normal)
[2024-05-22 13:06] LABS: Red Blood Cells-Urine 5-10 SEEN /hpf (0-5); White Blood Cells 0-5 SEEN /hpf (0-5)
[2024-05-22 13:07] LABS: Bacteria 2+ /hpf (None Seen); Squamous Epithelial Cells - UA 0-5 SEEN /hpf (0-5)
--- NOTE | 2024-05-22 16:46 | NURSING ---
pt attempted to get OOB and out of recliner several times today. pt putting bed side rails down. Pt continually educated on the need to use call light and the need to have staff present for transfers for his safety. Pt voiced understanding but continued to attempt to self transfer. This nurse entered pt's room to find him attempting to move locked recliner around the room using is effected leg. educated pt on the risk of reinjury, pt voiced understanding. Pt moved to room closer to nurses station. Family Notified.
[2024-05-22 17:31] VITALS: BP 122/76; PULSE 105; RESP 16; TEMP 36.4; O2SAT 92
[2024-05-22] MEDS: Carvedilol 6.25 MG Tablet 18.75 MG PO (20:26)
[2024-05-22] MEDS: MELATONIN 3 MG TABLET PO (20:26)
[2024-05-22] MEDS: Tamsulosin HCl 0.4 MG Capsule 0.8 MG PO (20:27)
[2024-05-22] MEDS: Atorvastatin Calcium 80 MG Tablet PO (20:28)
[2024-05-23 06:00] VITALS: BP 158/60; PULSE 82; RESP 18; TEMP 36.6; O2SAT 94
[2024-05-23 07:28] VITALS: O2SAT 92
[2024-05-23] MEDS: Senna/Docusate Sodium 1 Tablet 2 TABLET PO ×2 (08:19→21:49)
[2024-05-23] MEDS: Fluticasone/Salmeterol 232-14 Inhaler 1 PUFF INHALATION ×2 (08:19→21:48)
[2024-05-23] MEDS: metFORMIN HCl 500 MG Tablet PO (08:20)
[2024-05-23] MEDS: Ascorbic Acid 500 MG Tablet PO ×2 (08:20→17:21)
[2024-05-23] MEDS: Venlafaxine XR 75 MG Capsule 225 MG PO (08:20)
[2024-05-23] MEDS: Lansoprazole 15 MG Capsule.DR 30 MG PO (08:20)
[2024-05-23] MEDS: APIXABAN 2.5 MG TABLET (WCH) PO ×2 (08:20→21:50)
[2024-05-23] MEDS: Multivitamins,Therapeutic Tablet 1 TABLET PO (08:21)
[2024-05-23] MEDS: Aspirin E.C. 81 MG Tablet PO (08:21)
[2024-05-23] MEDS: Polyethylene Glycol 3350 17 GM PACKET PO (08:22)
[2024-05-23] MEDS: OXcarbazepine 150 MG Tablet PO ×2 (08:22→21:48)
[2024-05-23] MEDS: Carvedilol 6.25 MG Tablet 18.75 MG PO ×2 (08:22→21:51)
[2024-05-23] MEDS: Pregabalin 50 MG Capsule 200 MG PO ×2 (09:24→21:48)
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
[2024-05-23] MEDS: Ferrous Sulfate 325 MG Tablet PO (11:54)
[2024-05-23] MEDS: Acetaminophen 500 MG Tablet 1000 MG PO ×2 (13:20→21:48)
[2024-05-23 17:39] VITALS: BP 115/52; PULSE 89; RESP 18; TEMP 37; O2SAT 99
--- NOTE | 2024-05-23 18:34 | CASEMGMT ---
Social Work SW attempted to meet with pt twice on this date to complete assessment. Pt sleeping soundly during both attempts and SW unable to wake to complete assessment. SW to revisit tomorrow. JON Leung
[2024-05-23] MEDS: Magnesium Hydroxide 30 ML UDC PO (18:48)
[2024-05-23] MEDS: Tamsulosin HCl 0.4 MG Capsule 0.8 MG PO (21:49)
[2024-05-23] MEDS: Atorvastatin Calcium 80 MG Tablet PO (21:49)
[2024-05-23] MEDS: MELATONIN 3 MG TABLET PO (21:50)
[2024-05-23] MEDS: oxyCODONE 5 MG Tablet PO (21:51)
[2024-05-24] MEDS: cycloBENZAPRine HCl 10 MG Tablet PO ×2 (02:09→22:43)
--- NOTE | 2024-05-24 04:30 | NURSING ---
Pt has attempted several times to void during the night, c/o discomfort, bladder scan showed 270ml, corona placed per order using sterile technique, pt tolerated well, 350ml dark amauri urine returned, sent for ua and cx per order
[2024-05-24 04:52] LABS: Red Blood Cells-Urine 0 SEEN /hpf (0-5)
[2024-05-24 05:01] LABS: Color, Urine Yellow (Yellow); Glucose, Dipstick Normal (Normal); Ketone-Dipstick Negative (Negative); Leukocyte Esterase-Dipstick 100 /ul (Negative); Nitrite-Dipstick Negative (Negative); Occult Blood-Urine Negative /ul (Negative); Protein-Dipstick 30 mg/dl (Negative); Specific Gravity, Urine 1.025 (1.002-1.030); Urine Bilirubin Dipstick Negative (Negative); Urine Clarity Clear (Clear); Urine Urobilinogen Normal (Normal)
[2024-05-24 05:05] VITALS: BP 139/68; PULSE 88; RESP 20; TEMP 36.5; O2SAT 93
[2024-05-24 05:22] VITALS: BMI 35.6
[2024-05-24] MEDS: Modafinil 200 MG Tablet PO (05:26)
[2024-05-24] MEDS: Acetaminophen 500 MG Tablet 1000 MG PO ×3 (05:26→22:43)
[2024-05-24 05:33] LABS: White Blood Cells 50-100 SEEN /hpf (0-5)
[2024-05-24 05:34] LABS: Bacteria 3+ /hpf (None Seen); Fine Granular Cast- Urine 0-5 SEEN /lpf (0-5); Hyaline Cast 0-5 SEEN /lpf (0-5); Mucous, Urine 2+ /hpf (<or=2+); Squamous Epithelial Cells - UA 0-5 SEEN /hpf (0-5)
[2024-05-24 07:35] VITALS: O2SAT 94
[2024-05-24 07:37] VITALS: O2SAT 93
[2024-05-24] MEDS: metFORMIN HCl 500 MG Tablet PO (08:38)
[2024-05-24] MEDS: Ascorbic Acid 500 MG Tablet PO ×2 (08:39→17:15)
[2024-05-24] MEDS: Carvedilol 6.25 MG Tablet 18.75 MG PO ×2 (08:40→22:44)
[2024-05-24] MEDS: Venlafaxine XR 75 MG Capsule 225 MG PO (08:40)
[2024-05-24] MEDS: APIXABAN 2.5 MG TABLET (WCH) PO ×2 (08:41→22:44)
[2024-05-24] MEDS: Lansoprazole 15 MG Capsule.DR 30 MG PO (08:41)
[2024-05-24] MEDS: Senna/Docusate Sodium 1 Tablet 2 TABLET PO ×2 (08:41→22:44)
[2024-05-24] MEDS: Fluticasone/Salmeterol 232-14 Inhaler 1 PUFF INHALATION ×2 (08:41→22:45)
[2024-05-24] MEDS: OXcarbazepine 150 MG Tablet PO ×2 (08:42→22:43)
[2024-05-24] MEDS: Polyethylene Glycol 3350 17 GM PACKET PO (08:43)
[2024-05-24] MEDS: Multivitamins,Therapeutic Tablet 1 TABLET PO (09:25)
[2024-05-24] MEDS: Aspirin E.C. 81 MG Tablet PO (09:25)
[2024-05-24 11:03] VITALS: O2SAT 96
[2024-05-24] MEDS: Pregabalin 50 MG Capsule 200 MG PO ×2 (11:07→22:43)
[2024-05-24] MEDS: Ferrous Sulfate 325 MG Tablet PO (11:08)
--- NOTE | 2024-05-24 13:30 | NURSING ---
Received return call from the office of CHARLEY Mortensen pt may have his farrukh removed 14 days after surgery.
[2024-05-24] MEDS: Bisacodyl 10 MG Suppository RC (15:17)
[2024-05-24 18:00] VITALS: BP 132/76; PULSE 90; RESP 17; TEMP 37.1; O2SAT 94
[2024-05-24] MEDS: MELATONIN 3 MG TABLET PO (22:44)
[2024-05-24] MEDS: oxyCODONE 5 MG Tablet PO (22:44)
[2024-05-24] MEDS: Atorvastatin Calcium 80 MG Tablet PO (22:44)
[2024-05-24] MEDS: Tamsulosin HCl 0.4 MG Capsule 0.8 MG PO (22:45)
[2024-05-25] MEDS: Clobetasol Propionate 0.05% Ointment 1 APPLIC TOPICAL ×2 (02:40→15:43)
[2024-05-25 06:00] VITALS: BP 142/65; PULSE 90; RESP 17; TEMP 36.5; O2SAT 93
[2024-05-25] MEDS: Modafinil 200 MG Tablet PO (06:48)
[2024-05-25] MEDS: Acetaminophen 500 MG Tablet 1000 MG PO ×3 (06:48→22:20)
[2024-05-25 07:40] VITALS: O2SAT 93
[2024-05-25] MEDS: Carvedilol 6.25 MG Tablet 18.75 MG PO ×2 (08:13→22:13)
[2024-05-25] MEDS: Ascorbic Acid 500 MG Tablet PO ×2 (08:14→15:43)
[2024-05-25] MEDS: Venlafaxine XR 75 MG Capsule 225 MG PO (08:14)
[2024-05-25] MEDS: metFORMIN HCl 500 MG Tablet PO (08:14)
[2024-05-25] MEDS: Aspirin E.C. 81 MG Tablet PO (08:14)
[2024-05-25] MEDS: Multivitamins,Therapeutic Tablet 1 TABLET PO (08:14)
[2024-05-25] MEDS: OXcarbazepine 150 MG Tablet PO ×2 (11:10→22:14)
[2024-05-25] MEDS: APIXABAN 2.5 MG TABLET (WCH) PO ×2 (11:10→22:12)
[2024-05-25] MEDS: Senna/Docusate Sodium 1 Tablet 2 TABLET PO ×2 (11:10→22:20)
[2024-05-25] MEDS: Lansoprazole 15 MG Capsule.DR 30 MG PO (11:10)
[2024-05-25] MEDS: Pregabalin 50 MG Capsule 200 MG PO ×2 (11:14→22:20)
[2024-05-25] MEDS: Fluticasone/Salmeterol 232-14 Inhaler 1 PUFF INHALATION ×2 (11:15→22:20)
[2024-05-25 18:50] VITALS: BP 138/100; PULSE 90; RESP 16; TEMP 36.9; O2SAT 90
[2024-05-25 19:37] VITALS: PULSE 90
[2024-05-25] MEDS: hydrALAZINE 25 MG Tablet PO (19:37)
[2024-05-25] MEDS: oxyCODONE 5 MG Tablet PO (19:37)
[2024-05-25] MEDS: cycloBENZAPRine HCl 10 MG Tablet PO (19:37)
[2024-05-25 22:00] VITALS: RESP 16; O2SAT 89
[2024-05-25] MEDS: Tamsulosin HCl 0.4 MG Capsule 0.8 MG PO (22:11)
[2024-05-25] MEDS: Atorvastatin Calcium 80 MG Tablet PO (22:11)
[2024-05-25] MEDS: MELATONIN 3 MG TABLET PO (22:15)
[2024-05-26 04:57] VITALS: BP 134/81; PULSE 86; RESP 16; TEMP 36.6; O2SAT 96
[2024-05-26] MEDS: Modafinil 200 MG Tablet PO (06:39)
[2024-05-26] MEDS: Acetaminophen 500 MG Tablet 1000 MG PO ×3 (06:39→22:43)
[2024-05-26] MEDS: Venlafaxine XR 75 MG Capsule 225 MG PO (07:32)
[2024-05-26] MEDS: cycloBENZAPRine HCl 10 MG Tablet PO (07:32)
[2024-05-26] MEDS: Clobetasol Propionate 0.05% Ointment 1 APPLIC TOPICAL (07:33)
[2024-05-26] MEDS: metFORMIN HCl 500 MG Tablet PO (07:33)
[2024-05-26] MEDS: Carvedilol 6.25 MG Tablet 18.75 MG PO ×2 (07:33→22:39)
[2024-05-26] MEDS: Multivitamins,Therapeutic Tablet 1 TABLET PO (07:33)
[2024-05-26] MEDS: Ascorbic Acid 500 MG Tablet PO ×2 (07:33→17:57)
[2024-05-26] MEDS: Aspirin E.C. 81 MG Tablet PO (07:33)
[2024-05-26 07:34] VITALS: O2SAT 94
[2024-05-26 07:40] VITALS: BP 166/61; PULSE 76
[2024-05-26] MEDS: Lansoprazole 15 MG Capsule.DR 30 MG PO (11:11)
[2024-05-26] MEDS: OXcarbazepine 150 MG Tablet PO ×2 (11:11→22:43)
[2024-05-26] MEDS: Pregabalin 50 MG Capsule 200 MG PO ×2 (11:11→22:41)
[2024-05-26] MEDS: APIXABAN 2.5 MG TABLET (WCH) PO (11:11)
[2024-05-26] MEDS: Fluticasone/Salmeterol 232-14 Inhaler 1 PUFF INHALATION ×2 (11:13→22:40)
[2024-05-26] MEDS: Senna/Docusate Sodium 1 Tablet 2 TABLET PO ×2 (12:47→22:42)
[2024-05-26] MEDS: levoFLOXacin 500 MG Tablet PO (12:48)
[2024-05-26 18:00] VITALS: BP 118/73; PULSE 92; RESP 16; TEMP 36.6; O2SAT 93
--- NOTE | 2024-05-26 21:46 | NURSING ---
[address] Stone that patient continues to have gross hematuria in corona bag. Discussed if patient should receive Eliquis tonight due to bleeding. New orders received.
[2024-05-26] MEDS: Tamsulosin HCl 0.4 MG Capsule 0.8 MG PO (22:40)
[2024-05-26] MEDS: Atorvastatin Calcium 80 MG Tablet PO (22:41)
[2024-05-26] MEDS: MELATONIN 3 MG TABLET PO (22:42)
[2024-05-27 00:21] VITALS: BP 152/78
[2024-05-27 06:20] VITALS: BP 168/67; PULSE 88; RESP 16; TEMP 36.7; O2SAT 98
[2024-05-27] MEDS: levoFLOXacin 250 MG Tablet PO (06:20)
[2024-05-27] MEDS: Modafinil 200 MG Tablet PO (06:20)
[2024-05-27] MEDS: Acetaminophen 500 MG Tablet 1000 MG PO ×3 (06:21→20:27)
[2024-05-27 06:59] VITALS: O2SAT 97
[2024-05-27] MEDS: Carvedilol 6.25 MG Tablet 18.75 MG PO ×2 (07:02→20:29)
[2024-05-27] MEDS: Fluticasone/Salmeterol 232-14 Inhaler 1 PUFF INHALATION ×2 (07:52→20:27)
[2024-05-27] MEDS: Senna/Docusate Sodium 1 Tablet 2 TABLET PO ×2 (07:52→20:28)
[2024-05-27] MEDS: Lansoprazole 15 MG Capsule.DR 30 MG PO (07:52)
[2024-05-27] MEDS: Aspirin E.C. 81 MG Tablet PO (07:52)
[2024-05-27] MEDS: Multivitamins,Therapeutic Tablet 1 TABLET PO (07:52)
[2024-05-27] MEDS: Polyethylene Glycol 3350 17 GM PACKET PO (07:53)
[2024-05-27] MEDS: Ascorbic Acid 500 MG Tablet PO ×2 (07:53→16:51)
[2024-05-27] MEDS: OXcarbazepine 150 MG Tablet PO ×2 (07:53→20:28)
[2024-05-27] MEDS: metFORMIN HCl 500 MG Tablet PO (07:53)
[2024-05-27] MEDS: Venlafaxine XR 75 MG Capsule 225 MG PO (07:53)
[2024-05-27] MEDS: Pregabalin 50 MG Capsule 200 MG PO ×2 (07:55→20:28)
--- NOTE | 2024-05-27 10:45 | PN_ITS ---
Subjective Subjective Genaro was seen on team rounds today. His Fozia was present in the room. Afebrile VSS -blood pressure over the weekend has ranged from 118/73 to 168/67. Diastolics are most often within goal but systolics are most often above goal. Maintaining appropriate oxygen saturation on RA heart rate has been within normal limits. Oral intake - FOOD good FLUIDS fair Discussed with nursing - developed hematuria over the weekend. Nursing tells me that he has been pulling on the catheter. Reviewed the THERAPY notes Medication list reviewed. Eliquis was held last night and this AM due to hematuria. Urine analysis was repeated on 05/24/2024 and the WBCs were 50-100, up from 0-5 on 05/22/2024. There was 3+ bacteria. Urine culture from 05/24/2024 grew 50,000 80,000 colonies of Klebsiella pneumoniae and 50,000 80,000 colonies of Proteus mirabilis. He was started on Levaquin on 05/26/2024 Denies lightheadedness, shortness of breath, cough, chest pain, palpitations, nausea/vomiting/abdominal pain, suprapubic pain and calf tenderness. Objective Data Objective Data Vital Signs: Vital Signs Temp Pulse Resp BP Pulse Ox O2 Del Method O2 Flow Rate 98.0 F 88 16 168/67 H 97 Nasal Cannula 2 05/27/24 06:20 05/27/24 06:20 05/27/24 06:20 05/27/24 06:20 05/27/24 06:59 05/27/24 06:59 05/27/24 09:18 Oxygen Flow Rate (L/min) 2 Oxygen Delivery Method Nasal Cannula Weight: 227 lb 8.273 oz Body Mass Index (BMI) 35.6 Intake & Output: Intake and Output for Last 24 Hours 05/25/24 05/26/24 05/27/24 23:59 23:59 23:59 Intake Total 1170 / 1170 1200 / 1200 600 / 600 Output Total 1800 / 1800 800 / 800 650 / 650 Balance -630 / -630 400 / 400 -50 / -50 Lab / Micro Data 05/28/24 05:40 05/28/24 05:40 Micro: Microbiology 05/24/24 04:30 Urine, Catheterized Urine Culture - Final Klebsiella pneumoniae sp pneum Proteus mirabilis 05/22/24 12:36 Urine Catheter - Catheter Urine Culture - Final Culture exhibits no growth. Physical Exam Const alert, oriented x3 and no apparent distress Resp normal respiratory effort Resp Narrative: CTA anterior and lateral. Not tachypneic. No accessory muscle use. Effort and Inspection: able to speak in complete sentences Cardio regular rate, regular rhythm, no murmurs and no gallops Cardio Narrative: No ectopy GI normal to inspection, nondistended, normoactive bowel sounds GI Narrative: No guarding with palpation Extremity no calf tenderness and no pedal edema Skin Skin Narrative: No rashes Assessment & Plan Assessment/Plan (1) Debility: (2) Fall: QUALIFIERS: Encounter type: subsequent encounter Qualified Code(s): W19.XXXD - Unspecified fall, subsequent encounter (3) Intertrochanteric fracture of right femur: QUALIFIERS: Encounter type: subsequent encounter Fracture type: c losed Fracture alignment: displaced (4) History of open reduction and internal fixation (ORIF) procedure: (5) Acute blood loss anemia: (6) Hyponatremia: (7) Insomnia: QUALIFIERS: Insomnia type: unspecified Qualified Code(s): G47.00 - Insomnia, unspecified (8) Central sleep apnea: (9) Right hemiparesis: (10) Dysarthria as late effect of cerebrovascular accident (CVA): (11) Mild cognitive impairment: (12) Dysphagia: QUALIFIERS: Dysphagia type: unspecified Qualified Code(s): R13.10 - Dysphagia, unspecified (13) Glucose intolerance (impaired glucose tolerance): (14) HTN (hypertension): QUALIFIERS: Hypertension type: primary hypertension Qualified Code(s): I10 - Essential (primary) hypertension (15) Dysarthria: (16) Acute cystitis with hematuria: PLAN: Plan 1. Continue therapy 2. Continue Levaquin for a total of 7 days 3. Continue to hold Eliquis until hematuria resolves. SCDs were ordered. 4. Strongly encouraged increased fluid intake. 5. Recheck a BMP and H&H in a.m. Charges/Coding Visit Charges Inpatient E&M: 80382 Subs Hosp L2
[2024-05-27 12:08] VITALS: BP 159/74; PULSE 95
--- NOTE | 2024-05-27 13:07 | CASEMGMT ---
Social Work Team met with patient and at bedside. PT/OT/ST/SN/ discussed pt's progress. SW educated to Medicare approval of 18 days with DC 2/2. Patient is TTWB, difficulty maintaining, requires continuos cues. Pt has cognitive impairment as well, which impacts PT/OT. OT also requested 's participation in next ADL d/t pt's inappropriateness during that task; agreed. Nursing to follow up with surgeon on WBS as Team agrees if pt is WBAT, pt can return home with . Offered therapy training with closer to DC. has no other concerns for DC home. Pt is new on O2, and has suspected sleep apnea. SW will continue to follow for DC planning. Will ReTeam weekly. BRIANNA GillespieW
--- NOTE | 2024-05-27 13:17 | CASEMGMT ---
Social Work SW inquired for to provide copies of pt's advanced directives. agreed. Fiordaliza Vásuqez, CUSTOMER SUCCESS ASSOCIATE [employer] STRAINER
[2024-05-27 17:30] VITALS: BP 149/76; PULSE 90; RESP 18; TEMP 36.6; O2SAT 97
[2024-05-27] MEDS: Atorvastatin Calcium 80 MG Tablet PO (20:27)
[2024-05-27] MEDS: MELATONIN 3 MG TABLET PO (20:28)
[2024-05-27] MEDS: Tamsulosin HCl 0.4 MG Capsule 0.8 MG PO (20:29)
[2024-05-27] MEDS: APIXABAN 2.5 MG TABLET (WCH) PO (22:31)
[2024-05-27 23:29] VITALS: O2SAT 92
--- NOTE | 2024-05-27 23:37 | CPS ---
[2329] Pt. not compliant with wearing his NIV tonight. Attempted 3 times to get pt. comfortable with nasal mask, but he kept taking the mask off after just a few moments. 2L NC placed back into pt.'s nose at this time.
--- NOTE | 2024-05-28 01:00 | NURSING ---
Pt has refused to wear his cpap this evening, RT attempted and this RN attempted as well, pt states it is not comfortable and does not want to wear it tonight.
[2024-05-28 05:03] VITALS: BP 160/60; PULSE 86; RESP 16; TEMP 36.4; O2SAT 97
[2024-05-28] MEDS: Modafinil 200 MG Tablet PO (05:21)
[2024-05-28] MEDS: levoFLOXacin 250 MG Tablet PO (05:21)
[2024-05-28] MEDS: Acetaminophen 500 MG Tablet 1000 MG PO ×3 (05:21→20:30)
[2024-05-28 06:06] LABS: Hematocrit 31.3 % (40-54)
[2024-05-28 06:32] LABS: Anion Gap 2 (5-15); BUN 12 mg/dL (7-18); BUN/Creat Ratio 12.5 RATIO (10-20); Chloride 102 mmol/L (98-107); Creatinine, Serum 0.96 mg/dL (0.70-1.30); EST Glomerular Filtration Rate 83 mL/min (>60); Est Glom Filt Rate - Afr Amer 100 mL/min (>60); Estimated Creatinine Clearance 84.31 ml/min; Glucose 129 mg/dL (74-106); Sodium Level 134 mmol/L (136-145)
[2024-05-28 06:50] VITALS: O2SAT 97
--- NOTE | 2024-05-28 07:45 | PN_ITS ---
Subjective Subjective Afebrile Systolic blood pressure is consistently elevated above goal. Diastolic is always within normal limits. Heart rate is within normal limits. No bradycardia, no tachycardia. Refusing CPAP at night. He is placed on 2 L of nasal O2 while sleeping and the pulse ox ranges from 92 to 97%. All lab from this morning was personally reviewed. Hemoglobin is 10, down from 11.3 on 05/22/2024. Sodium is stable at 134 and the potassium is stable at 4.0. The BUN is 12 with a creatinine of 0.96 which is better than the baseline for the past year. Calcium is normal. Fasting blood sugar is 129. Hemoglobin A1c in January 2024 was 5.7. Denies lightheadedness, chest pain, shortness of breath, nausea/vomiting/abdominal pain, calf pain. Urine in the Partida bag today is yellow and clear. Objective Data Objective Data Vital Signs: Vital Signs Temp Pulse Resp BP Pulse Ox O2 Del Method O2 Flow Rate 97.5 F L 86 16 160/60 H 97 Nasal Cannula 2 05/28/24 05:03 05/28/24 05:03 05/28/24 05:03 05/28/24 05:03 05/28/24 05:03 05/28/24 05:03 05/28/24 05:03 Oxygen Flow Rate (L/min) 2 Oxygen Delivery Method Nasal Cannula Weight: 227 lb 8.273 oz Body Mass Index (BMI) 35.6 Intake & Output: Intake and Output for Last 24 Hours 05/26/24 05/27/24 05/28/24 23:59 23:59 23:59 Intake Total 1200 / 1200 1440 / 1620 330 / 330 Output Total 800 / 800 1150 / 1450 950 / 950 Balance 400 / 400 290 / 170 -620 / -620 Lab / Micro Data 05/28/24 05:40 05/28/24 05:40 Labs: Laboratory Results - last 24 hr 05/28/24 05:40: Hgb 10.0 L, Hct 31.3 L, Sodium 134 L, Potassium 4.0, Chloride 102, Carbon Dioxide 31.0, Anion Gap 2 L, BUN 12, Creatinine 0.96, Estim Creat Clear Calc 84.31, Est GFR (MDRD) Af Amer 100, Est GFR (MDRD) Non-Af 83, BUN/Creatinine Ratio 12.5, Glucose 129 H, Calcium 9.0 Micro: Microbiology 05/24/24 04:30 Urine, Catheterized Urine Culture - Final Klebsiella pneumoniae sp pneum Proteus mirabilis 05/22/24 12:36 Urine Catheter - Catheter Urine Culture - Final Culture exhibits no growth. Physical Exam Const alert and no apparent distress General Appearance: cooperative HEENT HEENT Narrative: Significant dysarthria secondary to prior stroke and to edentulous state making it difficult for me to understand him Mouth: dry mucous membranes Resp normal respiratory effort and clear to auscultation bilaterally Effort and Inspection: Negative for tachypneic or labored Cardio regular rate, regular rhythm and no gallops GI normal to inspection, nondistended, normoactive bowel sounds and soft to palpation GI Narrative: No guarding with palpation Extremity no calf tenderness General Extremity: Negative for edema Skin Rashes: no rashes Wound Narrative: Will examine the incision when the Partida is pulled and he is undressed. Psych Psych Narrative: Has not been setting off the alarms trying to get out of bed. He has been cooperative with therapy. Sleeping well at night and very alert during the day since the Provigil was started. Assessment & Plan Assessment/Plan (1) Debility: (2) Fall: QUALIFIERS: Encounter type: subsequent encounter Qualified Code(s): W19.XXXD - Unspecified fall, subsequent encounter (3) Intertrochanteric fracture of right femur: QUALIFIERS: Encounter type: subsequent encounter Fracture type: c losed Fracture alignment: displaced (4) History of open reduction and internal fixation (ORIF) procedure: (5) Acute blood loss anemia: (6) Hyponatremia: (7) Insomnia: QUALIFIERS: Insomnia type: unspecified Qualified Code(s): G47.00 - Insomnia, unspecified (8) Central sleep apnea: (9) Right hemiparesis: (10) Dysarthria as late effect of cerebrovascular accident (CVA): (11) Mild cognitive impairment: (12) Dysphagia: QUALIFIERS: Dysphagia type: unspecified Qualified Code(s): R13.10 - Dysphagia, unspecified (13) Glucose intolerance (impaired glucose tolerance): (14) HTN (hypertension): QUALIFIERS: Hypertension type: primary hypertension Qualified Code(s): I10 - Essential (primary) hypertension (15) Dysarthria: (16) Acute cystitis with hematuria: PLAN: Due to Klebsiella pneumoniae and Proteus mirabilis. PLAN: Plan 1. Continue therapy 2. Increase Coreg to 25 mg p.o. twice daily 3. Check a Hemoccult stool. 4. Discontinue Partida catheter for a voiding trial today. Partida catheter was placed for urine retention. He takes Flomax 0.8 mg daily. 5. I placed a call to Dr. Mcfarlane's office and requested to speak with her. I was connected to the nurse triage line and I left a VM and my phone number. I would like to discuss Genaro's wt bearing status. Today is POD # 13. Genaro is unable to maintain TTWB on the RLE due to prior stroke, poor memory and cognitive dysfunction. If the weight bearing status is not advanced he will not be able to go home at [place] from rehab because he needs to be able to stand and ambulate for his to manage his care at home. He was to be TTWB for 2 weeks and that will conclude tomorrow. would like to get recommendations from Dr. Mcfarlane. 6. Continue Levaquin. Charges/Coding Visit Charges Inpatient E&M: 83576 [facility] Hosp L1
[2024-05-28] MEDS: Lansoprazole 15 MG Capsule.DR 30 MG PO (09:25)
[2024-05-28] MEDS: Polyethylene Glycol 3350 17 GM PACKET PO (09:25)
[2024-05-28] MEDS: metFORMIN HCl 500 MG Tablet PO (09:25)
[2024-05-28] MEDS: Ascorbic Acid 500 MG Tablet PO ×2 (09:25→17:19)
[2024-05-28] MEDS: Aspirin E.C. 81 MG Tablet PO (09:26)
[2024-05-28] MEDS: Senna/Docusate Sodium 1 Tablet 2 TABLET PO (09:26)
[2024-05-28] MEDS: Multivitamins,Therapeutic Tablet 1 TABLET PO (09:26)
[2024-05-28] MEDS: Venlafaxine XR 75 MG Capsule 225 MG PO (09:26)
[2024-05-28] MEDS: Fluticasone/Salmeterol 232-14 Inhaler 1 PUFF INHALATION ×2 (09:26→20:30)
[2024-05-28] MEDS: APIXABAN 2.5 MG TABLET (WCH) PO ×2 (09:26→20:32)
[2024-05-28] MEDS: Pregabalin 50 MG Capsule 200 MG PO ×2 (09:27→20:31)
[2024-05-28 09:33] VITALS: BP 119/73; PULSE 100
[2024-05-28] MEDS: OXcarbazepine 150 MG Tablet PO ×2 (10:32→20:31)
[2024-05-28] MEDS: Carvedilol 25 MG Tablet PO ×2 (10:32→20:32)
[2024-05-28 18:00] VITALS: BP 147/74; PULSE 101; RESP 17; TEMP 36.9; O2SAT 98
[2024-05-28] MEDS: Atorvastatin Calcium 80 MG Tablet PO (20:30)
[2024-05-28] MEDS: Tamsulosin HCl 0.4 MG Capsule 0.8 MG PO (20:31)
[2024-05-28] MEDS: MELATONIN 3 MG TABLET PO (20:32)
[2024-05-28 20:49] VITALS: BP 159/86; PULSE 97; RESP 20; TEMP 36.6; O2SAT 95
[2024-05-29 06:49] VITALS: BP 168/78; PULSE 93; RESP 20; TEMP 36.8; O2SAT 93
[2024-05-29] MEDS: Modafinil 200 MG Tablet PO (06:55)
[2024-05-29] MEDS: Acetaminophen 500 MG Tablet 1000 MG PO ×3 (06:55→20:56)
[2024-05-29] MEDS: levoFLOXacin 250 MG Tablet PO (06:55)
[2024-05-29] MEDS: Fluticasone/Salmeterol 232-14 Inhaler 1 PUFF INHALATION ×2 (09:44→20:30)
[2024-05-29] MEDS: Venlafaxine XR 75 MG Capsule 225 MG PO (09:45)
[2024-05-29] MEDS: Carvedilol 25 MG Tablet PO ×2 (09:45→20:32)
[2024-05-29] MEDS: Aspirin E.C. 81 MG Tablet PO (09:46)
[2024-05-29] MEDS: metFORMIN HCl 500 MG Tablet PO (09:46)
[2024-05-29] MEDS: Lansoprazole 15 MG Capsule.DR 30 MG PO (09:46)
[2024-05-29] MEDS: Multivitamins,Therapeutic Tablet 1 TABLET PO (09:46)
[2024-05-29] MEDS: APIXABAN 2.5 MG TABLET (WCH) PO ×2 (09:47→20:33)
[2024-05-29] MEDS: Ascorbic Acid 500 MG Tablet PO ×2 (09:47→16:12)
[2024-05-29] MEDS: OXcarbazepine 150 MG Tablet PO ×2 (09:47→20:31)
[2024-05-29] MEDS: Senna/Docusate Sodium 1 Tablet 2 TABLET PO (09:47)
[2024-05-29] MEDS: Pregabalin 50 MG Capsule 200 MG PO ×2 (09:51→20:56)
[2024-05-29] MEDS: Clobetasol Propionate 0.05% Ointment 1 APPLIC TOPICAL (10:06)
[2024-05-29] MEDS: Buprenorphine 10 MCG PATCH.TDWK 1 PATCH TD (11:27)
[2024-05-29 18:00] VITALS: BP 153/79; PULSE 91; RESP 18; TEMP 36.8; O2SAT 93
[2024-05-29] MEDS: Atorvastatin Calcium 80 MG Tablet PO (20:31)
[2024-05-29] MEDS: MELATONIN 3 MG TABLET PO (20:31)
[2024-05-29] MEDS: Tamsulosin HCl 0.4 MG Capsule 0.8 MG PO (20:32)
[2024-05-30] MEDS: levoFLOXacin 250 MG Tablet PO (05:49)
[2024-05-30] MEDS: Modafinil 200 MG Tablet PO (05:49)
[2024-05-30] MEDS: Acetaminophen 500 MG Tablet 1000 MG PO ×3 (05:50→21:19)
[2024-05-30 05:54] VITALS: BP 154/85; PULSE 84; RESP 16; TEMP 36.6; O2SAT 93
[2024-05-30 08:03] VITALS: O2SAT 94
[2024-05-30] MEDS: Multivitamins,Therapeutic Tablet 1 TABLET PO (08:39)
[2024-05-30] MEDS: Ascorbic Acid 500 MG Tablet PO ×2 (08:39→17:31)
[2024-05-30] MEDS: Carvedilol 25 MG Tablet PO ×2 (08:39→21:19)
[2024-05-30] MEDS: Venlafaxine XR 75 MG Capsule 225 MG PO (08:39)
[2024-05-30] MEDS: metFORMIN HCl 500 MG Tablet PO (08:39)
[2024-05-30] MEDS: Aspirin E.C. 81 MG Tablet PO (08:39)
[2024-05-30] MEDS: Lansoprazole 15 MG Capsule.DR 30 MG PO (08:39)
[2024-05-30] MEDS: APIXABAN 2.5 MG TABLET (WCH) PO ×2 (08:39→21:09)
[2024-05-30] MEDS: Fluticasone/Salmeterol 232-14 Inhaler 1 PUFF INHALATION ×2 (08:39→21:12)
[2024-05-30] MEDS: Pregabalin 50 MG Capsule 200 MG PO ×2 (08:40→21:19)
[2024-05-30] MEDS: Senna/Docusate Sodium 1 Tablet 2 TABLET PO ×2 (08:40→21:10)
[2024-05-30] MEDS: OXcarbazepine 150 MG Tablet PO ×2 (08:40→21:11)
--- NOTE | 2024-05-30 09:15 | PCM.PROGNOTE ---
Subjective Subjective Day #5/ Levaquin for acute cystitis. Afebrile VSS -systolic blood pressures remain high despite increase and carvedilol. Maintaining appropriate oxygen saturation on RA Oral intake - FOOD good FLUIDS poor Discussed with nursing - no problems that need addressed. He slept well last night and wore the CPAP all night long. Reviewed the THERAPY notes Medication list reviewed. Carvedilol has been increased to 25 mg twice daily. Now that he is WBAT he is having pain when up and using the WW. He had not taken any oxycodone since 05/25/2024 until today at approximately noon. He denies cough, shortness of breath, chest pain, lightheadedness, palpitations, nausea/vomiting/abdominal pain, dysuria and calf pain. The Partida catheter was removed and the postvoid residuals since that time of ranged from 9 cc to 54 cc. No hematuria. Levaquin will conclude on 06/01/2024. Objective Data Objective Data Vital Signs: Vital Signs Temp Pulse Resp BP Pulse Ox O2 Del Method O2 Flow Rate 97.9 F 84 16 154/85 H 94 Nasal Cannula 2 05/30/24 05:54 05/30/24 05:54 05/30/24 05:54 05/30/24 05:54 05/30/24 08:03 05/30/24 08:03 05/30/24 08:03 Oxygen Flow Rate (L/min) 2 Oxygen Delivery Method Nasal Cannula Weight: 227 lb 8.273 oz Body Mass Index (BMI) 35.6 Intake & Output: Intake and Output for Last 24 Hours 05/28/24 05/29/24 05/30/24 23:59 23:59 23:59 Intake Total 1270 / 1270 480 / 480 Output Total 1450 / 1450 850 / 950 100 / 100 Balance -180 / -180 -370 / -470 -100 / -100 Lab / Micro Data 05/28/24 05:40 05/28/24 05:40 Micro: Microbiology 05/28/24 14:10 Stool Stool Occult Blood (TIGRE) - Final Occult Blood Positive 05/24/24 04:30 Urine, Catheterized Urine Culture - Final Klebsiella pneumoniae sp pneum Proteus mirabilis 05/22/24 12:36 Urine Catheter - Catheter Urine Culture - Final Culture exhibits no growth. Physical Exam Const alert and no apparent distress General Appearance: cooperative HEENT Mouth: dry mucous membranes Resp normal respiratory effort and clear to auscultation bilaterally Effort and Inspection: Negative for tachypneic or labored Cardio regular rate, regular rhythm and no gallops Cardio Narrative: No ectopy GI normal to inspection, nondistended, normoactive bowel sounds and soft to palpation GI Narrative: No guarding with palpation Extremity no calf tenderness General Extremity: Negative for edema Skin Rashes: no rashes Wound Narrative: The hip incisions are intact with no dehiscence, no vivek-incisional erythema and no purulent discharge. Psych Psych Narrative: He is now sleeping well at night and is very alert during the day. He is pleasant and appropriate with me. Assessment & Plan Assessment/Plan (1) Debility: (2) Fall: QUALIFIERS: Encounter type: subsequent encounter Qualified Code(s): W19.XXXD - Unspecified fall, subsequent encounter (3) Intertrochanteric fracture of right femur: QUALIFIERS: Encounter type: subsequent encounter Fracture type: closed Fracture alignment: displaced (4) History of open reduction and internal fixation (ORIF) procedure: (5) Acute blood loss anemia: (6) Hyponatremia: (7) Insomnia: QUALIFIERS: Insomnia type: unspecified Qualified Code(s): G47.00 - Insomnia, unspecified (8) Central sleep apnea: (9) Right hemiparesis: (10) Dysarthria as late effect of cerebrovascular accident (CVA): (11) Mild cognitive impairment: (12) Dysphagia: QUALIFIERS: Dysphagia type: unspecified Qualified Code(s): R13.10 - Dysphagia, unspecified (13) Glucose intolerance (impaired glucose tolerance): (14) HTN (hypertension): QUALIFIERS: Hypertension type: primary hypertension Qualified Code(s): I10 - Essential (primary) hypertension (15) Dysarthria: (16) Acute cystitis with hematuria: PLAN: Plan 1. Continue therapy-weightbearing status was changed to weightbearing as tolerated yesterday 2. Add Procardia XL 30 mg daily to the current drug regimen for better blood pressure control. 3. BMP and H&H in a.m. 4. Schedule 5 mg of Oxycodone at 0700 and 1300 so that he is more comfortable when doing therapy. Charges/Coding Visit Charges Inpatient E&M: 84046 Subs Hosp L1
[2024-05-30] MEDS: NIFEdipine 30 MG Tablet PO (11:48)
[2024-05-30] MEDS: oxyCODONE 5 MG Tablet PO (11:57)
[2024-05-30 11:59] VITALS: BP 119/66; PULSE 89
[2024-05-30 18:00] VITALS: BP 128/82; PULSE 90; RESP 16; TEMP 36.9; O2SAT 91
[2024-05-30] MEDS: Tamsulosin HCl 0.4 MG Capsule 0.8 MG PO (21:09)
[2024-05-30] MEDS: Atorvastatin Calcium 80 MG Tablet PO (21:09)
[2024-05-30] MEDS: MELATONIN 3 MG TABLET PO (21:09)
[2024-05-31] MEDS: Acetaminophen 500 MG Tablet 1000 MG PO ×3 (05:56→21:28)
[2024-05-31 05:57] LABS: Hematocrit 31.7 % (40-54)
[2024-05-31] MEDS: NIFEdipine 30 MG Tablet PO (05:57)
[2024-05-31] MEDS: Modafinil 200 MG Tablet PO (05:57)
[2024-05-31] MEDS: oxyCODONE 5 MG Tablet PO ×2 (05:57→14:02)
[2024-05-31] MEDS: levoFLOXacin 250 MG Tablet PO (05:57)
[2024-05-31] MEDS: Carvedilol 25 MG Tablet PO ×2 (05:57→18:33)
[2024-05-31 06:00] VITALS: BP 168/80; PULSE 94; RESP 18; TEMP 36.4; O2SAT 94
[2024-05-31 06:20] LABS: Anion Gap 3 (5-15); BUN 16 mg/dL (7-18); BUN/Creat Ratio 14.5 RATIO (10-20); Calcium,Total 9.4 mg/dL (8.5-10.1); Chloride 104 mmol/L (98-107); EST Glomerular Filtration Rate 71 mL/min (>60); Est Glom Filt Rate - Afr Amer 86 mL/min (>60); Estimated Creatinine Clearance 73.58 ml/min; Glucose 109 mg/dL (74-106); Sodium Level 138 mmol/L (136-145)
[2024-05-31] MEDS: metFORMIN HCl 500 MG Tablet PO (07:48)
[2024-05-31] MEDS: Aspirin E.C. 81 MG Tablet PO (07:48)
[2024-05-31] MEDS: Multivitamins,Therapeutic Tablet 1 TABLET PO (07:48)
[2024-05-31] MEDS: Venlafaxine XR 75 MG Capsule 225 MG PO (07:49)
[2024-05-31] MEDS: Ascorbic Acid 500 MG Tablet PO (07:49)
[2024-05-31] MEDS: Senna/Docusate Sodium 1 Tablet 2 TABLET PO (07:50)
[2024-05-31] MEDS: APIXABAN 2.5 MG TABLET (WCH) PO ×2 (07:50→21:23)
[2024-05-31] MEDS: Fluticasone/Salmeterol 232-14 Inhaler 1 PUFF INHALATION ×2 (07:50→21:23)
[2024-05-31] MEDS: Lansoprazole 15 MG Capsule.DR 30 MG PO (07:50)
[2024-05-31] MEDS: OXcarbazepine 150 MG Tablet PO ×2 (07:51→21:23)
[2024-05-31 07:57] VITALS: O2SAT 94
[2024-05-31] MEDS: Pregabalin 50 MG Capsule 200 MG PO ×2 (11:16→21:27)
[2024-05-31 18:00] VITALS: BP 136/79; PULSE 84; RESP 16; TEMP 36.8; O2SAT 92
[2024-05-31] MEDS: Atorvastatin Calcium 80 MG Tablet PO (21:23)
[2024-05-31] MEDS: Tamsulosin HCl 0.4 MG Capsule 0.8 MG PO (21:23)
[2024-05-31] MEDS: MELATONIN 3 MG TABLET PO (21:28)
[2024-05-31] MEDS: cycloBENZAPRine HCl 10 MG Tablet PO (22:06)
[2024-06-01 05:53] VITALS: BP 149/75; PULSE 79; RESP 17; TEMP 36.4; O2SAT 92
[2024-06-01] MEDS: Carvedilol 25 MG Tablet PO ×2 (06:11→17:34)
[2024-06-01] MEDS: levoFLOXacin 250 MG Tablet PO (06:12)
[2024-06-01] MEDS: Modafinil 200 MG Tablet PO (06:12)
[2024-06-01] MEDS: Acetaminophen 500 MG Tablet 1000 MG PO ×3 (06:12→22:26)
[2024-06-01] MEDS: NIFEdipine 30 MG Tablet PO (06:56)
[2024-06-01] MEDS: oxyCODONE 5 MG Tablet PO ×2 (06:56→11:31)
[2024-06-01 07:00] VITALS: O2SAT 93
[2024-06-01] MEDS: OXcarbazepine 150 MG Tablet PO ×2 (08:37→22:26)
[2024-06-01] MEDS: Multivitamins,Therapeutic Tablet 1 TABLET PO (08:37)
[2024-06-01] MEDS: Venlafaxine XR 75 MG Capsule 225 MG PO (08:37)
[2024-06-01] MEDS: APIXABAN 2.5 MG TABLET (WCH) PO ×2 (08:38→22:26)
[2024-06-01] MEDS: Fluticasone/Salmeterol 232-14 Inhaler 1 PUFF INHALATION ×2 (08:38→22:26)
[2024-06-01] MEDS: Aspirin E.C. 81 MG Tablet PO (08:38)
[2024-06-01] MEDS: metFORMIN HCl 500 MG Tablet PO (08:38)
[2024-06-01] MEDS: Lansoprazole 15 MG Capsule.DR 30 MG PO (08:40)
[2024-06-01] MEDS: Polyethylene Glycol 3350 17 GM PACKET PO (08:40)
[2024-06-01] MEDS: Pregabalin 50 MG Capsule 200 MG PO ×2 (08:42→22:25)
[2024-06-01] MEDS: Clobetasol Propionate 0.05% Ointment 1 APPLIC TOPICAL (08:50)
[2024-06-01 17:33] VITALS: BP 137/74; PULSE 89; RESP 16; TEMP 36.8; O2SAT 92
[2024-06-01] MEDS: MELATONIN 3 MG TABLET PO (22:26)
[2024-06-01] MEDS: Atorvastatin Calcium 80 MG Tablet PO (22:26)
[2024-06-01] MEDS: Tamsulosin HCl 0.4 MG Capsule 0.8 MG PO (22:26)
[2024-06-01] MEDS: cycloBENZAPRine HCl 10 MG Tablet PO (23:18)
[2024-06-02] MEDS: Modafinil 200 MG Tablet PO (05:35)
[2024-06-02] MEDS: Acetaminophen 500 MG Tablet 1000 MG PO ×3 (05:35→20:45)
[2024-06-02 06:00] VITALS: BP 138/82; PULSE 82; RESP 17; TEMP 36.8; O2SAT 93
[2024-06-02] MEDS: NIFEdipine 30 MG Tablet PO (07:09)
[2024-06-02] MEDS: oxyCODONE 5 MG Tablet PO ×2 (07:09→10:52)
[2024-06-02] MEDS: Carvedilol 25 MG Tablet PO ×2 (07:09→18:20)
[2024-06-02 07:10] VITALS: BP 170/86; PULSE 75
[2024-06-02 07:20] VITALS: O2SAT 94
[2024-06-02] MEDS: Senna/Docusate Sodium 1 Tablet 2 TABLET PO ×2 (08:54→20:52)
[2024-06-02] MEDS: Fluticasone/Salmeterol 232-14 Inhaler 1 PUFF INHALATION ×2 (08:56→20:44)
[2024-06-02] MEDS: metFORMIN HCl 500 MG Tablet PO (08:57)
[2024-06-02] MEDS: Aspirin E.C. 81 MG Tablet PO (08:57)
[2024-06-02] MEDS: Multivitamins,Therapeutic Tablet 1 TABLET PO (08:57)
[2024-06-02] MEDS: Lansoprazole 15 MG Capsule.DR 30 MG PO (10:52)
[2024-06-02] MEDS: Venlafaxine XR 75 MG Capsule 225 MG PO (10:52)
[2024-06-02] MEDS: APIXABAN 2.5 MG TABLET (WCH) PO ×2 (10:53→20:43)
[2024-06-02] MEDS: OXcarbazepine 150 MG Tablet PO ×2 (10:54→20:46)
[2024-06-02] MEDS: Polyethylene Glycol 3350 17 GM PACKET PO (10:54)
[2024-06-02] MEDS: Pregabalin 50 MG Capsule 200 MG PO ×2 (11:11→20:49)
[2024-06-02 17:41] VITALS: BP 146/69; PULSE 84; RESP 16; TEMP 36.5; O2SAT 96
[2024-06-02] MEDS: Magnesium Hydroxide 30 ML UDC PO (18:19)
[2024-06-02] MEDS: cycloBENZAPRine HCl 10 MG Tablet PO (20:42)
[2024-06-02] MEDS: Tamsulosin HCl 0.4 MG Capsule 0.8 MG PO (20:44)
[2024-06-02] MEDS: MELATONIN 3 MG TABLET PO (20:44)
[2024-06-02] MEDS: Atorvastatin Calcium 80 MG Tablet PO (20:45)
[2024-06-03] MEDS: Acetaminophen 500 MG Tablet 1000 MG PO ×3 (06:23→21:11)
[2024-06-03] MEDS: Modafinil 200 MG Tablet PO (06:32)
[2024-06-03] MEDS: NIFEdipine 30 MG Tablet PO ×2 (06:32→09:27)
[2024-06-03] MEDS: oxyCODONE 5 MG Tablet PO ×2 (06:32→11:16)
[2024-06-03] MEDS: Carvedilol 25 MG Tablet PO ×2 (06:32→20:09)
[2024-06-03 06:40] VITALS: BP 152/72; PULSE 78; RESP 17; TEMP 36.4; O2SAT 94
[2024-06-03] MEDS: Bisacodyl 10 MG Suppository RC (06:47)
--- NOTE | 2024-06-03 08:24 | PCM.PROGNOTE ---
Subjective Subjective Genaro was seen on team rounds today. His Fozia was present in the room. All questions were answered to their satisfaction. Afebrile VSS -systolic is frequently elevated. Over the past 24 hours the blood pressure has ranged from 138/82 to 170/86. Maintaining appropriate oxygen saturation on RA Oral intake - FOOD good FLUIDS good Discussed with nursing - no problems that need addressed. Has been compliant with CPAP and is sleeping through the night. Reviewed the THERAPY notes Medication list reviewed. All lab drawn this morning was personally reviewed. Denies lightheadedness, cephalgia, chest pain, shortness of breath, nausea/vomiting/abdominal pain, dysuria and calf tenderness. He does have an occasional cough, usually associated with eating. Objective Data Objective Data Vital Signs: Vital Signs Temp Pulse Resp BP Pulse Ox O2 Del Method O2 Flow Rate 97.5 F L 78 17 152/72 H 94 Room Air 2 06/03/24 06:40 06/03/24 06:40 06/03/24 06:40 06/03/24 06:40 06/03/24 06:40 06/03/24 06:40 05/30/24 08:03 Oxygen Flow Rate (L/min) 2 Oxygen Delivery Method Room Air Weight: 227 lb 8.273 oz Body Mass Index (BMI) 35.6 Intake & Output: Intake and Output for Last 24 Hours 06/01/24 06/02/24 06/03/24 23:59 23:59 23:59 Intake Total 920 / 1320 1665 / 1665 Output Total 550 / 650 1175 / 1175 225 / 225 Balance 370 / 670 490 / 490 -225 / -225 Lab / Micro Data 05/31/24 05:37 05/31/24 05:37 Micro: Microbiology 05/28/24 14:10 Stool Stool Occult Blood (TIGRE) - Final Occult Blood Positive 05/24/24 04:30 Urine, Catheterized Urine Culture - Final Klebsiella pneumoniae sp pneum Proteus mirabilis 05/22/24 12:36 Urine Catheter - Catheter Urine Culture - Final Culture exhibits no growth. Physical Exam Const alert and oriented x3 General Appearance: cooperative Resp normal respiratory effort, normal air movement and clear to auscultation bilaterally Resp Narrative: No conversational dyspnea Effort and Inspection: Negative for tachypneic Cardio regular rate, regular rhythm and no gallops Cardio Narrative: No ectopy GI normal to inspection, nondistended, normoactive bowel sounds, soft to palpation and non-tender GI Narrative: No guarding with palpation Extremity Extremity Narrative: Trace edema in the right ankle, no edema of the left ankle. No calf tenderness. Skin Rashes: no rashes Psych Psych Narrative: Happy that he is now on a regular schedule of sleep/wake. He is sleeping through the night now and very alert during the days. Wearing the CPAP all night. Appearance: appropriate Attitude: No agitated Activity / Motor Behavior: Negative for restless Mood & Affect: Negative for depressed or anxious Thought Content: No suicidality Assessment & Plan Assessment/Plan (1) Debility: (2) Fall: QUALIFIERS: Encounter type: subsequent encounter Qualified Code(s): W19.XXXD - Unspecified fall, subsequent encounter (3) Intertrochanteric fracture of right femur: QUALIFIERS: Encounter type: subsequent encounter Fracture alignment: displaced Fracture type: closed (4) History of open reduction and internal fixation (ORIF) procedure: (5) Acute blood loss anemia: (6) Central sleep apnea: (7) Right hemiparesis: (8) Dysarthria as late effect of cerebrovascular accident (CVA): (9) Mild cognitive impairment: (10) Dysphagia: QUALIFIERS: Dysphagia type: unspecified Qualified Code(s): R13.10 - Dysphagia, unspecified (11) Glucose intolerance (impaired glucose tolerance): (12) HTN (hypertension): QUALIFIERS: Hypertension type: primary hypertension Qualified Code(s): I10 - Essential (primary) hypertension (13) Dysarthria: PLAN: Plan 1. Continue therapy 2. Increased Procardia XL to 60 mg daily started today. Will need to watch out for increasing ankle edema. 3. No change to the drug regimen today. 4. DC date is Monday.......not yet determined if he will be able to go home with Fozia's help or if he will need to go to SNF for additional therapy prior to returning home. Fozia will be coming in tomorrow for family training. He has to be able to get into the house from the garage and there are 6 6 steps with 1 HR. Therapy will be doing steps with him every day. so far he has only done 1 4 step. If he is not able to do 6 steps by Zac he is agreeable to going to TCU for additional therapy. Fozia is going to look into getting a WC lift installed but, this will take some time and would not happen prior to this Monday. 5. he is wearing the CPAP now and doing well. He will not need O2 at home unless he stops wearing the unit again. Charges/Coding Visit Charges Inpatient E&M: 82025 Subs Hosp L2
[2024-06-03] MEDS: Aspirin E.C. 81 MG Tablet PO (09:26)
[2024-06-03] MEDS: Fluticasone/Salmeterol 232-14 Inhaler 1 PUFF INHALATION ×2 (09:26→21:11)
[2024-06-03] MEDS: Multivitamins,Therapeutic Tablet 1 TABLET PO (09:27)
[2024-06-03] MEDS: metFORMIN HCl 500 MG Tablet PO (09:27)
[2024-06-03] MEDS: Senna/Docusate Sodium 1 Tablet 2 TABLET PO ×2 (09:27→21:11)
[2024-06-03] MEDS: Pregabalin 50 MG Capsule 200 MG PO ×2 (11:16→21:12)
[2024-06-03] MEDS: OXcarbazepine 150 MG Tablet PO ×2 (11:16→21:11)
[2024-06-03] MEDS: Venlafaxine XR 75 MG Capsule 225 MG PO (11:16)
[2024-06-03] MEDS: Lansoprazole 15 MG Capsule.DR 30 MG PO (11:16)
[2024-06-03] MEDS: APIXABAN 2.5 MG TABLET (WCH) PO ×2 (11:26→21:11)
--- NOTE | 2024-06-03 12:42 | CASEMGMT ---
Social Work IDT met with patient and for Team meeting. Discussed patient's progress in PT/OT/ST/SN. Confirmed Medicare benefit with DC 2/2. confirmed she can care for pt at home. Recommending skilled HHC PT/OT/SN. SW offered list of providers that include quality and resource data via CarePort Guide. denied and requested [facility]. SW to place referral. SW offered therapy training and agreed as pt has several steps to enter the home and to get to their bedroom. PT to practice further and offered training on 06/06. Dr concerned if pt cannot complete the steps, what would be an alternative plan. stated she and her son have looked into a chair or w/c chair lift for the entry steps. Team agreed to consider that for future uses, however, likely not an immediate option as installation typically takes weeks to months. agreed to contacting the company to begin the process, but also agreed to an alternative option. Dr discussed short term SNF stay until pt can better negotiate steps, if not successful this week. agreed. SW offered to provide list of options to that include quality and resource data. has no preference. Dr educated to TCU. and pt agreeable. SW to place referral and will notify if there is a bed available and can accept. SW will still pursue home as an option to prepare. and team requesting FWW and hospital bed for FFSU for DC. SW to refer to [facility] for coordination. SW will continue to follow to finalize DC plans. - SW referred to TCU. TCU will review, but unable to hold a bed until closer to DC date. - SW referred to [facility] via CarePort for FWW and hospital bed. Phoned referral to [facility] for PT/OT/SN. Plan: DC 2/2 home with needs vs TCU pending availability BRIANNA Gillespie
[2024-06-03 18:00] VITALS: BP 148/68; PULSE 78; RESP 17; TEMP 36.6; O2SAT 94
[2024-06-03] MEDS: Atorvastatin Calcium 80 MG Tablet PO (21:11)
[2024-06-03] MEDS: Tamsulosin HCl 0.4 MG Capsule 0.8 MG PO (21:11)
[2024-06-03] MEDS: MELATONIN 3 MG TABLET PO (21:11)
[2024-06-03] MEDS: cycloBENZAPRine HCl 10 MG Tablet PO (21:14)
[2024-06-04 06:30] VITALS: BP 128/67; PULSE 78; RESP 18; TEMP 36.3; O2SAT 94
[2024-06-04] MEDS: Carvedilol 25 MG Tablet PO ×2 (06:32→19:17)
[2024-06-04] MEDS: Acetaminophen 500 MG Tablet 1000 MG PO ×3 (06:32→22:02)
[2024-06-04] MEDS: oxyCODONE 5 MG Tablet PO ×2 (06:32→09:01)
[2024-06-04] MEDS: Modafinil 200 MG Tablet PO (06:32)
[2024-06-04] MEDS: NIFEdipine 60 MG Tablet PO (06:34)
[2024-06-04] MEDS: Venlafaxine XR 75 MG Capsule 225 MG PO (07:30)
[2024-06-04] MEDS: Multivitamins,Therapeutic Tablet 1 TABLET PO (07:30)
[2024-06-04] MEDS: Aspirin E.C. 81 MG Tablet PO (07:30)
[2024-06-04] MEDS: metFORMIN HCl 500 MG Tablet PO (07:30)
[2024-06-04] MEDS: APIXABAN 2.5 MG TABLET (WCH) PO ×2 (07:30→22:03)
[2024-06-04] MEDS: Lansoprazole 15 MG Capsule.DR 30 MG PO (07:31)
[2024-06-04] MEDS: OXcarbazepine 150 MG Tablet PO ×2 (07:31→22:04)
[2024-06-04] MEDS: Fluticasone/Salmeterol 232-14 Inhaler 1 PUFF INHALATION ×2 (07:31→22:03)
[2024-06-04] MEDS: Senna/Docusate Sodium 1 Tablet 2 TABLET PO (07:31)
--- NOTE | 2024-06-04 08:11 | PCM.PROGNOTE ---
Subjective Subjective Afebrile VSS -blood pressure today is 128/67. Procardia XL was increased to 60 mg yesterday. Heart rate is within normal limits. Maintaining appropriate oxygen saturation on RA Oral intake - FOOD good FLUIDS fair Discussed with nursing - no problems that need addressed. Sleeping through the night and wearing CPAP all night. C/O increased, pain in the RLE last night.......started stairs yesterday Reviewed the THERAPY notes Medication list reviewed. Pain was more tolerable today with therapy since the oxycodone was increased to 10 mg. He was able to do two 6 inch steps and a step to step fashion and repeated this 3 times. He must be able to do 6 steps in order to go home at discharge on Monday. Objective Data Objective Data Vital Signs: Vital Signs Temp Pulse Resp BP Pulse Ox O2 Del Method O2 Flow Rate 97.4 F L 78 18 128/67 H 94 Room Air 2 06/04/24 06:30 06/04/24 06:30 06/04/24 06:30 06/04/24 06:30 06/04/24 06:30 06/04/24 06:30 05/30/24 08:03 Oxygen Flow Rate (L/min) 2 Oxygen Delivery Method Room Air Weight: 227 lb 8.273 oz Body Mass Index (BMI) 35.6 Intake & Output: Intake and Output for Last 24 Hours 06/02/24 06/03/24 06/04/24 23:59 23:59 23:59 Intake Total 1665 / 1665 1040 / 1040 Output Total 1175 / 1175 1325 / 1325 250 / 250 Balance 490 / 490 -285 / -285 -250 / -250 Lab / Micro Data 05/31/24 05:37 05/31/24 05:37 Micro: Microbiology 05/28/24 14:10 Stool Stool Occult Blood (TIGRE) - Final Occult Blood Positive 05/24/24 04:30 Urine, Catheterized Urine Culture - Final Klebsiella pneumoniae sp pneum Proteus mirabilis 05/22/24 12:36 Urine Catheter - Catheter Urine Culture - Final Culture exhibits no growth. Physical Exam Const alert and oriented x3 General Appearance: cooperative Resp normal respiratory effort, normal air movement and clear to auscultation bilaterally Resp Narrative: No conversational dyspnea Effort and Inspection: Negative for tachypneic Cardio regular rate, regular rhythm and no gallops Cardio Narrative: No ectopy GI normal to inspection, nondistended, normoactive bowel sounds, soft to palpation and non-tender GI Narrative: No guarding with palpation Extremity Extremity Narrative: Trace edema in the right ankle, no edema of the left ankle. No calf tenderness. Skin Rashes: no rashes Assessment & Plan Assessment/Plan (1) Debility: (2) Fall: QUALIFIERS: Encounter type: subsequent encounter Qualified Code(s): W19.XXXD - Unspecified fall, subsequent encounter (3) Intertrochanteric fracture of right femur: QUALIFIERS: Encounter type: subsequent encounter Fracture type: closed Fracture alignment: displaced (4) History of open reduction and internal fixation (ORIF) procedure: (5) Acute blood loss anemia: (6) Central sleep apnea: (7) Right hemiparesis: (8) Dysarthria as late effect of cerebrovascular accident (CVA): (9) Mild cognitive impairment: (10) Dysphagia: QUALIFIERS: Dysphagia type: unspecified Qualified Code(s): R13.10 - Dysphagia, unspecified (11) Glucose intolerance (impaired glucose tolerance): (12) HTN (hypertension): QUALIFIERS: Hypertension type: primary hypertension Qualified Code(s): I10 - Essential (primary) hypertension (13) Dysarthria: PLAN: Plan 1. Continue therapy 2. Increase the scheduled oxycodone to 10 mg. Having increased pain. Suspect secondary to increased activity and stairs. 3. Check vital signs every 4 hours while awake for the next 48 hours. Goal for the blood pressure is to maintain less than 140/80 consistently. Procardia XL was increased to 60 mg on 06/03/2024. 4. Will need follow-up with orthopedics postdischarge from acute rehab. The incisions are intact with no dehiscence, no discharge and no vivek-incisional erythema. Charges/Coding Visit Charges Inpatient E&M: 77093 [facility] Hosp L1
[2024-06-04 10:00] VITALS: BP 146/70; PULSE 76
[2024-06-04] MEDS: Pregabalin 50 MG Capsule 200 MG PO ×2 (10:17→22:03)
[2024-06-04] MEDS: oxyCODONE 5 MG Tablet 10 MG PO (12:09)
[2024-06-04 14:00] VITALS: BP 125/61; PULSE 82
[2024-06-04 18:00] VITALS: BP 123/62; PULSE 82; RESP 17; TEMP 36.5; O2SAT 93
[2024-06-04 22:00] VITALS: BP 120/65; PULSE 80; RESP 18; TEMP 36.6; O2SAT 94
[2024-06-04] MEDS: MELATONIN 3 MG TABLET PO (22:02)
[2024-06-04] MEDS: Atorvastatin Calcium 80 MG Tablet PO (22:03)
[2024-06-04] MEDS: Tamsulosin HCl 0.4 MG Capsule 0.8 MG PO (22:03)
[2024-06-05 06:08] VITALS: BP 163/80; PULSE 81; RESP 18; TEMP 36.6; O2SAT 94
[2024-06-05] MEDS: oxyCODONE 5 MG Tablet 10 MG PO ×2 (06:11→11:16)
[2024-06-05] MEDS: NIFEdipine 60 MG Tablet PO (06:11)
[2024-06-05] MEDS: Modafinil 200 MG Tablet PO (06:11)
[2024-06-05] MEDS: Carvedilol 25 MG Tablet PO ×2 (06:11→17:54)
[2024-06-05] MEDS: Acetaminophen 500 MG Tablet 1000 MG PO ×3 (06:11→22:34)
[2024-06-05] MEDS: Fluticasone/Salmeterol 232-14 Inhaler 1 PUFF INHALATION ×2 (08:17→22:32)
[2024-06-05] MEDS: OXcarbazepine 150 MG Tablet PO ×2 (08:17→22:33)
[2024-06-05] MEDS: Lansoprazole 15 MG Capsule.DR 30 MG PO (08:17)
[2024-06-05] MEDS: Senna/Docusate Sodium 1 Tablet 2 TABLET PO ×2 (08:17→22:33)
[2024-06-05] MEDS: Aspirin E.C. 81 MG Tablet PO (08:18)
[2024-06-05] MEDS: Multivitamins,Therapeutic Tablet 1 TABLET PO (08:18)
[2024-06-05] MEDS: Venlafaxine XR 75 MG Capsule 225 MG PO (08:18)
[2024-06-05] MEDS: APIXABAN 2.5 MG TABLET (WCH) PO ×2 (08:18→22:32)
[2024-06-05] MEDS: metFORMIN HCl 500 MG Tablet PO (08:18)
[2024-06-05 10:00] VITALS: BP 128/64; PULSE 78
[2024-06-05] MEDS: Buprenorphine 10 MCG PATCH.TDWK 1 PATCH TD (10:13)
[2024-06-05] MEDS: Pregabalin 50 MG Capsule 200 MG PO ×2 (11:27→22:35)
[2024-06-05 14:00] VITALS: BP 136/76; PULSE 80
[2024-06-05 17:59] VITALS: BP 124/75; PULSE 84; RESP 16; TEMP 36.6; O2SAT 91
[2024-06-05] MEDS: Atorvastatin Calcium 80 MG Tablet PO (22:32)
[2024-06-05] MEDS: Tamsulosin HCl 0.4 MG Capsule 0.8 MG PO (22:32)
[2024-06-05] MEDS: MELATONIN 3 MG TABLET PO (22:33)
[2024-06-05 22:41] VITALS: BP 160/80; PULSE 88; RESP 18; TEMP 36.2; O2SAT 92
[2024-06-06 06:00] VITALS: BP 126/56; PULSE 77; RESP 16; TEMP 36.6; O2SAT 93
[2024-06-06] MEDS: NIFEdipine 60 MG Tablet PO (06:10)
[2024-06-06] MEDS: Modafinil 200 MG Tablet PO (06:10)
[2024-06-06] MEDS: oxyCODONE 5 MG Tablet 10 MG PO ×2 (06:10→12:21)
[2024-06-06] MEDS: Acetaminophen 500 MG Tablet 1000 MG PO ×3 (06:10→20:00)
[2024-06-06] MEDS: Carvedilol 25 MG Tablet PO ×2 (06:10→19:55)
[2024-06-06] MEDS: Fluticasone/Salmeterol 232-14 Inhaler 1 PUFF INHALATION ×2 (07:57→19:56)
[2024-06-06] MEDS: OXcarbazepine 150 MG Tablet PO ×2 (07:59→19:58)
[2024-06-06] MEDS: metFORMIN HCl 500 MG Tablet PO (07:59)
[2024-06-06] MEDS: Multivitamins,Therapeutic Tablet 1 TABLET PO (07:59)
[2024-06-06] MEDS: Pregabalin 50 MG Capsule 200 MG PO ×2 (08:00→19:57)
[2024-06-06] MEDS: Lansoprazole 15 MG Capsule.DR 30 MG PO (08:00)
[2024-06-06] MEDS: Aspirin E.C. 81 MG Tablet PO (08:00)
[2024-06-06] MEDS: Venlafaxine XR 75 MG Capsule 225 MG PO (08:00)
[2024-06-06] MEDS: APIXABAN 2.5 MG TABLET (WCH) PO ×2 (08:00→19:55)
[2024-06-06] MEDS: Polyethylene Glycol 3350 17 GM PACKET PO (08:00)
[2024-06-06] MEDS: Senna/Docusate Sodium 1 Tablet 2 TABLET PO ×2 (08:00→19:57)
[2024-06-06 10:00] VITALS: BP 115/77; PULSE 80
--- NOTE | 2024-06-06 12:54 | CASEMGMT ---
Addendum entered by Fiordaliza Vásquze 06/06/24 16:24: [facility] does not have any beds available. RHETT phoned to update. Offered list. requested verbal list - denied [address], [facility]. Agreeable to referrals to [facility], [facility], [place], then would consider other options if needed. RHETT placed referrals via CarePort. Addendum entered by Fiordaliza Vásquez 06/06/24 15:01: Team discussed pt's DC home and concluded there remains safety concerns with homegoing and with steps before the stair lift get installed. Dr recommending SNF at [place]. - RHETT phoned to provide explanation. concerned with transitioning pt to multiple places. just met with a stair lift company and can install early next week. SW offered for pt to remain in [place] and pay privately at $1581/day. not able to fund that and is agreeable to pt transferring to another SNF. SW offered to provide list of SNFs including quality and resource data via CarePort Guide. denied and requested W. SW to place referral and update on acceptance/denial. - SW canceled referrals to [facility] and [facility] [place] Referred to [facility] via CarePort. Will continue to follow. Original Note: Social Work SW met with after stair training. Initially in the conversation, the was willing to take pt home, though did acknowledge pt was wobbly on the steps. is aware pt will need assistance at home. RHETT explained recommendations would be 24/7 care and offered resources to assist with providing care for pt while is gone, such as [place] and hiring TRA[employer]ER. accepting. stated she has contacted several stair lift companies, but it would be 4-8 weeks prior to installation. stated her [facility] can help with pt getting in the home steps at [place]. During this discussion, Dr. Stone presented and recommended pt transfer to TCU, citing pt's instability on the steps and concerns for safety at home. agreed with Dr's recommendations, but still plans to pursue the stair lift. SW to contact TCU to inquire about bed availability. - TCU had changes to their beds and no longer has available for pt. - RHETT returned call to to update. stated she will take pt home. Requesting hospital bed, FWW and skilled HHC as previously discussed. SW to coordinate. Fiordaliza Vásquez, BRIANNA ANGELAW
[2024-06-06 14:00] VITALS: BP 136/78; PULSE 80
[2024-06-06 18:00] VITALS: BP 133/76; PULSE 83; RESP 16; TEMP 36.2; O2SAT 91
[2024-06-06] MEDS: Tamsulosin HCl 0.4 MG Capsule 0.8 MG PO (19:56)
[2024-06-06] MEDS: Atorvastatin Calcium 80 MG Tablet PO (19:56)
[2024-06-06] MEDS: MELATONIN 3 MG TABLET PO (19:57)
[2024-06-06 22:00] VITALS: RESP 16
[2024-06-07 06:00] VITALS: BP 141/70; PULSE 89; RESP 16; TEMP 36.6; O2SAT 92; BMI 36.1
[2024-06-07] MEDS: oxyCODONE 5 MG Tablet 10 MG PO ×2 (06:19→11:57)
[2024-06-07] MEDS: Modafinil 200 MG Tablet PO (06:19)
[2024-06-07] MEDS: Carvedilol 25 MG Tablet PO ×2 (06:20→23:35)
[2024-06-07] MEDS: NIFEdipine 60 MG Tablet PO (06:20)
[2024-06-07] MEDS: Acetaminophen 500 MG Tablet 1000 MG PO ×3 (06:23→23:34)
[2024-06-07] MEDS: metFORMIN HCl 500 MG Tablet PO (08:43)
[2024-06-07] MEDS: Lansoprazole 15 MG Capsule.DR 30 MG PO (08:43)
[2024-06-07] MEDS: OXcarbazepine 150 MG Tablet PO ×2 (08:43→23:35)
[2024-06-07] MEDS: Multivitamins,Therapeutic Tablet 1 TABLET PO (08:43)
[2024-06-07] MEDS: Venlafaxine XR 75 MG Capsule 225 MG PO (08:43)
[2024-06-07] MEDS: Aspirin E.C. 81 MG Tablet PO (08:43)
[2024-06-07] MEDS: APIXABAN 2.5 MG TABLET (WCH) PO ×2 (08:43→23:35)
[2024-06-07] MEDS: Senna/Docusate Sodium 1 Tablet 2 TABLET PO ×2 (08:43→23:34)
[2024-06-07] MEDS: Pregabalin 50 MG Capsule 200 MG PO ×2 (08:45→23:38)
[2024-06-07] MEDS: Fluticasone/Salmeterol 232-14 Inhaler 1 PUFF INHALATION ×2 (08:45→23:36)
--- NOTE | 2024-06-07 11:45 | CASEMGMT ---
Addendum entered by Fiordaliza Vásquez 06/07/24 16:41: 7000 completed and DC paperwork sent to [facility] Original Note: [facility] does not have any beds. [facility] has not acknowledged referral. [facility] can accept. - SW phoned to update. is agreeable to [facility]. can transport as she practiced car transfers with pt today. SW answered 's questions. Secured [facility]. Notified IDT. 7000 started. plan: DC 06/09 to [facility], skilled Fiordaliza Vásquez, BRIANNA ANGELAW
--- NOTE | 2024-06-07 15:40 | TREXTCAR_ITS ---
Diet Diet Order/Speech Therapy: 05/22/24 16:50 Diet: Regular - No Added Salt Food consistency:: Regular Liquid Consistency:: Regular/Thin Type of Dietary Supplement:: Ensure Plus High Protein Diet Comments: Meats cut up. 120mL ensure w/dinner Routine Orders/Code Status Enema Type: Fleetz Enema Frequency: Daily PRN Suppository Type: Dulcolax 10mg Routine Lab Work: - (CBC, BMP on 06/10/2024.) Code Status: Full Code DC O2, CPAP, BIPAP needs Home O2 Discharge instructions: Yes Type of respiratory needs?: CPAP (only needs oxygen IF he is not wearing CPAP.) CPAP instructions: Wear anytime he is sleeping. Wound(s) rt hip: Wound Type: Surgical Incision (Healing with no dehiscence, no DC. Trace swelling of the R ankle. ) upper rt thigh: Wound Type: Surgical Incision rt arm below elbow: Wound Type: Skin Tear Therapies Weight Bearing: Full weight bearing Extremity Affected:: Right Lower Physical Therapy: Eval and Treat Occupational Therapy: Eval and Treat Problem/Diagnosis (1) Debility: Status: Acute Code(s): R53.81 - Other malaise (2) Fall: Status: Inactive Code(s): W19.XXXA - Unspecified fall, initial encounter (3) Intertrochanteric fracture of right femur: Status: Inactive Code(s): S72.141A - Displaced intertrochanteric fracture of right femur, initial encounter for closed fracture Plan: S/P cephalomedullary nailing by Dr. Alejandra Mcfarlane at [facility] on 05/15/2024. Will need to follow-up with Dr. Mcfarlane [facility]. (4) History of open reduction and internal fixation (ORIF) procedure: Status: Inactive Code(s): Z98.890 - Other specified postprocedural states Comment: 05/15/2024 at [facility]. Cephalomedullary nailing. (5) Acute blood loss anemia: Status: Acute Code(s): D62 - Acute posthemorrhagic anemia Plan: Hemoglobin is stable at 10 at the time of discharge from acute rehab. (6) Central sleep apnea: Status: Chronic Code(s): G47.31 - Primary central sleep apnea Plan: If for some reason he will not wear the CPAP he should be on 2 LPM O2 anytime he is sleeping. Comment: Noncompliant with PAP therapy for a few months prior to admission to rehab due to equipment failure. Mask and tubing were replaced while on rehab and he has been compliant with wearing CPAP all night while sleeping for the past week or so. (7) Right hemiparesis: Status: Chronic Code(s): G81.91 - Hemiplegia, unspecified affecting right dominant side (8) Dysarthria as late effect of cerebrovascular accident (CVA): Status: Chronic Code(s): I69.322 - Dysarthria following cerebral infarction (9) Mild cognitive impairment: Status: Chronic Code(s): G31.84 - Mild cognitive impairment of uncertain or unknown etiology (10) Dysphagia: Status: Chronic Code(s): R13.10 - Dysphagia, unspecified (11) Glucose intolerance (impaired glucose tolerance): Status: Chronic Code(s): R73.02 - Impaired glucose tolerance (oral) Plan: Hemoglobin A1c in January 2024 was 5.7. Comment: Hemoglobin A1c 5.7 in January 2024. (12) HTN (hypertension): Status: Chronic Code(s): I10 - Essential (primary) hypertension Comment: Uncontrolled presentation to rehab (13) Dysarthria: Status: Chronic Code(s): R47.1 - Dysarthria and anarthria (14) Insomnia: Status: Resolved Code(s): G47.00 - Insomnia, unspecified Plan: Improved with changing the Effexor XR to once daily in the AM and decreasing the dose from 300 mg daily to 225. He is stable on 225 with a normal affect and no depression. His pain is well controlled. Would attempt to decrease to 150 mg daily to help with BP control and then leave at 150 mg daily for pain management. He was started on Provigil because he was sleeping most of the day and he is awake during the day and sleeping well at night at the time of DC from rehab. tolerating the Provigil well. He is very cooperative, pleasant and always willing to do therapy. He is outgoing and easy to work with (15) Chronic back pain greater than 3 months duration: Status: Chronic Code(s): M54.9 - Dorsalgia, unspecified; G89.29 - Other chronic pain Plan: Controlled on the current drug regimen. He is gettin Oxycodone 10 mg twice a day scheduled for pain in the R hip so that he is able to do his therapy without pain limiting his involvement. Comment: With neurogenic claudication. Follows with pain management at [facility]. (16) Depression: Status: Chronic Code(s): F32.A - Depression, unspecified Plan: Affect is normal at DC from rehab. He is sleeping well and eating well and is pleasant and cooperative. He makes good eye contact and always is appreciative whenever any staff does anything for him. Plan 1. Dc to [facility] on 06/09/24 for additional therapy prior to returning home. Chair lift is being installed next week. Unable to accomplish 6 steps at the time of DC from rehab......this is what he has to do at home to get into his house. The chair lift will make things much easier. Allergies/Procedures Done in Hospital Allergies tolmetin (From Tolectin) Allergy (Severe, Verified 11/02/23 15:09) Anaphylaxis IN LIPS, FACE, INCREASED HEART RATE Procedures: None Type of Care/Length of Stay Estimated LOS: Convalescent Care Less Than 30 days Type of Care Needed: Skilled Rehab Potential: Good Prognosis: Good Additional Orders/Day of Discharge Additional Orders: He uses Nicorette gum to help control anxiety when he has it. We have been limiting him to 6 pieces a day. H&P will serve as current which was dated: 05/21/24 Day of Discharge: 06/09/24 Dietary and Speech Recommendations Dietitian Recommendations/Changes: Continue regular, no added salt diet d/t HTN, with meats cut into pieces per pt request. Continue 120ml ensure plus high protein with dinner. Follow Up Care Please follow up with your Primary Care Physician in: following DC from [facility] Please Follow Up With: Alejandra Mcfarlane DO When: AUNDREA after DC from rehab Discharge Plan Admission Admit Date/Time: 05/21/24 16:30 Primary Reason for Your Visit: debility due to fall/hip fracture/ORIF Attending Provider: Luna Stone Primary Care Provider: Eduardo Streeter Discharge Orders/Prescriptions Prescriptions: New carvedilol 25 mg Tablet 25 mg PO 0700,1900 Qty: 1 0RF acetaminophen 500 mg Tablet 1,000 mg PO Q8 PRN (Reason: pain) Qty: 1 0RF bisacodyl 10 mg Suppository 10 mg [place] X1 PRN (Reason: Constipation) Qty: 1 0RF Eliquis 5 mg Tablet 2.5 mg PO BID Qty: 14 0RF Rx Instructions: DC after the last dose given on 06/15/24 fluticasone propion-salmeterol 232-14 mcg/actuation Aerosol Powdr Breath Activated 1 inh inhalation Q12 Qty: 1 0RF metformin 500 mg Tablet 500 mg PO DAILY Qty: 1 0RF melatonin 3 mg Tablet 3 mg PO HS Qty: 1 0RF modafinil 200 mg Tablet 200 mg PO DAILY@0600 Qty: 30 0RF magnesium hydroxide 400 mg/5 mL Suspension 30 ml PO X1 PRN (Reason: Constipation) Qty: 1 0RF venlafaxine 75 mg Capsule,Extended Release 24hr 225 mg PO DAILY Qty: 3 0RF sennosides-docusate sodium [Stimulant Laxative Plus] 8.6-50 mg Tablet 2 tab PO BID Qty: 1 0RF nifedipine 60 mg Tablet Extended Release 24hr 60 mg PO 0700 Qty: 30 0RF tamsulosin 0.4 mg Capsule 0.8 mg PO QHS Qty: 1 0RF oxycodone 5 mg Tablet 10 mg PO 0700,1100 7 Days Qty: 28 0RF Continued aspirin 81 mg tablet,delayed release (DR/EC) 81 mg PO DAILY atorvastatin 80 mg tablet 80 mg PO QHS cyclobenzaprine 10 mg tablet 10 mg PO TID PRN (Reason: muscle spasm) lansoprazole 30 mg capsule,delayed release(DR/EC) 30 mg PO DAILY metformin 500 mg tablet 500 mg PO DAILY multivitamin Tablet 1 tab PO DAILY omega-3 fatty acids-fish oil [Fish Oil] 360-1,200 mg capsule 1 cap PO BID oxcarbazepine 150 mg tablet 150 mg PO BID pregabalin 200 mg capsule 200 mg PO BID clobetasol 0.05 % ointment 1 applic topical BID PRN (Reason: sores) cyanocobalamin (vitamin B-12) 1,000 mcg/mL solution 1,500 mcg IM QMONTH ascorbic acid (vitamin C) 500 mg tablet 500 mg PO BID Qty: 1 0RF Rx Instructions: take this with a meal and with the ferrous sulfate. ferrous sulfate 325 mg (65 mg iron) tablet 325 mg PO DAILY Qty: 1 0RF Rx Instructions: Take with a meal and with Vitamin C 500 mg. buprenorphine 10 mcg/hour patch weekly 1 patch transdermal QWEEK Qty: 2 0RF Discontinued carvedilol 25 mg tablet 12.5 mg PO BID melatonin 3 mg capsule 3 mg PO HS PRN (Reason: sleep) tamsulosin 0.4 mg capsule 0.8 mg PO BID venlafaxine 150 mg capsule,extended release 24hr 150 mg PO BID oxycodone 5 mg tablet 5 mg PO Q8H PRN (Reason: pain) Referrals / Follow Up: Eduardo Streeter DO [Primary Care Provider] - 06/20/24 9:00 am Dayan Mortensen PA [Non-Staff] - Disposition Disposition (needs filled in before D/C Order can be placed): Jail Facility (2) Fall Qualifiers: Encounter type: subsequent encounter Qualified Code(s): W19.XXXD - Unspecified fall, subsequent encounter (3) Intertrochanteric fracture of right femur Qualifiers: Encounter type: subsequent encounter Fracture type: closed Fracture alignment: displaced (10) Dysphagia Qualifiers: Dysphagia type: unspecified Qualified Code(s): R13.10 - Dysphagia, unspecified (12) HTN (hypertension) Qualifiers: Hypertension type: primary hypertension Qualified Code(s): I10 - Essential (primary) hypertension (14) Insomnia Qualifiers: Insomnia type: unspecified Qualified Code(s): G47.00 - Insomnia, unspecified
--- NOTE | 2024-06-07 16:35 | PCM.DC.SUM ---
Providers Date of Admission: 05/21/24 Date of Discharge: 06/09/24 Primary Care Physician: Dr. Eduardo Streeter DO Reason For Visit: R HIP FRACTURE Diagnosis Discharge Diagnosis (1) Debility: Status: Acute Code(s): R53.81 - Other malaise (2) Fall: Status: Inactive Code(s): W19.XXXA - Unspecified fall, initial encounter Qualifiers: Encounter type: subsequent encounter Qualified Code(s): W19.XXXD - Unspecified fall, subsequent encounter (3) Intertrochanteric fracture of right femur: Status: Inactive Code(s): S72.141A - Displaced intertrochanteric fracture of right femur, initial encounter for closed fracture Qualifiers: Encounter type: subsequent encounter Fracture alignment: displaced Fracture type: closed Plan: S/P cephalomedullary nailing by Dr. Alejandra Mcfarlane at [facility] on 05/15/2024. Will need to follow-up with Dr. Mcfarlane [facility]. (4) History of open reduction and internal fixation (ORIF) procedure: Status: Inactive Code(s): Z98.890 - Other specified postprocedural states (5) Acute blood loss anemia: Status: Acute Code(s): D62 - Acute posthemorrhagic anemia Plan: Hemoglobin is stable at 10 at the time of discharge from acute rehab. (6) Central sleep apnea: Status: Chronic Code(s): G47.31 - Primary central sleep apnea Plan: If for some reason he will not wear the CPAP he should be on 2 LPM O2 anytime he is sleeping. 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 (12) HTN (hypertension): Status: Chronic Code(s): I10 - Essential (primary) hypertension Qualifiers: Hypertension type: primary hypertension Qualified Code(s): I10 - Essential (primary) hypertension (13) Dysarthria: Status: Chronic Code(s): R47.1 - Dysarthria and anarthria (14) Insomnia: Status: Resolved Code(s): G47.00 - Insomnia, unspecified Qualifiers: Insomnia type: unspecified Qualified Code(s): G47.00 - Insomnia, unspecified Plan: Improved with changing the Effexor XR to once daily in the AM and decreasing the dose from 300 mg daily to 225. He is stable on 225 with a normal affect and no depression. His pain is well controlled. Would attempt to decrease to 150 mg daily to help with BP control and then leave at 150 mg daily for pain management. He was started on Provigil because he was sleeping most of the day and he is awake during the day and sleeping well at night at the time of DC from rehab. tolerating the Provigil well. He is very cooperative, pleasant and always willing to do therapy. He is outgoing and easy to work with (15) Chronic back pain greater than 3 months duration: Status: Chronic Code(s): M54.9 - Dorsalgia, unspecified; G89.29 - Other chronic pain Plan: Controlled on the current drug regimen. He is gettin Oxycodone 10 mg twice a day scheduled for pain in the R hip so that he is able to do his therapy without pain limiting his involvement. (16) Depression: Status: Chronic Code(s): F32.A - Depression, unspecified Plan: Affect is normal at DC from rehab. He is sleeping well and eating well and is pleasant and cooperative. He makes good eye contact and always is appreciative whenever any staff does anything for him. (17) Iron deficiency: Status: Chronic Code(s): E61.1 - Iron deficiency Plan: He was treated with 700 mg of intravenous iron while on acute rehab and has been started on ferrous sulfate plus vitamin C 500 mg daily with a meal. Hemoglobin is stable at 10 at discharge from acute rehab. Plan 1. DC to [facility] on 06/09/24 for additional therapy prior to returning home. Chair lift is being installed next week. Unable to accomplish 6 steps at the time of DC from rehab......this is what he has to do at home to get into his house. The chair lift will make things much easier. 2. Follow up with Dr. Denys GUILLAUME after DC from rehab 3. follow up with PCP following DC from [facility]. Medications at Discharge Home Medications aspirin 81 mg tablet,delayed release 81 mg PO DAILY heart health 08/30/21 atorvastatin 80 mg tablet 80 mg PO QHS cholesterol 08/30/21 cyclobenzaprine 10 mg tablet 10 mg PO TID PRN muscle spasm 08/30/21 lansoprazole 30 mg capsule,delayed release 30 mg PO DAILY Gerd 08/30/21 metformin 500 mg tablet 500 mg PO DAILY DM 08/30/21 multivitamin 1 tab PO DAILY supplement 08/30/21 omega-3 fatty acids-fish oil 360 mg-1,200 mg capsule (Fish Oil) 1 cap PO BID supplement 08/30/21 oxcarbazepine 150 mg tablet 150 mg PO BID seizures 08/30/21 pregabalin 200 mg capsule 200 mg PO BID pain 08/30/21 clobetasol 0.05 % topical ointment 1 applic topical BID PRN sores 05/21/24 cyanocobalamin (vitamin B-12) 1,000 mcg/mL injection solution 1,500 mcg IM QMONTH supplement 05/21/24 acetaminophen 500 mg tablet 1,000 mg (2 x 500 mg) PO Q8 PRN pain #1 TAB 06/07/24 apixaban 5 mg tablet (Eliquis) 2.5 mg (1/2 x 5 mg) PO BID #14 tabs 06/07/24 ascorbic acid (vitamin C) 500 mg tablet 500 mg PO BID supplement #1 TAB 06/07/24 bisacodyl 10 mg rectal suppository 10 mg MA X1 PRN Constipation #1 ea 06/07/24 buprenorphine 10 mcg/hour weekly transdermal patch 1 patch transdermal QWEEK pain #2 ea 06/07/24 carvedilol 25 mg tablet 25 mg PO 0700,1900 #1 TAB 06/07/24 ferrous sulfate 325 mg (65 mg iron) tablet 325 mg PO DAILY supplement #1 TAB 06/07/24 fluticasone 232 mcg-salmeterol 14 mcg/actuation breath activated powdr 1 inh inhalation Q12 #1 ea 06/07/24 magnesium hydroxide 400 mg/5 mL oral suspension 30 ml PO X1 PRN Constipation #1 mL 06/07/24 melatonin 3 mg tablet 3 mg PO HS #1 TAB 06/07/24 metformin 500 mg tablet 500 mg PO DAILY #1 TAB 06/07/24 modafinil 200 mg tablet 200 mg PO DAILY@0600 #30 tabs 06/07/24 nifedipine 60 mg tablet,extended release 24 hr 60 mg PO 0700 #30 tabs 06/07/24 oxycodone 5 mg tablet 10 mg (2 x 5 mg) PO 0700,1100 1 week #28 tabs 06/07/24 sennosides 8.6 mg-docusate sodium 50 mg tablet (Stimulant Laxative Plus) 2 tab PO BID #1 TAB 06/07/24 tamsulosin 0.4 mg capsule 0.8 mg (2 x 0.4 mg) PO QHS #1 cap 06/07/24 venlafaxine 75 mg capsule,extended release 24 hr 225 mg (3 x 75 mg) PO DAILY #3 caps 06/07/24 Hospital Course Operations - (Right hip cephalomedullary nail by Dr. Mcfarlane on 05/15/2024 at [facility]) Procedures None Summary of Care Provided Minutes Spent on Discharge: 37 Hospital Course: GENARO ALLEN, is a 69-year-old M with a past medical history of hypertension, glucose intolerance, COPD, hyperlipidemia, depression/anxiety, central sleep apnea, obesity, BPH, chronic back pain, lumbar canal stenosis with neurogenic claudication, remote tobacco dependence (quit in July 2020 at the time of the stroke, hospitalization in October 2020 for aggressive behavior at home and history of a left posterior limb internal capsule ischemic CVA in July 2020 who slipped and fell in his BR while doing a colonoscopy prep on 05/15/2024.. He sustained a closed mildly displaced intertrochanteric fracture of the right femur. He ws taken to surgery underwent cephalomedullary nailing at [facility] on 05/15/2024. Creat was 2.2 at presentation to [place]. Lisinopril was placed on hold and he was hydrated. Creat at admission to [facility] is 1.1. Review of labs over the past 18 months shows creat ranging form 1.38-1.53 which is consistent with stage 3a CRF. Postoperatively he had hypercapnic/hypoxic acute respiratory failure and was intubated and transferred to the intensive care. This was thought to be secondary to narcotics/sedation. He was extubated on 05/17/2024. Genaro was transferred to the acute inpt rehab unit at [facility] on 05/21/24 for 3 hours of therapy daily to restore function/independence at or near his level prior to the hip fracture. He was ambulating without an AD prior to the fall. He was independent with ADL's. Genaro had stopped wearing CPAP a few months prior to presentation to acute rehab. Apparently there was a leak in the tubing or the mask and it was not functioning properly. Wanes routine was to go to bed at 3 to 4 AM in the morning and to get up at 5 PM in the afternoon. He took his morning meds between 5 and 6 PM and his gave him the second round of meds when she went to bed approximately 5 to 6 hours later. He was taking Effexor 150 mg twice daily which may have been contributing to insomnia. The respiratory department provided new tubing and a new mask and Genaro has been wearing CPAP through the night for 7 to 10 days postdischarge from rehab. The Effexor was decreased to 225 mg daily and the dose was given in the a.m. so is not to interfere with sleep at night. Genaro was very somnolent during the day and unable to participate in therapy initially. He was started on Provigil 200 mg daily and he has been very alert during the days and able to do therapy. He is sleeping through the night at the time of discharge from rehab. He has been mostly cooperative. At the time he presented to acute rehab he was toe-touch weightbearing only on the right lower extremity for 2 weeks postoperatively but, due to his cognitive deficits he was unable to maintain this so he was mostly nonweightbearing. After he was on rehab 7-10 days I spoke with Dr. Mcfarlane and she released him to be wt bearing as tolerated. He c/o pain in the R hip with therapy and he was started on Oxycodone 5 mg BID in the AM and afternoon. This was later increased to 10 mg and he is no longer c/o pain limiting his therapy. Blood pressure was not adequately controlled at presentation to rehab and adjustments were made to his antihypertensive regimen. Blood pressure at discharge from rehab is well-controlled and he is taking carvedilol 25 mg twice daily and Procardia XL 60 mg daily. Blood pressure in the a.m. on 06/08/2024 was 122/71. Heart rate is in the 80s. He has a trace of peripheral edema in the right lower extremity only at the ankle. Genaro progressed well in therapy. At the time of discharge he is able to ascend/descend two 6 inch steps using 1 handrail with both hands on the handrail and sidestepping up/down at mod I. He still requiring max cues to focus. He has six 6 inch steps to enter his house and he is not safe to go home yet. He is going to be transferred to [facility] for additional therapy prior to going home. His family is having a chairlift installed and this should happen the week following discharge. He is able to ambulate up to 150 feet with a front wheeled walker at contact-guard assist prior to discharge. He is supervision/set up for eating and standby assist for grooming. He is supervision/set up with bathing and upper body dressing. He requires minimal assistance with lower body dressing and toileting. He is standby assist for toilet transfer and tub/shower transfer. Genaro has a difficult time with attention span and focus. He needs a lot of redirection and cuing to get therapy done. He sometimes refuses therapy but, is usually cooperative. He has been sleeping very well at night and wearing CPAP. He is alert during the day. He is tolerating Provigil without any adverse side effects. Genaro was discharged to [facility] on 06/09/2024 for additional therapy prior to returning home. He will follow-up with Dr. Eduardo Streeter on 06/20/2024 at 9 AM. He will also need to follow-up with Dr. Mcfarlane as soon as possible following discharge from acute rehab. Oxycodone was transition to as needed prior to discharge from rehab. Physical Exam Const alert and oriented x3 General Appearance: cooperative HEENT HEENT Narrative: Mucous membranes are little dry. No evidence of thrush. Eyes PERRL, EOMs intact bilaterally, conjunctivae normal and no scleral icterus Eyes Narrative: No discharge from the eyes and no mattering of the eyelashes. No visual field cuts. General Eye: normal appearance of both eyes Neck supple and no carotid bruits Chest Chest: symmetrical chest wall rise Resp normal respiratory effort, normal air movement and clear to auscultation bilaterally Resp Narrative: No conversational dyspnea Effort and Inspection: Negative for tachypneic Cardio regular rate, regular rhythm and no gallops Cardio Narrative: No ectopy GI normal to inspection, nondistended, normoactive bowel sounds, soft to palpation and non-tender GI Narrative: No guarding with palpation Extremity Extremity Narrative: Trace edema in the right ankle, no edema of the left ankle. No calf tenderness. Skin Rashes: no rashes Wound Narrative: The incisions in the right lateral thigh are intact with no dehiscence, no vivek-incisional erythema and no discharge. Neuro Neuro Narrative: Speech continues to be slurred. This is likely multifactorial secondary to previous stroke but also the fact that he is edentulous. It is more clear and easily understood than it was at admission to rehab. Cranial nerves II through XII are grossly intact. The tongue protrudes on the midline. He has mild right hemiparesis from a previous stroke. Psych Psych Narrative: Sleeping well at night. Good appetite. Mostly cooperative. Has a difficult time with attention span and focus. Weight / BMI Weight Weight: 230 lb 6.129 oz Body Mass Index (BMI) 36.1 ABG / Lab / Microbiology Data 05/31/24 05:37 05/31/24 05:37 Microbiology: Microbiology 05/28/24 14:10 Stool Stool Occult Blood (TIGRE) - Final Occult Blood Positive 05/24/24 04:30 Urine, Catheterized Urine Culture - Final Klebsiella pneumoniae sp pneum Proteus mirabilis 05/22/24 12:36 Urine Catheter - Catheter Urine Culture - Final Culture exhibits no growth. D/C Instructions DC O2, CPAP, BIPAP Needs Home O2 Discharge instructions: Yes Type of respiratory needs?: CPAP (only needs oxygen IF he is not wearing CPAP.) CPAP instructions: Wear anytime he is sleeping. DC home with Oxygen: No Please Follow Up With: Alejandra Mcfarlane, DO Meaningful Use Info Meaningful Use Meaningful Use Diagnoses (Choose all that apply): None applicable Ischemic Stroke Statin Dosing Therapy Reference: STATIN DOSE THERAPY REFERENCE: * Patients > 75 years receive moderate or high dose statin therapy. * Patients 75 years or YOUNGER should receive HIGH intensity statin dose unless contraindicated. You will be required to document reason for non-treatment if statin daily dose does not meet guidelines. HIGH DOSE STATIN THERAPY DAILY Atorvastatin > than or = to 40 mg Rosuvastatin > than or = to 20 mg Amlodipine + Atorvastatin > than or = to 2.5/40 mg Ezetimibe + Simvastatin 10/80 mg Simvastatin 80mg Discharge Plan Admission Admit Date/Time: 05/21/24 16:30 Primary Reason for Your Visit: debility due to fall/hip fracture/ORIF Attending Provider: Luna Stone Primary Care Provider: Eduardo Streeter Discharge Orders/Prescriptions Prescriptions: New carvedilol 25 mg Tablet 25 mg PO 0700,1900 Qty: 1 0RF acetaminophen 500 mg Tablet 1,000 mg PO Q8 PRN (Reason: pain) Qty: 1 0RF bisacodyl 10 mg Suppository 10 mg MA X1 PRN (Reason: Constipation) Qty: 1 0RF Eliquis 5 mg Tablet 2.5 mg PO BID Qty: 14 0RF Rx Instructions: DC after the last dose given on 06/15/24 fluticasone propion-salmeterol 232-14 mcg/actuation Aerosol Powdr Breath Activated 1 inh inhalation Q12 Qty: 1 0RF metformin 500 mg Tablet 500 mg PO DAILY Qty: 1 0RF melatonin 3 mg Tablet 3 mg PO HS Qty: 1 0RF modafinil 200 mg Tablet 200 mg PO DAILY@0600 Qty: 30 0RF magnesium hydroxide 400 mg/5 mL Suspension 30 ml PO X1 PRN (Reason: Constipation) Qty: 1 0RF venlafaxine 75 mg Capsule,Extended Release 24hr 225 mg PO DAILY Qty: 3 0RF sennosides-docusate sodium [Stimulant Laxative Plus] 8.6-50 mg Tablet 2 tab PO BID Qty: 1 0RF nifedipine 60 mg Tablet Extended Release 24hr 60 mg PO 0700 Qty: 30 0RF tamsulosin 0.4 mg Capsule 0.8 mg PO QHS Qty: 1 0RF oxycodone 5 mg Tablet 10 mg PO 0700,1100 7 Days Qty: 28 0RF Continued aspirin 81 mg tablet,delayed release (DR/EC) 81 mg PO DAILY atorvastatin 80 mg tablet 80 mg PO QHS cyclobenzaprine 10 mg tablet 10 mg PO TID PRN (Reason: muscle spasm) lansoprazole 30 mg capsule,delayed release(DR/EC) 30 mg PO DAILY metformin 500 mg tablet 500 mg PO DAILY multivitamin Tablet 1 tab PO DAILY omega-3 fatty acids-fish oil [Fish Oil] 360-1,200 mg capsule 1 cap PO BID oxcarbazepine 150 mg tablet 150 mg PO BID pregabalin 200 mg capsule 200 mg PO BID clobetasol 0.05 % ointment 1 applic topical BID PRN (Reason: sores) cyanocobalamin (vitamin B-12) 1,000 mcg/mL solution 1,500 mcg IM QMONTH ascorbic acid (vitamin C) 500 mg tablet 500 mg PO BID Qty: 1 0RF Rx Instructions: take this with a meal and with the ferrous sulfate. ferrous sulfate 325 mg (65 mg iron) tablet 325 mg PO DAILY Qty: 1 0RF Rx Instructions: Take with a meal and with Vitamin C 500 mg. buprenorphine 10 mcg/hour patch weekly 1 patch transdermal QWEEK Qty: 2 0RF Discontinued carvedilol 25 mg tablet 12.5 mg PO BID melatonin 3 mg capsule 3 mg PO HS PRN (Reason: sleep) tamsulosin 0.4 mg capsule 0.8 mg PO BID venlafaxine 150 mg capsule,extended release 24hr 150 mg PO BID oxycodone 5 mg tablet 5 mg PO Q8H PRN (Reason: pain) Referrals / Follow Up: Eduardo Streeter DO [Primary Care Provider] - 06/20/24 9:00 am Dayan Mortensen PA [Non-Staff] - In 1 Week (Please call and make pt a post op f/u appt within 1 week) Disposition Disposition (needs filled in before D/C Order can be placed): [facility] Charges/Coding Visit Charges Inpatient E&M: 84858 Disch Hosp >30min
[2024-06-07 18:00] VITALS: BP 123/89; PULSE 89; RESP 16; TEMP 36.5; O2SAT 90
[2024-06-07] MEDS: cycloBENZAPRine HCl 10 MG Tablet PO (23:34)
[2024-06-07] MEDS: MELATONIN 3 MG TABLET PO (23:34)
[2024-06-07] MEDS: Atorvastatin Calcium 80 MG Tablet PO (23:34)
[2024-06-07] MEDS: Tamsulosin HCl 0.4 MG Capsule 0.8 MG PO (23:35)
[2024-06-08 05:23] VITALS: BP 123/77; PULSE 87; RESP 18; TEMP 36.6; O2SAT 90
[2024-06-08] MEDS: Acetaminophen 500 MG Tablet 1000 MG PO ×3 (06:42→20:47)
[2024-06-08] MEDS: Carvedilol 25 MG Tablet PO ×2 (06:42→20:02)
[2024-06-08] MEDS: Modafinil 200 MG Tablet PO (06:47)
[2024-06-08] MEDS: oxyCODONE 5 MG Tablet 10 MG PO ×2 (06:47→11:59)
[2024-06-08] MEDS: NIFEdipine 60 MG Tablet PO (06:48)
[2024-06-08] MEDS: metFORMIN HCl 500 MG Tablet PO (09:35)
[2024-06-08] MEDS: Multivitamins,Therapeutic Tablet 1 TABLET PO (09:35)
[2024-06-08] MEDS: APIXABAN 2.5 MG TABLET (WCH) PO ×2 (09:35→20:47)
[2024-06-08] MEDS: Lansoprazole 15 MG Capsule.DR 30 MG PO (09:35)
[2024-06-08] MEDS: Fluticasone/Salmeterol 232-14 Inhaler 1 PUFF INHALATION ×2 (09:36→20:47)
[2024-06-08] MEDS: Aspirin E.C. 81 MG Tablet PO (09:36)
[2024-06-08] MEDS: Venlafaxine XR 75 MG Capsule 225 MG PO (09:36)
[2024-06-08 11:45] VITALS: BP 122/71; PULSE 80
[2024-06-08] MEDS: Senna/Docusate Sodium 1 Tablet 2 TABLET PO (11:59)
[2024-06-08] MEDS: OXcarbazepine 150 MG Tablet PO ×2 (11:59→20:48)
[2024-06-08] MEDS: Cyanocobalamin (B12) 1,000 MCG/ML Vial 1500 MCG IM (12:01)
[2024-06-08] MEDS: Pregabalin 50 MG Capsule 200 MG PO ×2 (13:04→20:49)
[2024-06-08 13:18] VITALS: BP 122/65; PULSE 87
[2024-06-08] MEDS: cycloBENZAPRine HCl 10 MG Tablet PO (16:12)
[2024-06-08 17:08] VITALS: BP 134/67; PULSE 90; RESP 16; TEMP 36.2; O2SAT 96
[2024-06-08 19:59] VITALS: BP 147/60; PULSE 92
[2024-06-08] MEDS: Tamsulosin HCl 0.4 MG Capsule 0.8 MG PO (20:47)
[2024-06-08] MEDS: Atorvastatin Calcium 80 MG Tablet PO (20:47)
[2024-06-08] MEDS: MELATONIN 3 MG TABLET PO (20:48)
[2024-06-08] MEDS: Clobetasol Propionate 0.05% Ointment 1 APPLIC TOPICAL (20:48)
[2024-06-08] MEDS: oxyCODONE 5 MG Tablet PO (23:34)
[2024-06-09 05:34] VITALS: BP 152/77; PULSE 80; RESP 16; TEMP 36.8; O2SAT 95
[2024-06-09] MEDS: Carvedilol 25 MG Tablet PO (05:36)
[2024-06-09] MEDS: oxyCODONE 5 MG Tablet 10 MG PO ×2 (05:36→12:22)
[2024-06-09] MEDS: NIFEdipine 60 MG Tablet PO (05:36)
[2024-06-09] MEDS: Modafinil 200 MG Tablet PO (05:36)
[2024-06-09] MEDS: Acetaminophen 500 MG Tablet 1000 MG PO (05:36)
[2024-06-09] MEDS: Pregabalin 50 MG Capsule 200 MG PO (09:27)
[2024-06-09] MEDS: Lansoprazole 15 MG Capsule.DR 30 MG PO (09:27)
[2024-06-09] MEDS: APIXABAN 2.5 MG TABLET (WCH) PO (09:27)
[2024-06-09] MEDS: Clobetasol Propionate 0.05% Ointment 1 APPLIC TOPICAL (09:27)
[2024-06-09] MEDS: Fluticasone/Salmeterol 232-14 Inhaler 1 PUFF INHALATION (09:27)
[2024-06-09] MEDS: OXcarbazepine 150 MG Tablet PO (09:28)
[2024-06-09] MEDS: Venlafaxine XR 75 MG Capsule 225 MG PO (09:28)
[2024-06-09] MEDS: metFORMIN HCl 500 MG Tablet PO (09:30)
[2024-06-09] MEDS: Aspirin E.C. 81 MG Tablet PO (09:31)
[2024-06-09] MEDS: Multivitamins,Therapeutic Tablet 1 TABLET PO (09:31)
[2024-06-09] MEDS: Senna/Docusate Sodium 1 Tablet 2 TABLET PO (09:31)
[2024-06-09 09:34] VITALS: BP 154/80; PULSE 88
--- NOTE | 2024-06-09 14:00 | NURSING ---
DC to SNF and report given to nurse. Patients here for transport. Patient in good spirits.
== END 2024-06-09 14:00 | disposition skilled nursing facility (03) | DRG 560 ==
PROVIDERS: Admitting Provider Internal Medicine; PCP Family Medicine; Referring Provider Internal Medicine; Visit Provider Internal Medicine
DX: S72.141D Displaced intertrochanteric fracture of right femur, subsequent encounter for closed fracture with routine healing (principal); D62 Acute posthemorrhagic anemia; E87.1 Hypo-osmolality and hyponatremia; I69.351 Hemiplegia and hemiparesis following cerebral infarction affecting right dominant side; N30.01 Acute cystitis with hematuria; B96.1 Klebsiella pneumoniae [K. pneumoniae] as the cause of diseases classified elsewhere; I69.318 Other symptoms and signs involving cognitive functions following cerebral infarction; J44.9 Chronic obstructive pulmonary disease, unspecified; N18.31 Chronic kidney disease, stage 3a; F32.A Depression, unspecified; I12.9 Hypertensive chronic kidney disease with stage 1 through stage 4 chronic kidney disease, or unspecified chronic kidney disease; E66.89 Other obesity not elsewhere classified; I69.322 Dysarthria following cerebral infarction; G47.31 Primary central sleep apnea; M48.062 Spinal stenosis, lumbar region with neurogenic claudication; F41.9 Anxiety disorder, unspecified; E78.00 Pure hypercholesterolemia, unspecified; E61.1 Iron deficiency; W19.XXXD Unspecified fall, subsequent encounter; I69.398 Other sequelae of cerebral infarction; Z87.891 Personal history of nicotine dependence; R13.10 Dysphagia, unspecified; B96.4 Proteus (mirabilis) (morganii) as the cause of diseases classified elsewhere; G89.29 Other chronic pain; G47.00 Insomnia, unspecified; R33.8 Other retention of urine; N40.1 Benign prostatic hyperplasia with lower urinary tract symptoms; Z79.899 Other long term (current) drug therapy; Z79.82 Long term (current) use of aspirin; Z79.84 Long term (current) use of oral hypoglycemic drugs; Z68.35 Body mass index [BMI] 35.0-35.9, adult
CPT/HCPCS: 36415; 71046; 80048; 80053; 81001; 82274; 83735; 84100; 85014; 85018; 85025; 87077; 87086; 87088; 87186; 92507; 92523; 94668; 97110; 97116; 97129; 97130; 97140; 97162; 97166; 97530; 97535; 97802; 97803; J3420

== ENCOUNTER → 2024-06-19 | Outpatient (CLI) | payer MEDICARE, BC, SELFPAY ==
[2024-06-19 15:15] LABS: Absolute Lymphocyte Count 1.44 X10^3/uL (0.83-4.51); Absolute Neutrophil Count 8.4 X10^3/uL (2.0-7.7); Basophil# 0.04 X10^3/uL; Basophil% 0.3 % (0-1); Eosinophil# 0.03 X10^3/uL; Eosinophils% 0.3 % (0-5); Hematocrit 32.5 % (40-54); Hemoglobin 10.1 g/dL (13.0-16.5); Lymphocyte # 1.44 X10^3/ul (0.83-4.51); Lymphocyte % 12.2 % (19-41); Mean Corp Hgb Conc 31.1 g/dL (32-36); Mean Corpuscular Hgb 30.1 pg (27.0-32.0); Monocyte# 1.76 X10^3/uL; NRBC Flagged by Analyzer 0 % (0-5); Neutrophil # 8.43 X10^3/uL (2.7-7.7); Neutrophil % 71.7 % (47-70); POSITIVE DIFFERENTIAL YES; Platelet Count 259 K/mm3 (150-450); RBC Distribution Width CV 17.7 % (11.6-14.6); RBC Distribution Width SD 62.8 fl (35.1-43.9); Red Blood Count 3.35 M/mm3 (4.6-6.2); White Blood Count 11.8 K/mm3 (4.4-11.0)
[2024-06-19 15:23] LABS: ALB/GLOB Ratio 0.7 RATIO (0.9-2.4); AST(SGOT) 23 U/L (15-37); Alanine Aminotransfer ALT/SGPT 23 U/L (16-61); Albumin, Serum 2.8 g/dL (3.2-5.0); Alkaline Phosphatase 161 U/L (45-117); Anion Gap 6 (5-15); BUN 19 mg/dL (7-18); BUN/Creat Ratio 13.7 RATIO (10-20); Calcium,Total 9.4 mg/dL (8.5-10.1); Chloride 95 mmol/L (98-107); Creatinine, Serum 1.39 mg/dL (0.70-1.30); EST Glomerular Filtration Rate 54 mL/min (>60); Est Glom Filt Rate - Afr Amer 65 mL/min (>60); Globulin 4.2 g/dL (2.2-4.2); Glucose 100 mg/dL (74-106); Potassium 4.7 mmol/L (3.5-5.1); Sodium Level 131 mmol/L (136-145)
== END | disposition home or self-care (01) ==
LOC: BFHLAB 11:33
PROVIDERS: PCP Family Medicine; Visit Provider Nurse Practitioner Family
DX: R79.89 Other specified abnormal findings of blood chemistry (principal)
CPT/HCPCS: 36415; 80053; 85025

== ENCOUNTER → 2024-07-15 | Outpatient (CLI) | payer MEDICARE, BC, SELFPAY ==
[2024-07-15 17:59] LABS: Absolute Lymphocyte Count 1.54 X10^3/uL (0.83-4.51); Absolute Neutrophil Count 5.6 X10^3/uL (2.0-7.7); Basophil# 0.01 X10^3/uL; Basophil% 0.1 % (0-1); Hematocrit 36.5 % (40-54); Hemoglobin 11.5 g/dL (13.0-16.5); Lymphocyte # 1.54 X10^3/ul (0.83-4.51); Lymphocyte % 19.3 % (19-41); Mean Corp Hgb Conc 31.5 g/dL (32-36); Mean Corpuscular Hgb 31.3 pg (27.0-32.0); Mean Corpuscular Volume 99.2 fL (80-94); Mean Platelet Vol. 10.1 fl (6.2-12.0); Monocyte# 0.83 X10^3/uL; Monocyte% 10.4 % (0-10); NRBC Flagged by Analyzer 0 % (0-5); Neutrophil # 5.57 X10^3/uL (2.7-7.7); Neutrophil % 69.7 % (47-70); POSITIVE MORPHOLOGY YES; Platelet Count 290 K/mm3 (150-450); RBC Distribution Width CV 17.7 % (11.6-14.6); RBC Distribution Width SD 65.1 fl (35.1-43.9); Red Blood Count 3.68 M/mm3 (4.6-6.2)
[2024-07-15 18:10] LABS: Anion Gap 13 (5-15); BUN 18 mg/dL (4-19); BUN/Creat Ratio 15.6 RATIO (10-20); Calcium,Total 9.3 mg/dL (7.6-11.0); Carbon Dioxide 23.7 mmol/L (21.0-32.0); Chloride 100 mmol/L (98-108); Creatinine, Serum 1.18 mg/dL (0.70-1.20); EST Glomerular Filtration Rate 67 (>60); Glucose 107 mg/dL (70-99); Potassium 4.3 mmol/L (3.3-5.1); Sodium Level 137 mmol/L (133-145)
[2024-07-15 18:31] LABS: Differential Indicated SCAN CRITERIA MET
[2024-07-15 22:06] LABS: Anisocytosis 1+; Atypical Lymphocyte 1+ %; Polychromasia 1+
== END | disposition home or self-care (01) ==
LOC: BFHLAB 16:12
PROVIDERS: PCP Family Medicine; Referring Provider Family Medicine; Visit Provider Family Medicine
DX: D64.9 Anemia, unspecified (principal); R79.89 Other specified abnormal findings of blood chemistry
CPT/HCPCS: 36415; 80048; 85025

== ENCOUNTER → 2024-07-17 | Outpatient (CLI) | payer MEDICARE, BC, SELFPAY | END | disposition home or self-care (01) | LOC: LABSPEC 16:17 | PROVIDERS: PCP Family Medicine; Visit Provider Family Medicine | DX: N39.0 Urinary tract infection, site not specified (principal) | CPT/HCPCS: 87077; 87086; 87088; 87186 ==

== ENCOUNTER 2024-07-26 13:16 | Emergency (ER) | payer MEDICARE, BC, SELFPAY ==
[2024-07-26] VITALS (7 sets, daily range): BP systolic 105–117; BP diastolic 60–73; PULSE 69–82; RESP 16; TEMP 36.5–36.9; O2SAT 90–93; BMI 37.5
--- NOTE | 2024-07-26 13:34 | CT_ITS ---
EXAM: STROKE BRAIN/HEAD WITHOUT CONT CLINICAL HISTORY: NEURO DEFICIT, ACUTE, STROKE SUSPECTED COMPARISON: Comparison is made with prior MRI of the brain dated September 13, 2021. TECHNIQUE: Multiple axial tomographic images were obtained without intravenous contrast administration. Coronal and sagittal reconstruction was obtained as well. FINDINGS: Mild degree of cerebral atrophy. There is evidence of decreased attenuation in the posterior medial left occipital lobe. This may represent a subacute infarct. There is evidence of decreased bilateral periventricular white matter changes in keeping with chronic small-vessel disease. Old lacune in the left basal ganglion and left posterior thalamus. CT/STROKE Brain/Head without Cont IMPRESSION: Findings suggestive of subacute infarction with decreased attenuation in the po sterior medial left occipital lobe. Chronic changes. Red Alert: Subacute infarct in Left posterior medial occipital lobe. The critical information above was relayed directly by me by telephone to Roger Kaba on 07/26/2024 at 3:05 pm with readback verification. Reading Location: [place] [id number]
--- NOTE | 2024-07-26 13:34 | CT_ITS ---
PROCEDURE: STROKE CTA HEAD AND NECK W/CON 07/26/2024 REASON FOR EXAM: NEURO DEFICIT, ACUTE, STROKE SUSPECTED Right upper extremity weakness. TECHNIQUE: CTA imaging of the head and neck from the aortic arch to the skull vertex with intravenous contrast. 3D reconstructions. Coronal and Sagittal reconstruction series were provided. CONTRAST: Isovue 370 VOLUME: 99mL One or more dose reduction techniques were used (e.g., Automated exposure control, adjustment of the mA and/or kV according to patient size, use of iterative reconstruction technique). RADIATION DOSE SUMMARY: CTDlvol: 18.19 mGy DLP: 828.07 mGycm COMPARISON: CT scan of the head done earlier in the day. FINDINGS: Aortic Arch: Normal size and branching pattern. Mild atherosclerotic plaque. Brachiocephalic and Subclavians: Mild atherosclerotic plaque without significant stenosis. RIGHT Carotid: Right CCA: Unremarkable. Right ICA: Mild calcified and soft plaque. Maximum stenosis (NASCET): <50 % Right ECA: Unremarkable. LEFT Carotid: Left CCA: Unremarkable. Left ICA: Mild calcified and soft plaque. Maximum stenosis (NASCET): <50 % Left ECA: Unremarkable. Vertebrals: Codominant. Arise from the subclavians. Both vertebrals form the basilar. RIGHT Vertebral: Unremarkable. LEFT Vertebral: Unremarkable. Anatomy: [place] of [place] anatomy is normal. Aneurysm or avm: No intracranial aneurysms or large vascular malformations are identified. Anterior cerebral arteries: Unremarkable: Middle cerebral arteries: Unremarkable. Basilar artery: Unremarkable. Posterior cerebral arteries: Unremarkable. Other major branches of the posterior circulation: Unremarkable. Major venous structures: Unremarkable. Other findings: Atherosclerotic plaque formation of the cavernous portions of the internal carotid arteries bilaterally. CT/STROKE CTA Head AND Neck W/Con IMPRESSION: RIGHT CAROTID: LEFT CAROTID: VERTEBRALS: INTRACRANIAL: Other impression: Red Alert: No significant stenosis. The critical information above was relayed directly by me by telephone to Roger Kaba on 07/26/2024 at 3:00 pm with readback verification. Reading Location: [place] [id number]
--- NOTE | 2024-07-26 13:34 | EKG12_ITS ---
Test Reason : Blood Pressure : */* mmHG Vent. Rate : 78 BPM Atrial Rate : 78 BPM P-R Int : 176 ms QRS Dur : 84 ms QT Int : 368 ms P-R-T Axes : 52 17 48 degrees QTcB Int : 419 ms Normal sinus rhythm Normal ECG Confirmed by LISBETH DOVE, MARAH ([id number]), story editor ANANT JACOB ([id number]) on 07/29/2024 6:46:32 AM Referred By: Confirmed By: MARAH BOB MD
--- NOTE | 2024-07-26 13:36 | ED.VIS.STROK ---
HPI History of Present Illness Chief Complaint: Neuro S/Sx Informant: patient and spouse/S.O. Narrative Narrative: 69-year-old male was sitting in his wheelchair eating lunch little more than an hour prior to evaluation, when he felt like his right arm suddenly became very weak, and as a result he was unable to continue lifting his spoon to his mouth as he has been at the beginning of the meal. In continuing to attempt to do so, his arm became tremulous. He denies feeling any other acute neurologic symptoms. He states this lasted maybe half hour or so and has resolved now. He is in wheelchair because he had right hip surgery in May and is still getting outpatient rehab/therapy for it. Physical therapy came to the house yesterday. He still has pain in the right hip, which limits his range of motion there, and he was in a wheelchair as a result of this so he does not know if he had any acute weakness they are not since he did not try to use it. He had a stroke in the past, the left him with some mild right-sided residual weakness. However the patient states this was profoundly worse although he was able to move his right arm. He is on Eliquis. Patient had headache yesterday and asked for some Tylenol. The states that the last time he had an episode like this they did not seek medical care, but it also was after he had a headache and asked for Tylenol. [facility] Medical History Dysarthria as late effect of cerebrovascular accident (CVA) Dysphagia Coronary artery disease Hyperlipidemia Abnormality of gait as late effect of cerebrovascular accident (CVA) Depression Mild cognitive impairment Cerebrovascular disease HTN (hypertension) Glucose intolerance (impaired glucose tolerance) Insomnia Chronic renal failure (CRF), stage 3a Obesity (BMI 35.0-39.9 without comorbidity) Fatigue Dysarthria Chronic back pain greater than 3 months duration Lumbar canal stenosis Central sleep apnea Edentulous Right hemiparesis Transient ischemic attack Vision problems Stroke High cholesterol Migraines COPD (chronic obstructive pulmonary disease) History of emotional problems Chronic bronchitis UTI (urinary tract infection) Bone fracture Arthritis Home Medications ?Medication ?Instructions ?Recorded ?Last Taken ?Type aspirin 81 mg tablet,delayed 81 mg PO DAILY heart health 08/30/21 07/26/24 History release atorvastatin 80 mg tablet 80 mg PO DAILY cholesterol 08/30/21 07/26/24 History cyclobenzaprine 10 mg tablet 10 mg PO TID PRN muscle spasm 08/30/21 07/25/24 History lansoprazole 30 mg capsule,delayed 30 mg PO DAILY Gerd 08/30/21 07/26/24 History release metformin 500 mg tablet 500 mg PO DAILY DM 08/30/21 07/26/24 History multivitamin 1 tab PO DAILY supplement 08/30/21 07/26/24 History omega-3 fatty acids-fish oil 360 1 cap PO BID supplement 08/30/21 07/26/24 History mg-1,200 mg capsule (Fish Oil) pregabalin 200 mg capsule 200 mg PO BID pain 08/30/21 07/26/24 History clobetasol 0.05 % topical ointment 1 applic topical BID PRN sores 05/21/24 05/21/24 History ascorbic acid (vitamin C) 500 mg 500 mg PO BID supplement #1 TAB 06/07/24 07/26/24 Rx tablet bisacodyl 10 mg rectal suppository [address] X1 PRN Constipation #1 ea 06/07/24 Unknown Rx buprenorphine 10 mcg/hour weekly 1 patch transdermal QWEEK pain #2 06/07/24 07/19/24 Rx transdermal patch ea ferrous sulfate 325 mg (65 mg 325 mg PO DAILY supplement #1 TAB 06/07/24 07/26/24 Rx iron) tablet magnesium hydroxide 400 mg/5 mL 30 ml PO X1 PRN Constipation #1 mL 06/07/24 Unknown Rx oral suspension tamsulosin 0.4 mg capsule 0.8 mg (2 x 0.4 mg) PO QHS #1 cap 06/07/24 07/25/24 Rx venlafaxine 75 mg capsule,extended 225 mg (3 x 75 mg) PO DAILY #3 caps 06/07/24 07/26/24 Rx release 24 hr 3 mm syringe with 25-gauge 1 inch #9 ea 07/05/24 Unknown Rx needle acetaminophen 325 mg tablet 650 mg PO Q6H PRN fever or pain 07/26/24 07/25/24 History albuterol sulfate 90 mcg/actuation 2 puff inhalation Q4H PRN dyspnea 07/26/24 Unknown History aerosol inhaler budesonide-formoterol HFA 160 2 puff inhalation BID 07/26/24 Unknown History mcg-4.5 mcg/actuation aerosol inhaler carvedilol 25 mg tablet 25 mg PO BID 07/26/24 07/26/24 History cholecalciferol (vitamin D3) 125 125 mcg PO DAILY SUPPLEMENT 07/26/24 07/26/24 History mcg (5,000 unit) tablet (Vitamin D3) cyanocobalamin (vitamin B-12) 1,500 mcg IM QMONTH supplement 07/26/24 07/06/24 History 1,000 mcg/mL injection solution fluticasone 232 mcg-salmeterol 14 2 inh inhalation Q12 07/26/24 07/26/24 History mcg/actuation breath activated powdr melatonin 3 mg tablet 3 mg PO QHS 07/26/24 07/25/24 History modafinil 200 mg tablet 200 mg PO DAILY 07/26/24 07/26/24 History nifedipine 60 mg tablet,extended 60 mg PO DAILY 07/26/24 07/26/24 History release 24 hr oxycodone 10 mg tablet 10 mg PO BID PRN pain 07/26/24 07/25/24 History sennosides 8.6 mg-docusate sodium 2 tab PO BID PRN constipation 07/26/24 Unknown History 50 mg tablet (Stimulant Laxative Plus) Allergy/AdvReac Type Severity Reaction Status Date / Time tolmetin (From Tolectin) Allergy Severe Anaphylaxis Verified 07/26/24 13:20 Family History Mother Asthma Arthritis Anxiety Bowel disease Depression Hypertension Mental disorder CVA (cerebral vascular accident) Suicide attempt Father Heart disease Other Myocardial infarction Surgical History History of open reduction and internal fixation (ORIF) procedure History of neck surgery History of hernia surgery History of elbow surgery History of knee surgery Social History (Updated 05/22/24 @ 10:[address] Luna Stone DO) household members: spouse housing: house Smoking Status: Former smoker Tobacco: How many years used: 45 how long ago did patient quit smokin....was smoking 2-3 packs/day for 45 years. alcohol intake: never substance use type: does not use what type of physical activity do you participate in: none ROS ROS ED Constitutional Constitutional ED: Denies chills or fever(s) Eyes Eyes: Denies blurry vision, change in vision or diplopia ENT ENT ED: Denies rhinorrhea or sore throat Cardiovascular Cardiovascular: Denies chest pain or palpitations Respiratory/Chest Respiratory/Chest: Denies cough or dyspnea Gastrointestinal Gastrointestinal: Denies abdominal pain, diarrhea, nausea or vomiting Genitourinary Genitourinary ED: Denies dysuria or hematuria Musculoskeletal Musculoskeletal: Reports as per HPI and extremity pain; Denies back pain or neck pain Integumentary Denies abscess or rash Neurologic Neurologic: Reports weakness; Denies headache(s) or paresthesias Psychiatric Psychiatric: Denies suicidal thoughts EXAM Physical Exam Const Vital Signs: 07/26/24 13:17 07/26/24 13:34 07/26/24 13:34 Temperature 98.5 F Temperature Source Oral Pulse Rate 81 82 Respiratory Rate 16 16 Blood Pressure 105/73 105/60 Blood Pressure Mean 83 75 Pulse Ox 90 92 92 Oxygen Delivery Method Room Air Room Air Room Air 07/26/24 14:35 07/26/24 15:00 07/26/24 15:04 Temperature Temperature Source Pulse Rate 77 77 77 Respiratory Rate 16 16 Blood Pressure 114/67 112/68 112/68 Blood Pressure Mean 82 82 82 Pulse Ox 92 92 Oxygen Delivery Method Room Air Room Air Positive well nourished and well developed General Appearance ED: well developed and NAD HEENT Reports moist mucous membranes normocephalic and atraumatic Eyes PERRL and EOMs intact bilaterally Eyes Narrative: No visual field deficits Neck full ROM and supple Resp normal respiratory effort and clear to auscultation bilaterally Cardio regular rate, regular rhythm and no murmurs GI non-tender and non-distended Auscultation: normoactive bowel sounds Palpation: soft Back/Spine no CVA tenderness General Back: other FROM Extremity normal to inspection Extremity Narrative: Limited right hip range of motion due to pain with lifting. Internal and external rotation is without significant discomfort. General Extremety ED: Negative for edema, pulses abnormal or tenderness General Extremity: Negative for edema or pulses abnormal Neuro oriented x3, CN's II-XII intact bilaterally and no sensory deficits noted Neuro Narrative: Difficult to assess for weakness of the right lower extremity due to pain with moving hip, but knee flexion/extension is strong. Normal speech. Sensorium / Orientation: awake and alert Motor Exam: strength 5/5 throughout Psych mental status grossly normal Skin no rashes or lesions noted and no wounds NIHSS NIHSS Initial: 1a Level of Consciousness: 0 1b LOC Questions (Score 2 if aphasic/stupor): 0 1c LOC Commands (Only score 1st attempt): 0 2 Best Gaze (If aphasic, use reflexive mvmts.): 0 3 Visual: 0 4 Facial Palsy: 0 5 Motor Arm Right (UN = amputation/fusion): 0 5 Motor Arm Left: 0 6 Motor Leg Right: 0 6 Motor Leg Left: 0 7 Limb ataxia (Only + if out of proportion): 0 8 Sensory (Aphasia/stupor=0 or 1, coma=2): 0 9 Best Language: 0 10 Dysarthria (mute, coma=2, intubated=UN): 0 11 Extinction and Inattention (only scored if +): 0 Total Score: 0 MDM MDM MDM Narrative Medical decision making narrative: Patient has resolved neurologic symptoms NIH of 0, he has trouble lifting his right leg but is due to pain in his right hip some given him a 0 for strength on the scale with regards to his right leg. I performed a stroke workup including CT angiography of the head and neck to rule out LVO, he does not have any acute arterial occlusions, radiology called me concerning the scan though, he has what appears to be a subacute left-sided posterior occipital infarct. An occipital infarct would not cause the acute symptoms, so this may be old, but this is another reason to admit the patient for an MRI for further observation/evaluation. The rest of his blood work is noted, his EKG shows a sinus rhythm, and his vital signs have remained stable, 112/68. He has not been hypotensive, so I think although that is in the differential less likely to have caused the symptoms since he otherwise felt okay prior to arrival. Differential also includes migraine headache with neurologic symptoms since he was having a headache last night and before his other TIA. Spoke with hospitalist who agreed appropriate to admit the patient to observation, monitoring for recurrent symptoms, watch his blood pressure, and obtain an MRI. However it became evident later that the patient's daughter who is a physician at this hospital, preferred today be discharged home and family is okay with that as well, he has some dementia and history of worsening mental status even with short admission to the hospital. His ABCD 2 score is 4. They understand that he has an approximate 6% 7-day stroke risk if this truly was a TIA. Discussed with hospitalist as well, all in agreement that benefits outweigh the risks of sending the patient home at this time. I did confirm that the patient is continuing to take his aspirin and is on high-dose statin. I do not see record of a prior echo, however given his history of dementia daughter states unlikely would be intervened on, especially since he just had hip surgery with regards to anticoagulants, but this could be obtained as an outpatient if desired. understands to bring him back for any recurrent symptoms. Advised to follow-up soon as possible with her PCP. I do recommend increasing the aspirin to 325 daily as I discussed with them. ABCD? Score for TIA from [email or web address] on 07/26/2024 All calculations should be rechecked by clinician prior to use RESULT SUMMARY: 4 points Per the validation study, 4-5 points: Moderate Risk 2-Day Stroke Risk: 4.1% 7-Day Stroke Risk: 5.9% 90-Day Stroke Risk: 9.8% INPUTS: Age >=0 years ?> 1 = Yes BP >=40/90 mmHg ?> 0 = No Clinical features of the TIA ?> 2 = Unilateral weakness Duration of symptoms ?> 1 = 10-59 minutes History of diabetes ?> 0 = No Lab Data Attestation: I reviewed the patient's lab results. Labs: Laboratory Results - last 24 hr 07/26/24 13:45 WBC 6.2 RBC 3.62 L Hgb 11.6 L Hct 36.0 L MCV 99.4 H MCH 32.0 MCHC 32.2 RDW Std Deviation 60.9 H RDW Coeff of Trish 16.6 H Plt Count 233 MPV 9.6 Immature Gran % (Auto) 0.500 Neut % (Auto) 65.4 Lymph % (Auto) 23.2 [place] % (Auto) 9.0 Eos % (Auto) 1.4 Baso % (Auto) 0.5 Absolute Neuts (auto) 4.1 Absolute Lymphs (auto) 1.44 Nucleated RBC % 0 PT 13.9 INR 1.0 APTT 30.4 Sodium 139 Potassium 4.1 Chloride 102 Carbon Dioxide 27.5 Anion Gap 10 BUN 14 Creatinine 1.33 H Estim Creat Clear Calc 62.48 Est GFR (MDRD) Non-Af 58 L BUN/Creatinine Ratio 10.5 Glucose 114 H Calcium 9.3 Troponin T High Sens 18 Radiography Diagnostic Testing: Clinical Impression(s) from Imaging Studies Brain CT 07/26/24 13:34 IMPRESSION: Findings suggestive of subacute infarction with decreased attenuation in the posterior medial left occipital lobe. Chronic changes. Red Alert: Subacute infarct in Left posterior medial occipital lobe. The critical information above was relayed directly by me by telephone to Roger Pittman on 07/26/2024 at 3:05 pm with readback verification. Reading Location: [facility] Head/Neck CTA 07/26/24 13:34 IMPRESSION: RIGHT CAROTID: LEFT CAROTID: VERTEBRALS: INTRACRANIAL: Other impression: Red Alert: No significant stenosis. The critical information above was relayed directly by me by telephone to Roger Pittman on 07/26/2024 at 3:00 pm with readback verification. Reading Location: [facility] Rhythm Strip Rhythm Strip: Sinus Rhythm Rate: 80 Ectopy: None EKG Initial EKG: Attestation: I personally reviewed and interpreted this EKG as follows: Interpretation: Sinus Rhythm and No Acute Injury Pattern Comments: Nml axis & intervals; nml EKG Management Discussion w/another healthcare provider: Hospitalist and Radiologist Stroke Documentation Questions Stroke Team Activated: No (Symptoms resolved) Was Patient considered for Endovascular Intervention?: No-CTA negative, determined not to be an endovascular candidate IV Thrombolytic Administered: No (NIH 0 symptoms resolved, on Eliquis not candidate) Discharge Plan Triage Chief Complaint: Neuro S/Sx ED Provider: Roger Pittman Dx/Rx/DC Orders Clinical Impression: Brain TIA Instructions: ED TIA: Transient Ischemic Attack Prescriptions: No Action aspirin 81 mg tablet,delayed release (DR/EC) 81 mg PO DAILY atorvastatin 80 mg tablet 80 mg PO DAILY cyclobenzaprine 10 mg tablet 10 mg PO TID PRN (Reason: muscle spasm) Patient Comments: PT HAS BEEN TAKING ONE AT NIGHT. lansoprazole 30 mg capsule,delayed release(DR/EC) 30 mg PO DAILY Rx Instructions: TAKE BEFORE MEALS metformin 500 mg tablet 500 mg PO DAILY multivitamin Tablet 1 tab PO DAILY omega-3 fatty acids-fish oil [Fish Oil] 360-1,200 mg capsule 1 cap PO BID pregabalin 200 mg capsule 200 mg PO BID (DME) 3 mm syringe with 25-gauge 1 inch needle See Rx Instructions .Route .MEDSUPPLY Qty: 9 0RF Rx Instructions: As directed acetaminophen 325 mg tablet 650 mg PO Q6H PRN (Reason: fever or pain) cholecalciferol (vitamin D3) [Vitamin D3] 125 mcg (5,000 unit) tablet 125 mcg PO DAILY oxycodone 10 mg tablet 10 mg PO BID PRN (Reason: pain) Rx Instructions: PATIENT ONLY TAKES FOR PT albuterol sulfate 90 mcg/actuation HFA aerosol inhaler 2 puff inhalation Q4H PRN (Reason: dyspnea) carvedilol 25 mg Tablet 25 mg PO BID sennosides-docusate sodium [Stimulant Laxative Plus] 8.6-50 mg Tablet 2 tab PO BID PRN (Reason: constipation) melatonin 3 mg Tablet 3 mg PO QHS modafinil 200 mg Tablet 200 mg PO DAILY nifedipine 60 mg Tablet Extended Release 24hr 60 mg PO DAILY cyanocobalamin (vitamin B-12) 1,000 mcg/mL solution 1,500 mcg IM QMONTH Rx Instructions: TAKE ON 1ST OF THE MONTH budesonide-formoterol 160-4.5 mcg/actuation HFA aerosol inhaler 2 puff INHALATION BID Patient Comments: PT IS GOING TO USE AFTER [place] IS USED UP. fluticasone propion-salmeterol 232-14 mcg/actuation Aerosol Powdr Breath Activated 2 inh inhalation Q12 Patient Comments: USING UP, THEN SWITCHING TO OTHER INHALER. clobetasol 0.05 % ointment 1 applic topical BID PRN (Reason: sores) bisacodyl 10 mg Suppository [address] X1 PRN (Reason: Constipation) Qty: 1 0RF magnesium hydroxide 400 mg/5 mL Suspension 30 ml PO X1 PRN (Reason: Constipation) Qty: 1 0RF venlafaxine 75 mg Capsule,Extended Release 24hr 225 mg PO DAILY Qty: 3 0RF tamsulosin 0.4 mg Capsule 0.8 mg PO QHS Qty: 1 0RF ascorbic acid (vitamin C) 500 mg tablet 500 mg PO BID Qty: 1 0RF Rx Instructions: take this with a meal and with the ferrous sulfate. ferrous sulfate 325 mg (65 mg iron) tablet 325 mg PO DAILY Qty: 1 0RF Rx Instructions: Take with a meal and with Vitamin C 500 mg. buprenorphine 10 mcg/hour patch weekly 1 patch transdermal QWEEK Qty: 2 0RF Patient Comments: PT STATES THEY ARE STOPPING THOUGH. Primary Care Provider: Eduardo Streeter Referrals: Eduardo Streeter, DO [Primary Care Provider] - As soon as possible Print Language: Mozambican Disposition Disposition: Home, Self Care
[2024-07-26 13:55] LABS: Absolute Lymphocyte Count 1.44 X10^3/uL (0.83-4.51); Absolute Neutrophil Count 4.1 X10^3/uL (2.0-7.7); Basophil# 0.03 X10^3/uL; Basophil% 0.5 % (0-1); Eosinophil# 0.09 X10^3/uL; Eosinophils% 1.4 % (0-5); Hemoglobin 11.6 g/dL (13.0-16.5); Lymphocyte # 1.44 X10^3/ul (0.83-4.51); Lymphocyte % 23.2 % (19-41); Mean Corp Hgb Conc 32.2 g/dL (32-36); Mean Corpuscular Volume 99.4 fL (80-94); Mean Platelet Vol. 9.6 fl (6.2-12.0); Monocyte# 0.56 X10^3/uL; NRBC Flagged by Analyzer 0 % (0-5); Neutrophil # 4.06 X10^3/uL (2.7-7.7); Neutrophil % 65.4 % (47-70); Platelet Count 233 K/mm3 (150-450); RBC Distribution Width CV 16.6 % (11.6-14.6); RBC Distribution Width SD 60.9 fl (35.1-43.9); Red Blood Count 3.62 M/mm3 (4.6-6.2); White Blood Count 6.2 K/mm3 (4.4-11.0)
[2024-07-26] MEDS: 0.9% Normal Saline (500mL Bag) 500 ML 999 ML IV (13:55)
[2024-07-26 14:06] LABS: Prothrombin Time (Protime)PT. 13.9 SECONDS (11.7-14.9)
[2024-07-26 14:07] LABS: Partial Thromboplast Time 30.4 Seconds (24.1-36.2)
[2024-07-26 14:21] LABS: Anion Gap 10 (5-15); BUN 14 mg/dL (4-19); BUN/Creat Ratio 10.5 RATIO (10-20); Calcium,Total 9.3 mg/dL (7.6-11.0); Carbon Dioxide 27.5 mmol/L (21.0-32.0); Chloride 102 mmol/L (98-108); Creatinine, Serum 1.33 mg/dL (0.70-1.20); EST Glomerular Filtration Rate 58 (>60); Estimated Creatinine Clearance 62.48 ml/min (50-250); Glucose 114 mg/dL (70-99); Potassium 4.1 mmol/L (3.3-5.1); Sodium Level 139 mmol/L (133-145); Troponin T High Sensitivity 18 ng/L (<=22)
--- NOTE | 2024-07-26 15:30 | PCM.HP.STD ---
HPI - General HPI Narrative MICHELE ALLEN, is a 69 M who presents [facility] Medical History Dysarthria as late effect of cerebrovascular accident (CVA) Dysphagia Coronary artery disease Hyperlipidemia Abnormality of gait as late effect of cerebrovascular accident (CVA) Depression Mild cognitive impairment Cerebrovascular disease HTN (hypertension) Glucose intolerance (impaired glucose tolerance) Insomnia Chronic renal failure (CRF), stage 3a Obesity (BMI 35.0-39.9 without comorbidity) Fatigue Dysarthria Chronic back pain greater than 3 months duration Lumbar canal stenosis Central sleep apnea Edentulous Right hemiparesis Transient ischemic attack Vision problems Stroke High cholesterol Migraines COPD (chronic obstructive pulmonary disease) History of emotional problems Chronic bronchitis UTI (urinary tract infection) Bone fracture Arthritis Home Medications ?Medication ?Instructions ?Recorded ?Last Taken ?Type aspirin 81 mg tablet,delayed 81 mg PO DAILY heart health 08/30/21 07/26/24 History release atorvastatin 80 mg tablet 80 mg PO DAILY cholesterol 08/30/21 07/26/24 History cyclobenzaprine 10 mg tablet 10 mg PO TID PRN muscle spasm 08/30/21 07/25/24 History lansoprazole 30 mg capsule,delayed 30 mg PO DAILY Gerd 08/30/21 07/26/24 History release metformin 500 mg tablet 500 mg PO DAILY DM 08/30/21 07/26/24 History multivitamin 1 tab PO DAILY supplement 08/30/21 07/26/24 History omega-3 fatty acids-fish oil 360 1 cap PO BID supplement 08/30/21 07/26/24 History mg-1,200 mg capsule (Fish Oil) pregabalin 200 mg capsule 200 mg PO BID pain 08/30/21 07/26/24 History clobetasol 0.05 % topical ointment 1 applic topical BID PRN sores 05/21/24 05/21/24 History ascorbic acid (vitamin C) 500 mg 500 mg PO BID supplement #1 TAB 06/07/24 07/26/24 Rx tablet bisacodyl 10 mg rectal suppository 10 mg [place] X1 PRN Constipation #1 ea 06/07/24 Unknown Rx buprenorphine 10 mcg/hour weekly 1 patch transdermal QWEEK pain #2 06/07/24 07/19/24 Rx transdermal patch ea ferrous sulfate 325 mg (65 mg 325 mg PO DAILY supplement #1 TAB 06/07/24 07/26/24 Rx iron) tablet magnesium hydroxide 400 mg/5 mL 30 ml PO X1 PRN Constipation #1 mL 06/07/24 Unknown Rx oral suspension tamsulosin 0.4 mg capsule 0.8 mg (2 x 0.4 mg) PO QHS #1 cap 06/07/24 07/25/24 Rx venlafaxine 75 mg capsule,extended 225 mg (3 x 75 mg) PO DAILY #3 caps 06/07/24 07/26/24 Rx release 24 hr 3 mm syringe with 25-gauge 1 inch #9 ea 07/05/24 Unknown Rx needle acetaminophen 325 mg tablet 650 mg PO Q6H PRN fever or pain 07/26/24 07/25/24 History albuterol sulfate 90 mcg/actuation 2 puff inhalation Q4H PRN dyspnea 07/26/24 Unknown History aerosol inhaler budesonide-formoterol HFA 160 2 puff inhalation BID 07/26/24 Unknown History mcg-4.5 mcg/actuation aerosol inhaler carvedilol 25 mg tablet 25 mg PO BID 07/26/24 07/26/24 History cholecalciferol (vitamin D3) 125 125 mcg PO DAILY SUPPLEMENT 07/26/24 07/26/24 History mcg (5,000 unit) tablet (Vitamin D3) cyanocobalamin (vitamin B-12) 1,500 mcg IM QMONTH supplement 07/26/24 07/06/24 History 1,000 mcg/mL injection solution fluticasone 232 mcg-salmeterol 14 2 inh inhalation Q12 07/26/24 07/26/24 History mcg/actuation breath activated powdr melatonin 3 mg tablet 3 mg PO QHS 07/26/24 07/25/24 History modafinil 200 mg tablet 200 mg PO DAILY 07/26/24 07/26/24 History nifedipine 60 mg tablet,extended 60 mg PO DAILY 07/26/24 07/26/24 History release 24 hr oxycodone 10 mg tablet 10 mg PO BID PRN pain 07/26/24 07/25/24 History sennosides 8.6 mg-docusate sodium 2 tab PO BID PRN constipation 07/26/24 Unknown History 50 mg tablet (Stimulant Laxative Plus) Allergy/AdvReac Type Severity Reaction Status Date / Time tolmetin (From Tolectin) Allergy Severe Anaphylaxis Verified 07/26/24 13:20 Family History Mother Asthma Arthritis Anxiety Bowel disease Depression Hypertension Mental disorder CVA (cerebral vascular accident) Suicide attempt Father Heart disease Other Myocardial infarction Surgical History History of open reduction and internal fixation (ORIF) procedure History of neck surgery History of hernia surgery History of elbow surgery History of knee surgery Social History (Updated 05/22/24 @ 10:[address] Luna Stone DO) household members: spouse housing: house Smoking Status: Former smoker Tobacco: How many years used: 45 how long ago did patient quit smokin....was smoking 2-3 packs/day for 45 years. alcohol intake: never substance use type: does not use what type of physical activity do you participate in: none Vital Signs Vital Signs Vital Signs: 07/26/24 13:17 07/26/24 13:34 07/26/24 13:34 Temperature 98.5 F Temperature Source Oral Pulse Rate 81 82 Respiratory Rate 16 16 Blood Pressure 105/73 105/60 Blood Pressure Mean 83 75 Pulse Ox 90 92 92 Oxygen Delivery Method Room Air Room Air Room Air 07/26/24 14:35 07/26/24 15:00 07/26/24 15:04 Temperature Temperature Source Pulse Rate 77 77 77 Respiratory Rate 16 16 Blood Pressure 114/67 112/68 112/68 Blood Pressure Mean 82 82 82 Pulse Ox 92 92 Oxygen Delivery Method Room Air Room Air Weight Weight: 108.6 kg Body Mass Index (BMI) 37.5 Results Lab / Micro Data 07/26/24 13:45 07/26/24 13:45 Labs: Laboratory Results - last 24 hr 07/26/24 13:45: WBC 6.2, RBC 3.62 L, Hgb 11.6 L, Hct 36.0 L, MCV 99.4 H, MCH 32.0, MCHC 32.2, RDW Std Deviation 60.9 H, RDW Coeff of Trish 16.6 H, Plt Count 233, MPV 9.6, Immature Gran % (Auto) 0.500, Neut % (Auto) 65.4, Lymph % (Auto) 23.2, [place] % (Auto) 9.0, Eos % (Auto) 1.4, Baso % (Auto) 0.5, Absolute Neuts (auto) 4.1, Absolute Lymphs (auto) 1.44, Nucleated RBC % 0, PT 13.9, INR 1.0, APTT 30.4, Sodium 139, Potassium 4.1, Chloride 102, Carbon Dioxide 27.5, Anion Gap 10, BUN 14, Creatinine 1.33 H, Estim Creat Clear Calc 62.48, Est GFR (MDRD) Non-Af 58 L, BUN/Creatinine Ratio 10.5, Glucose 114 H, Calcium 9.3, Troponin T High Sens 18 Rhythm Strip Rhythm Strip: Sinus Rhythm Rate: 80 Ectopy: None Imaging Radiology Impression Brain CT 07/26/24 13:34 IMPRESSION: Findings suggestive of subacute infarction with decreased attenuation in the posterior medial left occipital lobe. Chronic changes. Red Alert: Subacute infarct in Left posterior medial occipital lobe. The critical information above was relayed directly by me by telephone to Roger Pittman on 07/26/2024 at 3:05 pm with readback verification. Reading Location: [place] [id number] Head/Neck CTA 07/26/24 13:34 IMPRESSION: RIGHT CAROTID: LEFT CAROTID: VERTEBRALS: INTRACRANIAL: Other impression: Red Alert: No significant stenosis. The critical information above was relayed directly by me by telephone to Roger Pittman on 07/26/2024 at 3:00 pm with readback verification. Reading Location: [place] [address]
[2024-07-26 18:55] LABS: Hemoglobin A1c 5.5 % (<=5.6)
== END 2024-07-26 16:15 | disposition home or self-care (01) ==
PROVIDERS: Hospitalist; Emergency Provider Emergency Medicine; PCP Family Medicine; Visit Provider Emergency Medicine
DX: G45.9 Transient cerebral ischemic attack, unspecified (principal); J44.9 Chronic obstructive pulmonary disease, unspecified; E11.22 Type 2 diabetes mellitus with diabetic chronic kidney disease; I12.9 Hypertensive chronic kidney disease with stage 1 through stage 4 chronic kidney disease, or unspecified chronic kidney disease; I25.10 Atherosclerotic heart disease of native coronary artery without angina pectoris; N18.9 Chronic kidney disease, unspecified; E78.00 Pure hypercholesterolemia, unspecified; Z79.51 Long term (current) use of inhaled steroids; Z79.82 Long term (current) use of aspirin; Z79.84 Long term (current) use of oral hypoglycemic drugs; Z79.899 Other long term (current) drug therapy; Z86.73 Personal history of transient ischemic attack (TIA), and cerebral infarction without residual deficits; Z87.891 Personal history of nicotine dependence
CPT/HCPCS: 70450; 70496; 70498; 80048; 83036; 84443; 84484; 85025; 85610; 85730; 93005; 96360; 99285; Q9967

== ENCOUNTER → 2024-08-06 | Outpatient (CLI) | payer MEDICARE, BC, SELFPAY ==
--- NOTE | 2024-08-06 10:25 | MRI_ITS ---
PROCEDURE: BRAIN W/WO CONTRAST (MRIBRWW), 08/06/2024 REASON FOR EXAM: TIA,HX CVA COMPARISON: 07/26/2024 TECHNIQUE: Multisequence multiplanar MRI brain was performed with and without intravenous contrast. Contrast: 21 mL Clariscan. FINDINGS: Cerebrum: No acute infarct, mass, or appreciable intracranial hemorrhage. Similar remote lacunar infarcts in the LEFT posterolateral thalamus and LEFT caudate. Advanced patchy supratentorial white matter abnormalities are similar to minimally increased from 09/13/2021 with most notable increase in the LEFT occipital region possibly accounting for the recent CT finding, presumed chronic microvascular ischemic changes. Mild cerebral volume loss. Cerebellum: No acute infarct, mass, or appreciable intracranial hemorrhage. Redemonstrated appearing RIGHT cerebellar hemispheric infarct inferomedially, new from 09/13/2021. Brainstem: Unremarkable. Ventricles/extra-axial spaces: Unremarkable. Major flow voids: Grossly unremarkable within limits of nondedicated technique. Paranasal sinuses: Mild mucosal thickening in the ethmoid air cells.. Scalp/calvarium: Unremarkable. Orbits: Grossly unremarkable within limits of nondedicated technique. Other: None. MRI/Brain W/WO Contrast IMPRESSION: 1. No specific evidence of an acute intracranial process. 2. Chronic/age related findings and additional description as above. Reading Location: [id number]
== END | disposition home or self-care (01) ==
LOC: MRI 10:05
PROVIDERS: PCP Family Medicine; Referring Provider Family Medicine; Visit Provider Family Medicine
DX: G45.9 Transient cerebral ischemic attack, unspecified (principal); Z86.73 Personal history of transient ischemic attack (TIA), and cerebral infarction without residual deficits
CPT/HCPCS: 70553; A9575

== ENCOUNTER → 2025-01-09 | Outpatient (CLI) | payer MEDICARE, BC, SELFPAY ==
[2025-01-09 15:19] LABS: Hematocrit 37.5 % (40-54); Hemoglobin 12.3 g/dL (13.0-16.5); Mean Corp Hgb Conc 32.8 g/dL (32-36); Mean Corpuscular Volume 98.4 fL (80-94); Mean Platelet Vol. 10.5 fl (6.2-12.0); Platelet Count 244 K/mm3 (150-450); RBC Distribution Width CV 13.8 % (11.6-14.6); RBC Distribution Width SD 50.3 fl (35.1-43.9); Red Blood Count 3.81 M/mm3 (4.6-6.2); White Blood Count 5.1 K/mm3 (4.4-11.0)
[2025-01-09 15:47] LABS: AST(SGOT) 20 U/L (<=37); Alanine Aminotransfer ALT/SGPT 19 U/L (<=46); Albumin, Serum 3.7 g/dL (3.4-4.8); Alkaline Phosphatase 110 U/L (40-129); Anion Gap 11 (5-15); BUN 12 mg/dL (4-19); BUN/Creat Ratio 9.2 RATIO (10-20); Calcium,Total 9.0 mg/dL (7.6-11.0); Carbon Dioxide 24.3 mmol/L (21.0-32.0); Chloride 104 mmol/L (98-108); Cholesterol 150 mg/dL (<=200); Ferritin 133 ng/mL (37-417); Globulin 2.3 g/dL (2.2-4.2); Glucose 95 mg/dL (70-99); Low Density Lipoprotein Calc. 66 mg/dL; Potassium 4.0 mmol/L (3.3-5.1); Triglycerides 131 mg/dL; Very Low Density Lipoprotein 26 mg/dL (5-40); cholesterol:hdl ratio screen 2.60
[2025-01-09 17:00] LABS: Iron 111 ug/dL (65-175); Magnesium 1.7 mg/dL (1.5-2.2)
== END | disposition home or self-care (01) ==
LOC: MTLAB 13:10
PROVIDERS: PCP Family Medicine; Referring Provider Psychiatry & Neurology Neurology; Visit Provider Psychiatry & Neurology Neurology
DX: G45.9 Transient cerebral ischemic attack, unspecified (principal); E78.5 Hyperlipidemia, unspecified; R53.82 Chronic fatigue, unspecified; Z86.2 Personal history of diseases of the blood and blood-forming organs and certain disorders involving the immune mechanism
CPT/HCPCS: 36415; 80053; 80061; 82728; 83540; 83735; 85027

== ENCOUNTER → 2025-01-16 | Outpatient (CLI) | payer MEDICARE, BC, SELFPAY ==
[2025-01-16 18:18] LABS: PSA,Total - Annual Screen 3.79 ng/mL (0.02-4.00)
== END | disposition home or self-care (01) ==
LOC: BFHLAB 15:29
PROVIDERS: PCP Family Medicine; Visit Provider Family Medicine
DX: Z12.5 Encounter for screening for malignant neoplasm of prostate (principal)
CPT/HCPCS: 36415; 84153; G0103

== ENCOUNTER → 2025-01-31 | Outpatient (CLI) | payer MEDICARE, BC, SELFPAY ==
--- NOTE | 2025-01-31 13:55 | ECHOD_ITS ---
Reason For Study Reason For Study: Edema, Hx of CVA/TIA Procedure This was a 2D Doppler, Color Flow transthoracic echocardiogram. Exam performed in department. Left Ventricle Normal LV size. Left ventricular systolic function is normal. The left ventricular ejection fraction is 60 %. Normal diastology for age. No regional wall motion abnormalities noted. Right Ventricle Normal RV size. Normal systolic function. Atria Normal left atrium. Normal right atrium. Hypermobile atrial septum. Bubble contrast study is positive for PFO. Mitral Valve There is Mild focal posterior mitral annular calcification. Mild (1+) mitral valve insufficiency. Tricuspid Valve Normal tricuspid valve. Unable to estimate RV systolic pressure due to insufficient tricuspid regurgitant envelope. Aortic Valve Trisinus/trileaflet aortic valve. Pulmonic Valve Normal pulmonic valve. Trivial pulmonic valve insufficiency. Great Vessels Normal sized aortic root. Pericardium/Pleural No pericardial effusion. Medication Performed a rapid injection of agitated mix of 9 cc saline and 1cc air to assess for atrial septal defect. MMode/2D Measurements & Calculations LVIDd: 4.5 cm IVSd: 1.1 cm Ao root diam: 3.2 cm LVIDs: 3.0 cm LVPWd: 0.93 cm RVDd: 3.4 cm FS: 34.0 % LAV(MOD-bp): 32.3 ml LVAd ap4: 24.2 cm2 SV(MOD-sp4): 38.7 ml LAV(MOD-bp) Indexed: 15.0 ml/m2 LVLd ap4: 7.3 cm SI(MOD-sp4): 18.0 ml/m2 LAV(MOD-sp2): 30.0 ml EDV(MOD-sp4): 67.5 ml LAV(MOD-sp4): 31.4 ml EDV(sp4-el): 68.2 ml LVAs ap4: 14.4 cm2 LVLs ap4: 6.2 cm ESV(MOD-sp4): 28.8 ml ESV(sp4-el): 28.5 ml EF(MOD-sp4): 57.4 % EF(sp4-el): 58.2 % SV(sp4-el): 39.7 ml LA A4 area: 13.1 cm2 LA dimension(2D): 3.3 cm RA A4 area: 14.7 cm2 TAPSE: 1.9 cm Time Measurements MV dec time: 0.18 sec Doppler Measurements & Calculations MV E max lucas: 58.2 cm/sec Lat Peak E' Lucas: 9.7 cm/sec Med Peak E' Lucas: 6.8 cm/sec MV A max lucas: 70.0 cm/sec E/E' lat: 6.0 E/E' med: 8.5 MV E/A: 0.83 MV dec slope: 330.5 cm/sec2 Ao V2 max: 109.0 cm/sec LV V1 max: 92.7 cm/sec Ao max P.8 mmHg LV V1 max P.4 mmHg Ao V2 mean: 81.9 cm/sec LV V1 mean P.7 mmHg Ao mean P.8 mmHg LV V1 mean: 60.1 cm/sec Ao V2 VTI: 25.6 cm LV V1 VTI: 20.2 cm AV (velocity ratio): 0.79 PA V2 max: 86.6 cm/sec PI end-d lucas: 105.2 cm/sec ECHO/Echo Complete Interpretation Summary The left ventricular ejection fraction is 60 %. Normal LV size. There is Mild focal posterior mitral annular calcification. Mild (1+) mitral valve insufficiency. Bubble contrast study is positive for PFO. Ordering Physician: Isaac Gaytan Referring Physician: Eduardo Streeter Performed By: Crystal Montoya RDCS, RVT
== END | disposition home or self-care (01) ==
LOC: CVS 13:53
PROVIDERS: PCP Family Medicine; Referring Provider Psychiatry & Neurology Neurology; Visit Provider Psychiatry & Neurology Neurology
DX: G45.9 Transient cerebral ischemic attack, unspecified (principal); R60.0 Localized edema
CPT/HCPCS: 93306; A4216